=== PATIENT | male | born 1945 | race Two or more races ===

== ENCOUNTER 2016-09-03 09:06 | Inpatient (IN) | payer MEDICAID ==
[~2016-09-03] VITALS: Ht 170.2 cm; Wt 92.3 kg
[2016-09-03] VITALS (8 sets, daily range): BP systolic 131–150; BP diastolic 61–70; PULSE 64–75; RESP 18–22
[~2016-09-03 09:06] MED LIST: ATOR80TA75 PO; CALC0.255 PO; CARV25TA97 PO; CLOP75TA27 PO; GABA300C PO; INSU100C SC; ISOS30TA5 PO; LANT3I SC; LOSA50TA6 PO; NIT4 SL; TAMS-14 PO
[2016-09-03] MEDS ORDERED: ALBUTEROL 0.5% (NEB) 2.5 MG/0.5 ML AMP ONE (09:12)
[2016-09-03] MEDS ORDERED: IPRATROPIUM (NEB) 0.5 MG/2.5 ML AMP ONE (09:12)
[2016-09-03] MEDS ORDERED: METHYLPREDNISOLONE 125 MG INJ IV STA (09:17)
[2016-09-03] MEDS ORDERED: IPRATROPIUM (NEB) 0.5 MG/2.5 ML AMP INH STA (09:17)
[2016-09-03] MEDS ORDERED: ALBUTEROL 0.5% (NEB) 2.5 MG/0.5 ML AMP INH STA (09:17)
--- NOTE | 2016-09-03 09:39 | RADRPT ---
PROCEDURE: XR Chest. CLINICAL INDICATION: Shortness of breath with possible sepsis. TECHNIQUE: Single frontal view of the chest was obtained COMPARISON: No. FINDINGS: The soft tissues are normal. The film is under penetrated and limits bone detail. There is narrowi ng of the right subacromial joint space. Monitoring electrodes are draped across chest. The heart is enlarged. The cardiomediastinal silhouette and hilar structures are normal. The pulmonary vascul ature is increased. There are vascular calcifications in the aortic arch. Bilateral interstitial and alveolar pulmonary edema is identified. There are bilateral pleural effusions. IMPRESSION: 1. Cardiomegaly with congestive heart failure, interstitial pulmonary edema and bilateral pleural ef fusions. 2. Chronic right rotator cuff tear. RPTAT:AAJJ Physician Rose Date Time Electronically viewed and signed by Bossman Pineda Physician on 09/03/2016 09:38 VALORIE/
[2016-09-03] MEDS ORDERED: FER325 PO (09:49)
[2016-09-03] MEDS ORDERED: FINA5TAB4 PO (09:49)
[2016-09-03] MEDS ORDERED: DOCU-159 PO (09:49)
[2016-09-03] MEDS ORDERED: FURO-109 PO (09:50)
[2016-09-03] MEDS ORDERED: GABA300C16 PO (09:50)
[2016-09-03] MEDS ORDERED: INSU100C SQ (09:52)
[2016-09-03] MEDS ORDERED: ISOS30TA5 PO (09:52)
[2016-09-03] MEDS ORDERED: TICA90TA PO (09:53)
[2016-09-03] MEDS ORDERED: PANT40TA3 PO (09:53)
[2016-09-03 10:05] LABS: ADD SCAN DIFF NO
[2016-09-03 10:18] LABS: ALBUMIN 4.2 g/dl (3.3-4.9); POTASSIUM 3.7 mmol/L (3.5-5.1)
[2016-09-03 10:21] LABS: ALBUMIN/GLOBULIN RATIO 1.07; BILIRUBIN,INDIRECT 0.4 mg/dl (0-1.1); BILIRUBIN,TOTAL 0.4 mg/dl (0.2-1.3); CALCIUM 9.5 mg/dl (8.4-10.2); CREATININE 2.31 mg/dl (0.61-1.24); TOTAL PROTEIN 8.1 g/dl (6.1-8.1)
[2016-09-03 10:23] LABS: BASOPHILS % 0.4 % (0.0-2.0); EOSINOPHILS # 0.3 10^3/ul (0.0-0.5); HEMATOCRIT 40.4 % (42.0-52.0); HEMOGLOBIN 12.5 g/dl (14.0-18.0); LYMPHOCYTES # 1.8 10^3/ul (0.8-2.9); LYMPHOCYTES % 19.1 % (15.0-51.0); MEAN CORPUSCULAR HEMOGLOBIN 27.4 pg (29.0-33.0); MEAN CORPUSCULAR HGB CONC 30.9 g/dl (32.0-37.0); MEAN CORPUSCULAR VOLUME 88.4 fl (82.0-101.0); MEAN PLATELET VOLUME 11.6 fl (7.4-10.4); MONOCYTE # 0.4 10^3/ul (0.3-0.9); MONOCYTES % 4.2 % (0.0-11.0); NEUTROPHIL # 6.9 10^3/ul (1.6-7.5); PLATELET COUNT 240 10^3/UL (140-415); RED BLOOD COUNT 4.57 10^6/ul (4.70-6.10); WHITE BLOOD COUNT 9.5 10^3/ul (4.8-10.8)
[2016-09-03 10:27] LABS: INR 1.03; PROTIME 13.5 Sec (12.2-14.2); PT RATIO 1.1
[2016-09-03 10:28] LABS: PARTIAL THROMBOPLASTIN TIME 30.4 Sec (25.0-35.0)
[2016-09-03] MEDS ORDERED: FUROSEMIDE 40 MG INJ IV ONE (10:30)
[2016-09-03 10:32] LABS: TROPONIN-I 0.043 ng/ml (0.00-0.12)
[2016-09-03 10:37] LABS: ADD UMIC YES; URINE BILIRUBIN (Dip) NEGATIVE (NEGATIVE); URINE BLOOD (Dip) 1+ (NEGATIVE); URINE COLOR LT. YELLOW (YELLOW); URINE GLUCOSE (Dip) NEGATIVE (NEGATIVE); URINE KETONES (Dip) NEGATIVE (NEGATIVE); URINE LEUKOCYTE ESTERASE (Dip) NEGATIVE (NEGATIVE); URINE NITRITE (Dip) NEGATIVE (NEGATIVE); URINE TOTAL PROTEIN (Dip) 1+ (NEGATIVE); URINE UROBILINOGEN (Dip) 0.2 E.U./dL (0.1-1.0)
[2016-09-03 10:47] LABS: BACTERIA,URINE RARE; URINE RBCS 0-2 /HPF (0)
[2016-09-03] MEDS ORDERED: ONDANSETRON 4 MG INJ IV PRN (11:30)
[2016-09-03] MEDS ORDERED: ACETAMINOPHEN 325 MG TAB PO PRN ×2 (11:30→13:30)
--- NOTE | 2016-09-03 11:50 | ERA ---
ER Documentation Chief Complaint Date/Time DATE: 09/03/16 TIME: 11:36 Chief Complaint SOB SINCE THIS AM HPI This is a 71-year-old male with a known history of COPD, coronary artery disease with previous coronary artery bypass graft, cardiac stent placed at [facility] in Feb 2016 and congestive heart failure. Patient quit tobacco 20 years prior to arrival. The patient is on CPAP at night. About an hour prior to arrival the patient awoke and had severe difficulty breathing. His daughter indicated that he became diaphoretic. His dyspnea worsened and therefore she immediately brought the patient to the emergency department to be further evaluated. The patient has not had a productive or nonproductive cough. He has had no fevers or shaking or chills. He has not recently been placed on antibiotics. He has a severe allergy to aspirin which results in anaphylactic angioedema reaction. The patient denies any chest pain or pressure that radiates to the neck arm back or jaw ROS All systems reviewed and are negative except as per history of present illness. Medications Home Meds Reported Medications Ticagrelor* (Brilinta*) 90 Mg Tablet, 90 MG PO Q12, TAB 09/03/16 Pantoprazole* (Protonix*) 40 Mg Tablet.dr, 40 MG PO DAILY, TAB 09/03/16 Isosorbide Mononitrate* (Isosorbide Mononitrate*) 30 Mg Tab.er.24h, 30 MG PO DAILY, TAB 09/03/16 Insulin Lispro (Humalog) 100 Unit/1 Ml Cartridge, 5 UNIT SQ AC MEALS 09/03/16 Gabapentin* (Gabapentin*) 300 Mg Capsule, 300 MG PO QHS, #60 CAP 09/03/16 Furosemide* (Lasix*) 40 Mg Tablet, 40 MG PO DAILY, TAB 09/03/16 Finasteride* (Finasteride*) 5 Mg Tablet, 5 MG PO DAILY, TAB 09/03/16 Ferrous Sulfate* (Ferrous Sulfate*) 325 Mg Tabec, 325 MG PO BID, TAB 09/03/16 Docusate Sodium* (Docusate Sodium*) 100 Mg Capsule, 100 MG PO BID, #60 CAP 09/03/16 Insulin Glargine* (Lantus*) 100 Unit/Ml Soln, 40 UNIT SC HS, EA 01/24/15 Atorvastatin* (Atorvastatin*) 80 Mg Tablet, 80 MG PO HS, TAB 01/24/15 Carvedilol* (Coreg*) 25 Mg Tablet, 25 MG PO BID, TAB 01/24/15 Calcitriol* (Rocaltrol*) 0.25 Mcg Capsule, 0.25 MCG PO DAILY, CAP 01/24/15 Tamsulosin Hcl* (Flomax*) 0.4 Mg Cap.er.24h, 0.4 MG PO DAILY, CAP 01/24/15 Nitroglycerin* (Nitrostat*) 0.4 Mg Tab.subl, 0.4 MG SL Q5MIN Y for CHEST PAIN, BOTTLE 01/24/15 Discontinued Reported Medications Losartan Potassium* (Losartan Potassium*) 50 Mg Tablet, 50 MG PO DAILY, TAB 01/24/15 Insulin Lispro (Humalog) 100 U/Ml Cartridge, 20-25 UNITS SC AC MEALS, EA 01/24/15 Gabapentin* (Neurontin*) 300 Mg Capsule, 600 MG PO TID, CAP 01/24/15 Discontinued Scripts Isosorbide Mononitrate* (Isosorbide Mononitrate*) 30 Mg Tabsr, 60 MG PO DAILY, # 30 Prov:GREGORIOJERRY Fernandez 01/28/15 Clopidogrel Bisulfate (Clopidogrel) 75 Mg Tab, 75 MG PO DAILY for 30 Days, 2 Refills Prov:JERRY PERKINS 01/28/15 Allergies Allergies: Coded Allergies: amoxicillin (Verified Allergy, Intermediate, RASH, 09/03/16) aspirin (Verified Allergy, Intermediate, RASH, 09/03/16) ciprofloxacin (Verified Allergy, Intermediate, RASH, 09/03/16) niacin (Verified Allergy, Intermediate, RASH, 09/03/16) simvastatin (Verified Allergy, Intermediate, RASH, 09/03/16) tetracycline (Verified Allergy, Mild, RASH, 09/03/16) pentoxifylline (Verified Allergy, Unknown, VOMIT, 09/03/16) PMhx/Soc History of Surgery: Yes (bypasss, R great toe amputation, coronary stent, appendectomy) Anesthesia Reaction: No Hx Neurological Disorder: Yes (STROKE) Hx Respiratory Disorders: Yes (SLEEP APNEA USES CPAP AT NIGHT) Hx Cardiac Disorders: Yes (HTN, CAD, VASCULITIS, SC) Hx Psychiatric Problems: No Hx Miscellaneous Medical Probl: Yes (heart attack x8,htn, high cholesterol. PVD , renal insuff) Hx Alcohol Use: Yes (1/4 BOTTLE OF WHISKEY, STOPPED 3 YRS AGO) Hx Substance Use: Yes (ETOH) Hx Tobacco Use: Yes (PACK PER DAY, STOPPED 15 YRS AGO) Smoking Status: Former smoker Physical Exam Vitals Vital Signs Date Time Temp Pulse Resp B/P Pulse Ox O2 Delivery O2 Flow Rate FiO2 09/03/16 11:22 64 18 133/72 100 BIPAP 10.0 09/03/16 10:21 68 18 110/68 100 BIPAP 8.0 09/03/16 09:30 75 100 35 09/03/16 09:30 75 31 09/03/16 09:20 75 28 155/67 100 Non Rebreather 15.0 09/03/16 09:15 98.9 74 22 155/87 88 Physical Exam Constitutional:Well-developed. Well-nourished. Patient in severe respiratory distress HEENT:Normocephalic. Atraumatic.Pupils were equal round reactive to light. Moist mucous membranes.No tonsillar exudates. Neck: No nuchal rigidity. No lymphadenopathy. No posterior cervical spine tenderness or step-offs. Respiratory: Patient unable to speak without becoming short of breath. No breath sounds were heard on auscultation bilaterally. Tachypneic. Using accessory muscles of respirations. Cardiovascular: Tachycardic with regular rhythm.No murmurs. No rubs were appreciated.S1, S2 normal. Distal pulses are palpable 2+ bilaterally. GI: Abdomen was soft. Nontender. Non Distended. No pulsatile abdominal masses or bruits. No rebound. No guarding. Bowel sounds were present and normal. Muscle skeletal: Full range of motion of both the upper and lower extremities bilaterally.Normal muscle tone.No assymetrical calf tenderness or swelling. Skin: Diaphoretic with no petechia, no purpura. No lesions on the palms or the soles of the feet. No maculopapular rash. NEURO: Patient was alert, awake, orientated x3.No facial droop. Gait not observed as patient was in severe respiratory distress. No focal neurological deficits. Result Diagram: 09/03/1694709/03/1648 Results 24 hrs Laboratory Tests Test 09/03/16 09:45 09/03/16 09:48 Lactic Acid Level 1.1mmol/L White Blood Count 9.510^3/ul Red Blood Count 4.5710^6/ul Hemoglobin 12.5g/dl Hematocrit 40.4% Mean Corpuscular Volume 88.4fl Mean Corpuscular Hemoglobin 27.4pg Mean Corpuscular Hemoglobin Concent 30.9g/dl Red Cell Distribution Width 15.0% Platelet Count 55882^3/UL Mean Platelet Volume 11.6fl Neutrophils % 73.0% Lymphocytes % 19.1% Monocytes % 4.2% Eosinophils % 3.0% Basophils % 0.4% Nucleated Red Blood Cells % 0.0/100WBC Neutrophils # 6.910^3/ul Lymphocytes # 1.810^3/ul Monocytes # 0.410^3/ul Eosinophils # 0.310^3/ul Basophils # 0.010^3/ul Nucleated Red Blood Cells # 0.010^3/ul Prothrombin Time 13.5Sec Prothrombin Time Ratio 1.1 INR International Normalized Ratio 1.03 Activated Partial Thromboplast Time 30.4Sec Urine Color LT. YELLOW Urine Clarity CLEAR Urine pH 5.5 Urine Specific [place] 1.015 Urine Ketones NEGATIVE Urine Nitrite NEGATIVE Urine Bilirubin NEGATIVE Urine Urobilinogen 0.2 E.U./dL Urine Leukocyte Esterase NEGATIVE Urine Microscopic RBC 0-2/HPF Urine Microscopic WBC 0-2/HPF Urine Bacteria RARE Urine Hemoglobin 1+ Urine Glucose NEGATIVE% Urine Total Protein 1+ Sodium Level 142mmol/L Potassium Level 3.7mmol/L Chloride Level 103mmol/L Carbon Dioxide Level 26mmol/L Anion Gap 17 Blood Urea Nitrogen 39mg/dl Creatinine 2.31mg/dl Glucose Level 208mg/dl Calcium Level 9.5mg/dl Total Bilirubin 0.4mg/dl Direct Bilirubin 0.00mg/dl Indirect Bilirubin 0.4mg/dl Aspartate Amino Transf (AST/SGOT) 15IU/L Alanine Aminotransferase (ALT/SGPT) 19IU/L Alkaline Phosphatase 77IU/L Troponin I 0.043ng/ml B-Type Natriuretic Peptide 6460PG/ML Total Protein 8.1g/dl Albumin 4.2g/dl Globulin 3.90g/dl Albumin/Globulin Ratio 1.07 Amylase Level 103U/L Lipase 85U/L Current Medications Medications (Trade) Dose Ordered Sig/Caty Route PRN Reason Start Time Stop Time Status Last Admin Dose Admin Albuterol (Proventil 0.5% (Neb)) 10 mg ONCE STAT INH 09/03/16 09:17 4 09:24 DC 09/03/16 09:30 Ipratropium [place] (Atrovent 0.02% (Neb)) 1 mg ONCE STAT INH 09/03/16 09:17 09/03/16 09:24 DC 09/03/16 09:30 Methylprednisolone Sodium Succinate (Solu-Medrol) 125 mg ONCE STAT IV 09/03/16 09:17 09/03/16 09:24 DC 09/03/16 09:38 Furosemide (Lasix) 80 mg ONCE ONCE IV 09/03/16 10:30 09/03/16 10:31 DC 09/03/16 10:20 Ondansetron HCl (Zofran Inj) 4 mg ER BRIDGE PRN IV NAUSEA AND/OR VOMITING 09/03/16 11:30 4 11:29 Acetaminophen (Tylenol Tab) 650 mg ER BRIDGE PRN PO MILD PAIN/FEVER 09/03/16 11:30 09/04/16 11:29 Procedures/MDM The patient presented to the emergency department with dyspnea. My differential diagnosis included but was not limited to upper airway obstruction, CHF, pulmonary embolism, cardiac ischemia, pneumonia, pneumothorax, anemia, drug overdose, pulmonary edema, COPD or asthma. The patient was immediately placed in a all around patternmaker continuous pulse oximetry and IV access was established. The patient was in severe respiratory distress and was immediately placed on noninvasive mechanical ventilation. The chest radiograph showed pulmonary vascular congestion, the patients BNP was elevated at 6460 and his physical exam findings I did feel were result of a combination of CHF as well as COPD. The patient was placed on continuous nebulizer treatments of albuterol Atrovent given 125 mg of Solu-Medrol. He was also given intravenous Lasix. The patient did not appear to have an infectious etiology at this time as there is no leukocytosis he was afebrile and no evidence of pneumonia. The patient had an elevated BUN and creatinine and has no history of end-stage renal disease, therefore emergent dialysis was not required at this time as his presentation did not appear to be fluid overload but rather pulmonary vascular congestion from CHF 12 Lead EKG tracing ordered and reviewed by myself showed: Normal sinus rhythm of 75 bpm and no arrhythmia. MN interval normal. QRS duration normal. No ST segment elevation No ST segment depression. No changes consistent with acute ischemia. The patient's respiratory distress significantly improved. However he remained on the BiPAP. He will be admitted in serious condition to the hospitalist Dr. Hu with an anticipated stay of greater than 2 midnights Critical Care: Time: 50 minutes Treatments/Evaluations: Close monitoring and treatment of unstable vital signs, cardiorespiratory, and neurologic status, while maintaining tight balance of fluid, respiratory, and cardiac interventions. Time does not include performing any of the above billable procedures. Departure Diagnosis: Primary Impression: CHF exacerbation Qualified Code: I50.9 - Acute on chronic congestive heart failure, unspecified congestive heart failure type Additional Impressions: COPD exacerbation Renal failure Condition: Serious JOSE ADHIKARI Sep 03, 2016 11:48
[2016-09-03] MEDS ORDERED: MAGNESIUM HYDROXIDE 30ML CUP PO PRN (13:30)
[2016-09-03] MEDS ORDERED: DOCUSATE SODIUM 100 MG CAP PO PRN (13:30)
[2016-09-03] MEDS ORDERED: BISACODYL 10 MG SUPP PR PRN (13:30)
[2016-09-03] MEDS ORDERED: HYDROCODONE/APAP (5/325) TAB PO PRN ×2 (13:30)
[2016-09-03] MEDS ORDERED: NACL 0.9% 3 ML SYG IV SCH (13:30)
[2016-09-03] MEDS ORDERED: ACETAMINOPHEN 650 MG SUPP PR PRN (13:30)
[2016-09-03] MEDS ORDERED: NITROGLYCERIN (SL) 0.4 MG TAB SL PRN (13:30)
[2016-09-03] MEDS ORDERED: morphine 2 MG INJ IV PRN (13:30)
[2016-09-03 14:43] LABS: TROPONIN-I 0.023 ng/ml (0.00-0.12)
[2016-09-03 14:48] LABS: CK-MB 0.86 ng/ml (0.0-2.4)
[2016-09-03] MEDS ORDERED: FUROSEMIDE 40 MG INJ IV SCH (16:30)
[2016-09-03] MEDS: INSULIN ASPART [NOVOLOG] 3 ML PEN SC SCH ×3 (17:20→20:45)
[2016-09-03] MEDS: FUROSEMIDE 40 MG INJ IV SCH (17:22)
[2016-09-03 20:07] LABS: CK-MB 1.07 ng/ml (0.0-2.4)
[2016-09-03 20:10] LABS: TROPONIN-I 0.03 ng/ml (0.00-0.12)
[2016-09-03] MEDS: DOCUSATE SODIUM 100 MG CAP PO SCH (20:42)
[2016-09-03] MEDS: FERROUS SULFATE (EC) 325 MG TAB PO SCH (20:42)
[2016-09-03] MEDS: TAMSULOSIN (SR) 0.4 MG CAP PO SCH (20:43)
[2016-09-03] MEDS: GABAPENTIN 300 MG CAP PO SCH (20:43)
[2016-09-03] MEDS: TICAGRELOR 90 MG TABLET PO SCH (20:44)
[2016-09-03] MEDS: INSULIN GLARGINE [LANtus] 3 ML PEN SC SCH (20:45)
[2016-09-04] VITALS (11 sets, daily range): BP systolic 112–141; BP diastolic 56–71; PULSE 65–70; RESP 18–19
[2016-09-04 01:30] LABS: ADD UMIC YES; URINE BILIRUBIN (Dip) NEGATIVE (NEGATIVE); URINE BLOOD (Dip) TRACE (NEGATIVE); URINE COLOR LT. YELLOW (YELLOW); URINE KETONES (Dip) NEGATIVE (NEGATIVE); URINE LEUKOCYTE ESTERASE (Dip) NEGATIVE (NEGATIVE); URINE NITRITE (Dip) NEGATIVE (NEGATIVE); URINE TOTAL PROTEIN (Dip) TRACE (NEGATIVE); URINE UROBILINOGEN (Dip) 0.2 E.U./dL (0.1-1.0)
[2016-09-04 01:42] LABS: SQUAMOUS EPITHELIAL CELL,UR FEW
[2016-09-04] MEDS: ACCU-CHEK XX SCH (02:00)
--- NOTE | 2016-09-04 03:43 | CONS ---
DATE OF ADMISSION: 09/03/2016 DATE OF CONSULTATION: 09/03/2016 PULMONARY CONSULTATION REASON FOR CONSULTATION: Respiratory insufficiency. HISTORY OF PRESENT ILLNESS: Briefly, this is a 71-year-old gentleman with numerous medical problems including a history of hypertension, diabetes, CVA, peripheral vascular disease, coronary artery di sease status post recent stent placement at [facility] back in 2016 on dual anti platelet therapy as well as history of chronic renal insufficiency who presents with history of wors ening shortness of breath over a course of a few days, found on initial evaluation to be in mild pul monary edema with associated elevation in BNP, treated in the emergency room for suspected chronic o bstructive pulmonary disease exacerbation plus/minus CHF. At this point, he is off noninvasive posi tive pressure ventilation on nasal cannula. PAST MEDICAL HISTORY: As noted above. MEDICATIONS: Please see MAR. ALLERGIES: 1. AMOXICILLIN. 2. ASPIRIN. 3. CIPRO 4. NIACIN. 5. SIMVASTATIN. 6. TETRACYCLINE. 7. PENTOXIFYLLINE. MEDICATIONS: Please see MAR. SURGICAL HISTORY: Right toe amputation, stent placement, appendectomy. Additionally, he has a history of sleep apnea on CPAP. SOCIAL HISTORY: Prior tobacco. No current tobacco, alcohol, or illicit drug use. FAMILY HISTORY: Noncontributory. REVIEW OF SYSTEMS: As noted in the HPI. PHYSICAL EXAMINATION: GENERAL: A well-nourished, pleasant gentleman in no acute distress. VITAL SIGNS: Blood pressure is 150/70, heart rate is 74, saturation is 96% on 3 liters nasal cannul a. HEENT: Normocephalic, atraumatic. NECK: Supple, no thyromegaly. Jugular venous pressure is mildly elevated at about 15 cm of water. CARDIOVASCULAR: Regular rate and rhythm, S1, S2. Distant heart sounds in general. No obvious murm urs, rubs, or gallops. CHEST: Bibasilar crackles heard. ABDOMEN: Soft, nontender. EXTREMITIES: There is trace lower extremity edema bilaterally. LABORATORY DATA: Hemoglobin is 12.5, WBC is 9.5, BUN is 39, creatinine is 2.3. BNP is 6460. IMPRESSION: 1. Congestive heart failure exacerbation in a patient with known history of CHF as well as history of coronary artery disease. At this point, does not appear to be having an ACS; however, we will co ntinue to follow troponins and EKG. 2. History of chronic obstructive pulmonary disease. 3. History of coronary artery disease status post PCI. 4. Chronic kidney disease, stage III. 5. History of peripheral vascular disease. 6. History of cerebrovascular accident. RECOMMENDATIONS: 1. Gentle diuresis with Lasix IV. 2. Follow strict I's and O's and daily weights. 3. Resume current cardiac regimen as well as dual antiplatelet therapy. 4. Taper off corticosteroids as I do not believe this is a COPD exacerbation. 5. Obtain 2-D echo to evaluate LV function. 6. DVT prophylactic measures to be implemented. Dictated By: CLIFFORD KIRBY MD NK/NTS Conf#: [id number] DID#: [id number] CC: LUISITO SMITH MD;*End*
[2016-09-04 04:33] LABS: AADO2 Arterial 79.9 mmHg (7.0-24.0); Allen Test ACCEPTAB; Arterial Base Excess -0.8 mmol/L (-3.0-3); Arterial COHb 0.3 % (0.0-3.0); Arterial Fraction of Oxyhgb 96.3 % (93.0-99.0); Arterial HCO3 22.7 mmol/L (22.0-26.0); Arterial MetHb 0.4 % (0.0-1.5); Arterial Total Hemglobin 11.8 g/dl (12.0-18.0); MODE NASAL CANNULA
[2016-09-04] MEDS: FUROSEMIDE 40 MG INJ IV SCH ×2 (05:26→17:25)
[2016-09-04] MEDS: PANTOPRAZOLE 40 MG INJ IV SCH (05:26)
--- NOTE | 2016-09-04 05:54 | CONS ---
DATE OF ADMISSION: 09/03/2016 DATE OF CONSULTATION: 09/03/2016 REQUESTING PHYSICIAN: Dr. Gonzales NEPHROLOGY CONSULTATION REASON FOR CONSULTATION: Acute kidney injury. HISTORY OF PRESENT ILLNESS: This is a 71-year-old male with a past medical history of CKD, stage IV , with an estimated EGFR around 20 to 25 mL per minute, history of COPD, coronary artery disease, hi story of coronary artery bypass graft, history of hypertension, neuropathy, and BPH who presents to [facility] with shortness of breath. The patient stated about 1 hour prior to arr ival he woke up with severe shortness of breath, difficulty breathing, and diaphoretic with dyspnea on exertion. As a result, the patient was brought over to the emergency room. Upon arrival to the emergency room, the patient had a chest x-ray which showed findings of cardiomegaly, CHF, interstiti al edema. The patient's laboratory data drawn showed a white count of 9.5, BUN of 39, creatinine 2. 31. In the emergency room, the patient was given IV diuretic therapy and admitted to telemetry for evaluation of congestive heart failure exacerbation. In terms of the patient's renal history, the patient has underlying CKD, stage IV. He is being foll owed by a languages and literature instructor at [facility]. The patient states that his renal function has been stable. He denies any recent episodes of hemoptysis, hematemesis, or hematochezia or any frothy urine. PAST MEDICAL HISTORY: As stated above, history of CKD, stage IV, history of hypertension, history o f coronary artery disease, history of COPD, history of CVA, history of sleep apnea. PAST SURGICAL HISTORY: Status post bypass, status post right toe amputation, status post appendecto my. FAMILY HISTORY: Noncontributory. ALLERGIES: MULTIPLE. PLEASE SEE LIST. MEDICATIONS: The patient's medications have been reviewed. SOCIAL HISTORY: Does not drink or smoke at this time, was a previous smoker. REVIEW OF SYSTEMS: A 14-point review of systems was conducted. Pertinent positives as stated in HP I, otherwise negative. PHYSICAL EXAMINATION: VITAL SIGNS: Blood pressure is 150/70, respirations 20, pulse 74, temperature 98.0. HEENT: Head is normocephalic. NECK: Supple. HEART: Regular rate. LUNGS: Show diminished breath sounds at base. ABDOMEN: Soft, nontender to palpation. No rebound or guarding. EXTREMITIES: Negative for clubbing, cyanosis, no edema. DERMATOLOGIC: No rashes. MUSCULOSKELETAL: No joint effusions. NEUROLOGIC: No change in exam. MEDICATIONS: The patient's medications have been reviewed. LABORATORY DATA: Showed sodium 142, potassium 3.7, chloride 103, BUN 39, creatinine 2.31. White co unt 9.5, hemoglobin 10.5, hematocrit 40.4, platelet count 240. IMAGING STUDIES: As stated in HPI. ASSESSMENT AND PLAN: This is a 71-year-old male who presents with 1. Chronic kidney disease, stage IV, with questionable acute kidney injury. The patient has a base line EGFR around 20 to 25 mL per minute. The patient's current creatinine at 2.31 gives an estimate d GFR around 27 mL per minute. This may be at the patient's baseline. The patient's urinalysis kobe ws no active sediment. Plan at this point would be to continue current treatment plan. Continue di uretic therapy. Treat underlying congestive heart failure. Continue IV diuretics to treat underlyi ng congestive heart failure. We will monitor renal function closely. Would otherwise continue supp ortive care, renally dose all meds, and avoid nephrotoxins. 2. Acute congestive heart failure exacerbation, possible systolic, diastolic. The patient's chest x-ray shows evidence of pulmonary congestion. Continue current medical management with diuretic the rapy. Consider 2D echo. Consider checking serial troponins to rule out acute coronary syndrome. C onsider cardiology evaluation. 3. Anemia of chronic disease. We will continue to monitor H and H levels. No need for Epogen. 4. Mineral bone disorder. Continue to monitor calcium and phosphorus levels. No need for phosphat e binders. Continue vitamin D analog. 5. History of coronary artery disease status post coronary artery bypass graft. Continue medical m anagement. 6. Hypertension. Continue current blood pressure regimen. 7. Diabetes. Continue Accu-Cheks and insulin sliding scale. 8. Benign prostatic hypertrophy. Continue Proscar and Flomax. 9. History of chronic obstructive pulmonary disease. Continue current medical management. Continu e nebulizers. 10. History is sleep apnea. Continue nightly CPAP. 11. History of cerebrovascular accident. Continue medical management. Thank you for this interesting consultation. It will be a pleasure to follow the patient with you t hroughout the hospital course. Dictated By: MARTIN GAO/BEVERLY Conf#: [id number] DID#: [id number]
[2016-09-04] MEDS ORDERED: VANCOMYCIN IV PER PHARMACY XX SCH (06:30)
[2016-09-04 07:44] LABS: ADD SCAN DIFF NO
[2016-09-04 08:08] LABS: BASOPHILS % 0.1 % (0.0-2.0); EOSINOPHILS % 0.1 % (0.0-7.0); HEMOGLOBIN 10.9 g/dl (14.0-18.0); LYMPHOCYTES # 1.4 10^3/ul (0.8-2.9); LYMPHOCYTES % 9.6 % (15.0-51.0); MEAN CORPUSCULAR HEMOGLOBIN 27.7 pg (29.0-33.0); MEAN CORPUSCULAR HGB CONC 32.1 g/dl (32.0-37.0); MEAN CORPUSCULAR VOLUME 86.3 fl (82.0-101.0); MEAN PLATELET VOLUME 11.7 fl (7.4-10.4); MONOCYTE # 0.9 10^3/ul (0.3-0.9); MONOCYTES % 5.9 % (0.0-11.0); NEUTROPHIL # 12.2 10^3/ul (1.6-7.5); NEUTROPHILS % 83.8 % (39.0-77.0); PLATELET COUNT 220 10^3/UL (140-415); RED BLOOD COUNT 3.94 10^6/ul (4.70-6.10); RED CELL DISTRIBUTION WIDTH 14.8 % (11.5-14.5); WHITE BLOOD COUNT 14.5 10^3/ul (4.8-10.8)
[2016-09-04 08:14] LABS: ALBUMIN 3.6 g/dl (3.3-4.9)
[2016-09-04 08:15] LABS: POTASSIUM 3.6 mmol/L (3.5-5.1)
[2016-09-04 08:16] LABS: CREATININE 2.33 mg/dl (0.61-1.24)
[2016-09-04 08:17] LABS: ALBUMIN/GLOBULIN RATIO 1.05; BILIRUBIN,INDIRECT 0.4 mg/dl (0-1.1); BILIRUBIN,TOTAL 0.4 mg/dl (0.2-1.3); CALCIUM 8.7 mg/dl (8.4-10.2); PHOSPHORUS 4.4 mg/dl (2.5-4.9)
[2016-09-04 08:18] LABS: CHOL/HDL RATIO 5.1 RATIO; MAGNESIUM 2.1 mg/dl (1.7-2.5)
[2016-09-04 08:34] LABS: T3 UPTAKE 43.5 % (23.5-40.5)
[2016-09-04] MEDS: INSULIN ASPART [NOVOLOG] 3 ML PEN SC SCH ×7 (08:45→20:38)
[2016-09-04] MEDS: DOCUSATE SODIUM 100 MG CAP PO SCH ×2 (08:46→20:35)
[2016-09-04] MEDS: FINASTERIDE 5 MG TAB PO SCH (08:46)
[2016-09-04] MEDS: VANCOMYCIN 1.75 GM in NS 500 ML IVPB SCH (08:46)
[2016-09-04] MEDS: CALCITRIOL 0.25 MCG CAP PO SCH (08:46)
[2016-09-04] MEDS: ISOSORBIDE MONONITRATE(SR)30 MG TAB PO SCH (08:47)
[2016-09-04 08:48] LABS: THYROID STIMULATING HORMONE 1.15 MIU/L (0.465-4.680)
[2016-09-04] MEDS: TICAGRELOR 90 MG TABLET PO SCH ×2 (08:49→20:37)
[2016-09-04] MEDS ORDERED: PANTOPRAZOLE (EC) 40 MG TAB PO SCH (09:00)
[2016-09-04] MEDS: FERROUS SULFATE (EC) 325 MG TAB PO SCH ×2 (09:01→20:35)
--- NOTE | 2016-09-04 09:05 | HP ---
DATE OF ADMISSION: 09/03/2016 CHIEF COMPLAINT: Shortness of breath. HISTORY OF PRESENT ILLNESS: This is a 71-year-old male with reported past medical history of etienne ry artery disease with myocardial infarction in the past, status post PCI, as well as hypertensive u rgency, 3-vessel coronary artery disease status post multiple PCI, dyslipidemia, insulin-dependent d iabetes, peripheral vascular disease, acute on chronic kidney disease, carotid stenosis, hypertensio n, BPH, who did come to [facility] due to reports of shortness of breath. Accordi ng to the patient, he was in his normal state of health until last night. He started to experience shortness of breath, progressively worse. No associated chest pain, nausea, vomiting or abdominal p ain. He did report compliance with his home medications. He does have inhalers at home, but only p .r.n. Progressively, he became orthopneic and as such came to [facility] for furt her evaluation. Upon examination, he did have further chest radiograph done on 09/03/2014 that did show cardiomegaly with CHF and interstitial pulmonary edema and bilateral pleural effusions. He did also have initial troponin drawn which was negative x2. BNP was noted at 6460 with clinical pictur e of CHF exacerbation. He also was seen with some renal insufficiency with BUN of 39 and creatinine of 2.31 respectively. He remained afebrile. He was placed on BiPAP with good response. He did al so receive Lasix in the ER and did also have good response of his respiratory status, status post ad ministration. No leukocytosis noted. He does report feeling better at this time. No other specifi c complaints. We will evaluate him for the aforementioned issues. MEDICAL AND SURGICAL HISTORY 1. Congestive heart failure. 2. Non-ST elevated myocardial infarction. 3. Coronary artery disease status post multiple PCI. 4. Three-vessel coronary artery disease with patent ostial left anterior descending artery stent. 5. Hypertensive urgency. 6. Dyslipidemia. 7. Insulin-dependent diabetes. 8. PVD. 9. Renal insufficiency. 10. Carotid stenosis. 11. History of cerebrovascular accident. SOCIAL HISTORY: The patient does admit to smoking heavily 20 years ago, roughly 1 pack a day for ov er 20 years. He denies any illicit drug use or alcohol consumption. FAMILY HISTORY: Noncontributory. ALLERGIES: 1. AMOXICILLIN. 2. ASPIRIN. 3. CIPROFLOXACIN. 4. NIACIN. 5. PENTOXIFYLLINE. 6. SIMVASTATIN. 7. TETRACYCLINE. HOME MEDICATIONS: 1. Flomax 0.4 mg p.o. daily. 2. Ferrous sulfate 325 mg p.o. b.i.d. 3. Brilinta 90 mg p.o. b.i.d. 4. Atorvastatin 80 mg p.o. at bedtime. 5. Coreg 25 mg p.o. b.i.d. 6. Isosorbide mononitrate 30 mg p.o. daily. 7. Nitrostat 0.4 mg sublingual every 5 minutes as needed for chest pain. 8. Neurontin 300 mg p.o. at bedtime. 9. Lasix 40 mg p.o. daily. 10. Colace 100 mg p.o. b.i.d. 11. Protonix 40 mg p.o. daily. 12. Lantus 40 units subcutaneous at bedtime. 13. Humalog 5 units subcutaneous with meals. 14. Calcitriol 0.25 mcg p.o. daily. 15. Finasteride 5 mg p.o. daily. REVIEW OF SYSTEMS: A 12-point review of systems obtained and is entirely negative except that menti oned in the history of present illness. PHYSICAL EXAMINATION: VITAL SIGNS: Temperature is 97.4, pulse 63, respiratory rate 22, blood pressure is 131/61 and pulse oximetry is 96% on 35% FIO2 with BiPAP in place. GENERAL: This is a 71-year-old male, appears stated age with less respiratory distress noted at thi s time. EYES: Pupils equal, round and reactive to light. Anicteric sclerae. NECK: Supple, nontender, no JVD. CARDIOVASCULAR: S1, S2 auscultated, regular rate. PULMONARY: Diminished at lung bases. No obvious wheezing or rhonchi. ABDOMEN: Protuberant, soft, nontender. EXTREMITIES: There is noted edema of bilateral lower extremities, +1 to +2. SKIN: Warm, dry, and intact. NEUROLOGIC: Alert, oriented x3. LABORATORY DATA: WBC 9.5, hemoglobin 12.5, hematocrit 40.4, platelets are 240. Sodium 142, potassi um 3.7, BUN is 39, creatinine 2.31. BNP of 6460. Initial troponin I of 0.043. IMAGING: Chest x-ray done on 09/03/2016 did show cardiomegaly with congestive heart failure, inters titial pulmonary edema, and bilateral pleural effusions. IMPRESSION AND PLAN: 1. Dyspnea secondary to congestive heart failure with exacerbation. We will provide with spot diur esis with careful monitoring of renal function. We will get followup echocardiogram. We will trend serial troponins. We will get [employer] technical lead senior developer to follow. 2. Dyspnea secondary to suspect chronic obstructive pulmonary disease. The patient with extensive history of cigarette smoking. We will provide him with bronchodilators as needed. No active bronch ospasm noted at this time. 3. History of coronary artery disease with multivessel coronary artery disease. We will continue t he patient on antiplatelet therapy. Continue optimization of his cardiovascular medications. 4. History of congestive heart failure. We will follow up echocardiogram. Continue diuresis. 5. Essential hypertension. We will resume patient's antihypertensives and adjust as needed. 6. History of diabetes. Follow up on A1c. We will resume patient's basal insulin and sliding scal e. We will adjust as needed. 7. History of dyslipidemia. Follow up on fasting lipid panel. We will continue the patient on his statin medication. 8. Benign prostatic hypertrophy. Continue on Flomax and finasteride. 9. Renal insufficiency. Avoid nephrotoxic medications. In School Suspension Aide to follow. 10. History of PVD/PAD. Continue on antiplatelet therapy. 11. History of cerebrovascular accident. No active issue at this time. We will monitor. ADMISSION PROCESS TIME: 40 minutes. Discussed plan of care with Dr. Hu. Dictated By: VALERIE REYES [employer] for KATLYN ALEX/BEVERLY Conf#: [id number] DID#: [id number]
--- NOTE | 2016-09-04 09:50 | PN ---
DATE: 09/04/2016 SUBJECTIVE: The patient is stable. No acute events overnight. No fevers, chills, nausea, vomiting . No shortness of breath. OBJECTIVE: VITAL SIGNS: Blood pressure is 112/60, respiration 18, pulse 73, temperature 98.2. HEENT: Head is normocephalic. NECK: Supple. HEART: Regular rate. LUNGS: Show diminished breath sounds at base. ABDOMEN: Soft, nontender to palpation without rebound or guarding. EXTREMITIES: Negative for clubbing, cyanosis. Trace edema. DERMATOLOGIC: No rashes. MUSCULOSKELETAL: No joint effusions. NEUROLOGIC: No change in exam. MEDICATIONS: The patient's medications have been reviewed. LABORATORY DATA: Shows sodium 141, potassium 3.6, chloride 107, BUN 49, creatinine 2.33. White cou nt 14.5, hemoglobin 10.9, hematocrit 34.0, platelet count is 220. Urinalysis was reviewed, nonactiv e. The patient's protein creatinine ratio approximately 500 mg per gram of creatinine. ASSESSMENT AND PLAN: 1. Chronic kidney disease, stage IV, with a baseline EGFR of around 20 to 25 mL per minute. The pa bev is currently at baseline. The patient's renal function has been stable on diuretic therapy. At this point, continue current treatment plan, supportive care, renally dose all meds. Please note that the patient's urinalysis was reviewed. There is no evidence of active sediment. 2. Acute congestive heart failure exacerbation, systolic, diastolic. The patient is clinically imp roving. Continue current diuretic regimen and monitor renal function closely. 3. Anemia of chronic disease. Continue to monitor hemoglobin and hematocrit levels. 4. Mineral bone disorder. Continue to monitor calcium and phosphorus levels. No need for phosphat e binders. Continue vitamin D analogs. 5. History of coronary artery disease status post CABG. Continue medical management. 6. Acute respiratory failure. Etiology us secondary to congestive heart failure exacerbation. The patient is clinically improving. Continue current medical management. 7. Diabetes. Continue Accu-Cheks and sliding scale. 8. Benign prostatic hypertrophy. Continue Proscar and Flomax. 9. History of chronic obstructive pulmonary disease. Continue current treatment plan. Follow up w ith Pulmonary. 10. History of sleep apnea. Continue CPAP. 11. History of chronic obstructive pulmonary disease. Continue current treatment plan. Dictated By: MARTIN GAO/NTS Conf#: [id number] DID#: [id number]
--- NOTE | 2016-09-04 15:18 | RADRPT ---
Echocardiogram Report Patient Name: JANIE WEBER Gender: Male Date: 1945 Study Date: 04-Sep-2016 [place]: ZIGGY Location: I Ref. Physician: VALERIE REYES Quality: Technically Difficult Study Procedures: Transthoracic echocardiogram with 2D, M-Mode, and Doppler examination. Indications: Congestive Heart Failure. 2D/M Mode Doppler Measurement Value Normal Ranges Measurement Value Normal Ranges AoR Diam MM 3.2 cm WILLIS Vmax 0.7 cm2 LVIDd 2D 4.2 3.5 - 5.6 cm WILLIS VTI 0.7 cm2 LVIDs 2D 3.6 2.1 - 4.1 cm AV Mean Ketan 1.8 m/sec LVPWd 2D 1.4 0.6 - 1.1 cm AV Mean PG 13.7 mmHg IVSd 2D 1.6 0.6 - 1.1 cm AV Peak Ketan 2.3 m/sec EDV 2D 77.8 cm3 AV Peak PG 21.7 mmHg ESV 2D 46.1 cm3 AV VTI 50.6 cm LA Dimen 2D 4.4 2.3 - 4.0 cm LVOT Mean Ketan 0.4 m/sec LVOT Diam 2.0 cm LVOT Mean PG 0.6 mmHg LVOT Peak Ketan 0.5 m/sec LVOT Peak PG 1.2 mmHg LVOT VTI 12.5 cm MV E Peak Ketan 1.3 m/sec MV A Peak Ketan 0.2 m/sec MV E/A 6.5 MV Decel Time 121 msec MV Decel [place] 11 MV E/A 6.5 Findings Left Ventricle: Normal left ventricular cavity size. Mild concentric left ventricular hypertrophy. Severe left ventricular systolic dysfunction. Ejection fraction is visually estimated at 2025 %. Tissue Doppler/Mitral Doppler indices are consistent with restrictive physiology with markedly elevated left atrial pressure (Stage IIIIV diastolic dysfunction). E/E`=21. Right Ventricle: Normal right ventricular size. Left Atrium: There is mild enlargement of left atrium. Right Atrium: The right atrium is normal in size. Atrial Septum: Normal atrial septum. Mitral Valve: Mild mitral annular calcification. Mild to moderate mitral valve regurgitation. Aortic Valve: Severe aortic stenosis. Aortic valve Max velocity 2.30 m/sec. Max PG 22.00 mmHg. Mean PG 14.00 mmHg. Aortic valve area 0.70 cm2. Aortic cusps appear moderate to severely calcified. Tricuspid Valve: Normal appearance of the tricuspid valve. There is trace tricuspid regurgitation. Pulmonic Valve: Pulmonic valve not well visualized. Pericardium: Normal pericardium with no significant pericardial effusion. Bilateral pleural effusion seen. Aorta: Normal aortic root size with decreased excursion. IVC: Normal size and normal respiratory collapse consistent with normal right atrial pressure. Pulmonary Artery: Not well visualized. Conclusions 1.The left ventricle is normal in size with severely reduced systolic function. 2.Estimated left ventricular ejection fraction of 20-25%. 3.Mild concentric left ventricular hypertrophy. 4.Severe aortic stenosis (transvalvular gradient is likely low due to low ejection fraction and low flow). Electronically Signed By: Brennen Sellers 04-Sep-2016 15:18:02 -0700 Patient Name: JANIE WEBER Study Date: 04-Sep-2016 [id number]
--- NOTE | 2016-09-04 15:22 | PN ---
Date/Time of Note Date/Time of Note DATE: 09/04/16 TIME: 15:16 Assessment/Plan Lines/Catheters IV Catheter Type (from [facility]): Peripheral IV Urinary Cath still in place: No Assessment/Plan Chief Complaint/Hosp Course 1. Dyspnea secondary to congestive heart failure with exacerbation. cont diuresis as needed. f/u echo. troponins negative. 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 2. Dyspnea secondary to suspect chronic obstructive pulmonary disease. The patient with extensive history of cigarette smoking. We will provide him with bronchodilators as needed. improving at present 3. History of coronary artery disease with multivessel coronary artery disease. cont antiplatelet therapy. Continue optimization of his cardiovascular medications. 4. History of congestive heart failure. We will follow up echocardiogram. Continue diuresis. 5. Essential hypertension. cont on antihypertensives 6. History of diabetes. cont insulin regimen and adjust as needed 7. History of dyslipidemia. cont statin medication 8. Benign prostatic hypertrophy. Continue on Flomax and finasteride. 9. Renal insufficiency. cont with nephrology recs 10. History of PVD/PAD. Continue on antiplatelet therapy. 11. History of cerebrovascular accident. No active issue at this time. We will monitor. DISPO/PLAN: appears to be improving with resp status. titrate down o2 as tolerated. cont inpatient monitoring Discussed plan of care with Dr. Hu Problems: Subjective 24 Hr Interval Summary Free Text/Dictation resting at this time. does report better breathing Exam/Review of Systems Vital Signs Vitals Vital Signs Date Time Temp Pulse Resp B/P Pulse Ox O2 Delivery O2 Flow Rate FiO2 09/04/16 12:03 69 09/04/16 11:41 97.9 19 124/60 96 09/04/16 08:23 3.0 09/04/16 08:00 Nasal Cannula 09/03/16 12:48 35 Intake and Output 09/03/16 09/03/16 09/04/16 15:00 23:00 07:00 Intake Total 240 ml Output Total 850 ml Balance -610 ml Exam Constitutional: alert, oriented Psych: nl mood/affect Head: normocephalic Eyes: nl conjunctiva Neck: supple, non-tender, No jvd Respiratory: diminished at lung bases. less congested Cardiovascular: regular rate and rhythm Gastrointestinal: soft, non-tender Musculoskeletal: nl extremities to inspection, nl gait and stance Extremities: normal pulses Neurological: nl mental status, nl speech, nl strength Skin: minimal edema ble Results Result Diagram: 09/04/16 0650 09/04/16 0650 Results 24 hrs Laboratory Tests Test 09/03/16 17:18 09/03/16 19:20 09/03/16 20:12 09/04/16 01:10 Bedside Glucose 255 H 252 H Creatine Kinase 32 Creatine Kinase Index 3.3 Creatinine Kinase MB (Mass) 1.07 Troponin I 0.030 Urine Color LT. YELLOW Urine Clarity CLEAR Urine pH 5.0 Urine Specific Benson 1.015 Urine Ketones NEGATIVE Urine Nitrite NEGATIVE Urine Bilirubin NEGATIVE Urine Urobilinogen 0.2 E.U./dL Urine Leukocyte Esterase NEGATIVE Urine Microscopic RBC 5-10 Urine Microscopic WBC 0-2 Urine Squamous Epithelial Cells FEW Urine Hemoglobin TRACE Urine Random Creatinine 58.26 Urine Random Sodium 40 Urine Glucose 0.1% H Urine Total Protein 22.0 H Test 09/04/16 02:01 09/04/16 05:00 09/04/16 06:50 09/04/16 07:39 Bedside Glucose 217 158 Blood Gas Specimen Source Blood arterial Arterial Blood Date Drawn 09/04/2016 4:23:08 AM Arterial Blood pH (Temp corrected) 7.445 Arterial Blood pCO2 (Temp correct) 33.8 L Arterial Blood pO2 (Temp corrected) 94.3 H Arterial Blood HCO3 22.7 Arterial Blood Base Excess -0.8 Arterial Blood Oxygen Saturation 97.0 Jack Test ACCEPTAB Arterial Blood Gas Puncture Site Right Radial Arterial Blood Carboxyhemoglobin 0.3 Arterial Blood Methemoglobin 0.4 Blood Gas A-a O2 Differential 79.9 H Oxyhemoglobin Percent 96.3 Total Hemoglobin 11.8 L Blood Gas Temperature 37.0 Blood Gas Modality NASAL CANNULA FiO2 30.0 Blood Gas Notified Whom LW Blood Gas Notified Time 09/04/2016 4:33:37 AM White Blood Count 14.5 #H Red Blood Count 3.94 L Hemoglobin 10.9 L Hematocrit 34.0 L Mean Corpuscular Volume 86.3 Mean Corpuscular Hemoglobin 27.7 L Mean Corpuscular Hemoglobin Concent 32.1 Red Cell Distribution Width 14.8 H Platelet Count 220 Mean Platelet Volume 11.7 H Neutrophils % 83.8 H Lymphocytes % 9.6 L Monocytes % 5.9 Eosinophils % 0.1 Basophils % 0.1 Nucleated Red Blood Cells % 0.0 Neutrophils # 12.2 H Lymphocytes # 1.4 Monocytes # 0.9 Eosinophils # 0.0 Basophils # 0.0 Nucleated Red Blood Cells # 0.0 Sodium Level 141 Potassium Level 3.6 Chloride Level 107 Carbon Dioxide Level 26 Anion Gap 12 Blood Urea Nitrogen 49 H Creatinine 2.33 H Glucose Level 166 Hemoglobin A1c 9.4 H Calcium Level 8.7 Phosphorus Level 4.4 Magnesium Level 2.1 Total Bilirubin 0.4 Direct Bilirubin 0.00 Indirect Bilirubin 0.4 Aspartate Amino Transf (AST/SGOT) 15 Alanine Aminotransferase (ALT/SGPT) 19 Alkaline Phosphatase 70 Total Protein 7.0 # Albumin 3.6 Globulin 3.40 H Albumin/Globulin Ratio 1.05 Triglycerides Level 101 Cholesterol Level 175 LDL Cholesterol, Calculated 121 HDL Cholesterol 34 Cholesterol/HDL Ratio 5.1 Thyroid Stimulating Hormone (TSH) 1.150 Free Thyroxine Index 3.26 Thyroxine (T4) 7.5 Triiodothyronine (T3) Uptake 43.5 H Test 09/04/16 11:10 Bedside Glucose 148 Medications Medications Current Medications Calcitriol (Rocaltrol) 0.25 mcg DAILY PO Last administered on 09/04/16 08:46; Admin Dose 0.25 MCG; Start 09/04/16 at 09:00 Carvedilol (Coreg) 25 mg BID PO Last administered on 09/04/16 08:50; Admin Dose 25 MG; Start 09/03/16 at 21:00 Docusate Sodium (Colace) 100 mg BID PO Last administered on 09/04/16 08:46; Admin Dose 100 MG; Start 09/03/16 at 21:00 Ferrous Sulfate (Ferrous Sulfate (Ec)) 325 mg BID PO Last administered on 09:01; Admin Dose 325 MG; Start 09/03/16 at 21:00 Finasteride (Proscar) 5 mg DAILY PO Last administered on 09/04/16 08:46; Admin Dose 5 MG; Start 09/04/16 at 09:00 Gabapentin (Neurontin) 300 mg QHS PO Last administered on 09/03/16 20:43; Admin Dose 300 MG; Start 09/03/16 at 21:00 Insulin Glargine (Lantus) 40 unit HS SC Last administered on 09/03/16 20:45; Admin Dose 40 UNIT; Start 09/03/16 at 21:00 Isosorbide Mononitrate (Imdur) 30 mg DAILY PO Last administered on 09/04/16 08: 47; Admin Dose 30 MG; Start 09/04/16 at 09:00 Nitroglycerin (Nitroglycerin (Sl Tab) 0.4 Mg) 1 tab [id number] PRN SL CHEST PAIN ; Start 09/03/16 at 13:30 Tamsulosin HCl (Flomax) 0.4 mg HS PO Last administered on 09/03/16 20:43; Admin Dose 0.4 MG; Start 09/03/16 at 21:00 Ticagrelor (Brilinta) 90 mg Q12 PO Last administered on 09/04/16 08:49; Admin Dose 90 MG; Start 09/03/16 at 21:00 Ondansetron HCl (Zofran Inj) 4 mg Q6H PRN IV NAUSEA AND/OR VOMITING; Start 09/03 at 13:30 Acetaminophen (Tylenol Tab) 650 mg Q6H PRN PO PAIN LEVEL 1-3 OR FEVER; Start at 13:30 Acetaminophen (Tylenol Supp) 650 mg Q6H PRN IN PAIN LEVEL 1-3 OR FEVER; Start 09/03/16 at 13:30 Acetaminophen/ Hydrocodone Bitart (Byron (5/325)) 1 tab Q6H PRN PO MODERATE PAIN LEVEL 4-6; Start 09/03/16 at 13:30 Acetaminophen/ Hydrocodone Bitart (Byron (5/325)) 2 tab Q6H PRN PO SEVERE PAIN LEVEL 7-10; Start 09/03/16 at 13:30 Morphine Sulfate (morphine) 2 mg Q4H PRN IV SEVERE PAIN LEVEL 7-10; Start at 13:30 Docusate Sodium (Colace) 100 mg Q12H PRN PO CONSTIPATION; Start 09/03/16 at 13: 30 Magnesium Hydroxide (Milk Of Mag) 30 ml DAILY PRN PO CONSTIPATION; Start at 13:30 Bisacodyl (Dulcolax Supp) 10 mg DAILY PRN IN CONSTIPATION; Start 09/03/16 at 13: 30 Pantoprazole (Protonix Iv) 40 mg DAILY@06 IV Last administered on 09/04/16 05: 26; Admin Dose 40 MG; Start 4/2/17 at 06:00 Diagnostic Test (Pha) 1 ea 1 ea 02 XX ; Start 09/04/16 at 02:00 Vancomycin HCl/ Sodium Chloride (Vancocin/NS) 500 ml @ 125 mls/hr Q48H IVPB Last administered on 09/04/16t 08:46; Admin Dose 125 MLS/HR; Start 09/04/16 at 08: 00 VALERIE REYES Sep 04, 2016 15:22
--- NOTE | 2016-09-04 16:22 | CONS ---
Date/Time of Note Date/Time of Note DATE: 09/04/16 TIME: 16:02 Assessment/Plan Assessment/Plan Chief Complaint/Hosp Course Assessment: Acute decompensated systolic heart failure Cardiomyopathy, LVEF 20-25% - likely combination of ischemic and valvular etiologies Severe aortic stenosis Coronary artery disease - history of multiple myocardial infarctions and coronary stents, most recently to the left anterior descending artery ( February 2016, [facility]) Hypertension Dyslipidemia Diabetes mellitus, insulin-dependent Chronic kidney disease Benign prostate hyperplasia Peripheral vascular disease - status post bilateral lower extremity bypass surgery Carotid stenosis - bilateral 50-69% on carotid Doppler January 2015 History of stroke Aspirin allergy - patient reports severe reaction with airway compromise Recommendations: -complex and difficult situation -patient reports being previously determined not to be a candidate for coronary artery bypass graft surgery due to lack of venous grafts -patient not a candidate for percutaneous coronary intervention due to severe aspirin allergy -without option for coronary revascularization, patient is not a candidate for aortic valve replacement -only option is for medical management, consider hospice evaluation -continue diuresis with Lasix 40mg IV daily - cautious in setting of severe aortic stenosis -continue carvedilol 25mg BID an Imdur 30mg daily -continue ticagrelor 90mg BID -continue atorvastatin 80mg daily Problems: Consultation Date/Type/Reason Admit Date/Time Sep 03, 2016 at 11:10 Type of Consultation: Cardiology Reason for Consultation congestive heart failure Hx of Present Illness The patient is a 71 year-old male who presents with a two-day history of worsening shortness of breath. Chest x-ray shows pulmonary edema and BNP is elevated at 6460, consistent with decompensated heart failure. He denies chest pain. His troponins have been negative. He has a history of coronary artery disease and multiple myocardial infarctions. He was previously recommended to have coronary artery bypass graft surgery, but the patient reports having been evaluated at [facility] and determined not to be a candidate for surgical revascularization due to lack of suitable venous grafts. He has had multiple coronary stent implantations, most recently to the left anterior descending artery in February 2016 at [facility]. However, the patient does report having a severe aspirin allergy with airway compromise, so he is only on ticagrelor. 14 point review of systems negative other than per HPI. Past Medical History Coronary artery disease - history of multiple myocardial infarctions and coronary stents, most recently to the left anterior descending artery ( February 2016, [facility]) Hypertension Dyslipidemia Diabetes mellitus, insulin-dependent Chronic kidney disease Benign prostate hyperplasia Peripheral vascular disease - status post bilateral lower extremity bypass surgery Carotid stenosis - bilateral 50-69% on carotid Doppler January 2015 History of stroke Past Surgical History Past Surgical Hx: appendectomy, other (bilateral lower extremity bypass surgery , right great toe amputation) Social History Alcohol Use: none Smoking Status: Former smoker (quit over 20 years ago) Drug Use: none Exam/Review of Systems Vital Signs Vitals Vital Signs Date Time Temp Pulse Resp B/P Pulse Ox O2 Delivery O2 Flow Rate FiO2 09/04/16 16:01 65 09/04/16 11:41 97.9 19 124/60 96 09/04/16 08:23 3.0 09/04/16 08:00 Nasal Cannula 09/03/16 12:48 35 Intake and Output 09/03/16 09/03/16 09/04/16 15:00 23:00 07:00 Intake Total 240 ml Output Total 850 ml Balance -610 ml Exam Constitutional: alert, well developed Psych: nl mood/affect, no complaints Head: atraumatic, normocephalic Eyes: nl conjunctiva, nl lids ENMT: nl external ears & nose, nl nasal mucosa & septum Neck: non-tender, supple Respiratory: diminished breath sounds, No wheezing Cardiovascular: regular rate and rhythm, systolic murmur Gastrointestinal: non-tender, soft Musculoskeletal: nl extremities to inspection Extremities: No clubbing, No cyanosis, No edema Neurological: nl mental status, nl speech Results Result Diagram: 09/04/16 0650 09/04/16 0650 Results 24 hrs Laboratory Tests Test 09/03/16 17:18 09/03/16 19:20 09/03/16 20:12 09/04/16 01:10 Bedside Glucose 255 H 252 H Creatine Kinase 32 Creatine Kinase Index 3.3 Creatinine Kinase MB (Mass) 1.07 Troponin I 0.030 Urine Color LT. YELLOW Urine Clarity CLEAR Urine pH 5.0 Urine Specific [place] 1.015 Urine Ketones NEGATIVE Urine Nitrite NEGATIVE Urine Bilirubin NEGATIVE Urine Urobilinogen 0.2 E.U./dL Urine Leukocyte Esterase NEGATIVE Urine Microscopic RBC 5-10 Urine Microscopic WBC 0-2 Urine Squamous Epithelial Cells FEW Urine Hemoglobin TRACE Urine Random Creatinine 58.26 Urine Random Sodium 40 Urine Glucose 0.1% H Urine Total Protein 22.0 H Test 09/04/16 02:01 09/04/16 05:00 09/04/16 06:50 09/04/16 07:39 Bedside Glucose 217 158 Blood Gas Specimen Source Blood arterial Arterial Blood Date Drawn 09/04/2016 4:23:08 AM Arterial Blood pH (Temp corrected) 7.445 Arterial Blood pCO2 (Temp correct) 33.8 L Arterial Blood pO2 (Temp corrected) 94.3 H Arterial Blood HCO3 22.7 Arterial Blood Base Excess -0.8 Arterial Blood Oxygen Saturation 97.0 Jack Test ACCEPTAB Arterial Blood Gas Puncture Site Right Radial Arterial Blood Carboxyhemoglobin 0.3 Arterial Blood Methemoglobin 0.4 Blood Gas A-a O2 Differential 79.9 H Oxyhemoglobin Percent 96.3 Total Hemoglobin 11.8 L Blood Gas Temperature 37.0 Blood Gas Modality NASAL CANNULA FiO2 30.0 Blood Gas Notified Whom LW Blood Gas Notified Time 09/04/2016 4:33:37 AM White Blood Count 14.5 #H Red Blood Count 3.94 L Hemoglobin 10.9 L Hematocrit 34.0 L Mean Corpuscular Volume 86.3 Mean Corpuscular Hemoglobin 27.7 L Mean Corpuscular Hemoglobin Concent 32.1 Red Cell Distribution Width 14.8 H Platelet Count 220 Mean Platelet Volume 11.7 H Neutrophils % 83.8 H Lymphocytes % 9.6 L Monocytes % 5.9 Eosinophils % 0.1 Basophils % 0.1 Nucleated Red Blood Cells % 0.0 Neutrophils # 12.2 H Lymphocytes # 1.4 Monocytes # 0.9 Eosinophils # 0.0 Basophils # 0.0 Nucleated Red Blood Cells # 0.0 Sodium Level 141 Potassium Level 3.6 Chloride Level 107 Carbon Dioxide Level 26 Anion Gap 12 Blood Urea Nitrogen 49 H Creatinine 2.33 H Glucose Level 166 Hemoglobin A1c 9.4 H Calcium Level 8.7 Phosphorus Level 4.4 Magnesium Level 2.1 Total Bilirubin 0.4 Direct Bilirubin 0.00 Indirect Bilirubin 0.4 Aspartate Amino Transf (AST/SGOT) 15 Alanine Aminotransferase (ALT/SGPT) 19 Alkaline Phosphatase 70 Total Protein 7.0 # Albumin 3.6 Globulin 3.40 H Albumin/Globulin Ratio 1.05 Triglycerides Level 101 Cholesterol Level 175 LDL Cholesterol, Calculated 121 HDL Cholesterol 34 Cholesterol/HDL Ratio 5.1 Thyroid Stimulating Hormone (TSH) 1.150 Free Thyroxine Index 3.26 Thyroxine (T4) 7.5 Triiodothyronine (T3) Uptake 43.5 H Test 09/04/16 11:10 Bedside Glucose 148 Medications Medications Current Medications Calcitriol (Rocaltrol) 0.25 mcg DAILY PO Last administered on 09/04/16 08:46; Admin Dose 0.25 MCG; Start 09/04/16 at 09:00 Carvedilol (Coreg) 25 mg BID PO Last administered on 09/04/16 08:50; Admin Dose 25 MG; Start 09/03/16 at 21:00 Docusate Sodium (Colace) 100 mg BID PO Last administered on 09/04/16 08:46; Admin Dose 100 MG; Start 09/03/16 at 21:00 Ferrous Sulfate (Ferrous Sulfate (Ec)) 325 mg BID PO Last administered on 09:01; Admin Dose 325 MG; Start 09/03/16 at 21:00 Finasteride (Proscar) 5 mg DAILY PO Last administered on 09/04/16 08:46; Admin Dose 5 MG; Start 09/04/16 at 09:00 Gabapentin (Neurontin) 300 mg QHS PO Last administered on 09/03/16 20:43; Admin Dose 300 MG; Start 09/03/16 at 21:00 Insulin Glargine (Lantus) 40 unit HS SC Last administered on 09/03/16 20:45; Admin Dose 40 UNIT; Start 09/03/16 at 21:00 Isosorbide Mononitrate (Imdur) 30 mg DAILY PO Last administered on 09/04/16 08: 47; Admin Dose 30 MG; Start 09/04/16 at 09:00 Nitroglycerin (Nitroglycerin (Sl Tab) 0.4 Mg) 1 tab [id number] PRN SL CHEST PAIN ; Start 09/03/16 at 13:30 Tamsulosin HCl (Flomax) 0.4 mg HS PO Last administered on 09/03/16 20:43; Admin Dose 0.4 MG; Start 09/03/16 at 21:00 Ticagrelor (Brilinta) 90 mg Q12 PO Last administered on 09/04/16 08:49; Admin Dose 90 MG; Start 09/03/16 at 21:00 Ondansetron HCl (Zofran Inj) 4 mg Q6H PRN IV NAUSEA AND/OR VOMITING; Start 09/03 at 13:30 Acetaminophen (Tylenol Tab) 650 mg Q6H PRN PO PAIN LEVEL 1-3 OR FEVER; Start at 13:30 Acetaminophen (Tylenol Supp) 650 mg Q6H PRN [place] PAIN LEVEL 1-3 OR FEVER; Start 09/03/16 at 13:30 Acetaminophen/ Hydrocodone Bitart ([place] (5/325)) 1 tab Q6H PRN PO MODERATE PAIN LEVEL 4-6; Start 09/03/16 at 13:30 Acetaminophen/ Hydrocodone Bitart ([place] (5/325)) 2 tab Q6H PRN PO SEVERE PAIN LEVEL 7-10; Start 09/03/16 at 13:30 Morphine Sulfate (morphine) 2 mg Q4H PRN IV SEVERE PAIN LEVEL 7-10; Start at 13:30 Docusate Sodium (Colace) 100 mg Q12H PRN PO CONSTIPATION; Start 09/03/16 at 13: 30 Magnesium Hydroxide (Milk Of Mag) 30 ml DAILY PRN PO CONSTIPATION; Start at 13:30 Bisacodyl (Dulcolax Supp) 10 mg DAILY PRN [place] CONSTIPATION; Start 09/03/16 at 13: 30 Pantoprazole (Protonix Iv) 40 mg DAILY@06 IV Last administered on 09/04/16 05: 26; Admin Dose 40 MG; Start 09/04/16 at 06:00 Diagnostic Test (Pha) 1 ea 1 ea 02 XX ; Start 09/04/16 at 02:00 Vancomycin HCl/ Sodium Chloride (Vancocin/NS) 500 ml @ 125 mls/hr Q48H IVPB Last administered on 09/04/16 08:46; Admin Dose 125 MLS/HR; Start 09/04/16 at 08: 00 Heparin Sodium (Porcine) (Heparin (5000 Units/0.5 ml)) 5,000 unit BID SC ; Start 09/04/16 at 21:00 MELONY BRITO MD Sep 04, 2016 16:13
[2016-09-04] MEDS: GABAPENTIN 300 MG CAP PO SCH (20:34)
[2016-09-04] MEDS: TAMSULOSIN (SR) 0.4 MG CAP PO SCH (20:36)
[2016-09-04] MEDS: ATORVASTATIN 80 MG TAB PO SCH (20:36)
[2016-09-04] MEDS: INSULIN GLARGINE [LANtus] 3 ML PEN SC SCH (20:38)
[2016-09-04] MEDS: HEPARIN 5,000 UNIT/0.5 ML SYG SC SCH (20:38)
[2016-09-05] VITALS (12 sets, daily range): BP systolic 120–137; BP diastolic 60–65; PULSE 63–69; RESP 16–20
[2016-09-05] MEDS ORDERED: IMIPENEM-CILAST 500MG IV (PMX) 100 ML IVPB SCH
[2016-09-05] MEDS: ACCU-CHEK XX SCH (02:00)
[2016-09-05] MEDS: IMIPENEM-CILAST 250MG IV (PMX) 100 ML IVPB SCH ×2 (02:03→05:41)
[2016-09-05] MEDS: PANTOPRAZOLE 40 MG INJ IV SCH (05:42)
[2016-09-05] MEDS: FUROSEMIDE 40 MG INJ IV SCH (05:42)
[2016-09-05 06:33] LABS: ADD SCAN DIFF NO
[2016-09-05 06:39] LABS: BASOPHILS % 0.3 % (0.0-2.0); EOSINOPHILS # 0.2 10^3/ul (0.0-0.5); EOSINOPHILS % 1.9 % (0.0-7.0); HEMATOCRIT 35.3 % (42.0-52.0); HEMOGLOBIN 11.1 g/dl (14.0-18.0); LYMPHOCYTES # 2.1 10^3/ul (0.8-2.9); MEAN CORPUSCULAR HEMOGLOBIN 27.7 pg (29.0-33.0); MEAN CORPUSCULAR HGB CONC 31.4 g/dl (32.0-37.0); MEAN PLATELET VOLUME 11.3 fl (7.4-10.4); MONOCYTE # 0.7 10^3/ul (0.3-0.9); MONOCYTES % 5.9 % (0.0-11.0); NEUTROPHIL # 9.2 10^3/ul (1.6-7.5); NEUTROPHILS % 74.6 % (39.0-77.0); PLATELET COUNT 224 10^3/UL (140-415); RED BLOOD COUNT 4.01 10^6/ul (4.70-6.10); RED CELL DISTRIBUTION WIDTH 14.8 % (11.5-14.5); WHITE BLOOD COUNT 12.4 10^3/ul (4.8-10.8)
[2016-09-05 06:53] LABS: POTASSIUM 3.5 mmol/L (3.5-5.1)
[2016-09-05 06:55] LABS: CREATININE 2.35 mg/dl (0.61-1.24)
[2016-09-05 06:56] LABS: CALCIUM 8.6 mg/dl (8.4-10.2); MAGNESIUM 2.2 mg/dl (1.7-2.5); PHOSPHORUS 4.1 mg/dl (2.5-4.9)
[2016-09-05] MEDS ORDERED: GLUCOSE GEL 15 GRAM TUBE PO PRN ×2 (07:00)
[2016-09-05] MEDS ORDERED: GLUCAGON 1 MG INJ IM PRN (07:00)
[2016-09-05] MEDS ORDERED: DEXTROSE 50% 50 ML SYRINGE IV PRN ×2 (07:00)
[2016-09-05] MEDS ORDERED: GLUCOSE GEL 15 GRAM TUBE BUCCAL PRN (07:00)
[2016-09-05] MEDS: INSULIN ASPART [NOVOLOG] 3 ML PEN SC SCH ×7 (08:00→22:47)
[2016-09-05] MEDS: HEPARIN 5,000 UNIT/0.5 ML SYG SC SCH ×2 (09:32→22:45)
[2016-09-05] MEDS: FINASTERIDE 5 MG TAB PO SCH (09:32)
[2016-09-05] MEDS: TICAGRELOR 90 MG TABLET PO SCH ×2 (09:33→22:44)
[2016-09-05] MEDS: DOCUSATE SODIUM 100 MG CAP PO SCH ×2 (09:33→22:25)
[2016-09-05] MEDS: ISOSORBIDE MONONITRATE(SR)30 MG TAB PO SCH (09:33)
[2016-09-05] MEDS: FERROUS SULFATE (EC) 325 MG TAB PO SCH ×2 (09:33→21:00)
[2016-09-05] MEDS: CALCITRIOL 0.25 MCG CAP PO SCH (09:33)
--- NOTE | 2016-09-05 12:01 | PN ---
DATE: SUBJECTIVE: The patient is stable, no acute events overnight. No fevers, chills, nausea, vomiting. OBJECTIVE: VITAL SIGNS: Blood pressure 137/65, respiration is 17, pulse 66, temperature 99.0. HEENT: Head is normocephalic. NECK: Supple. HEART: Regular rate. LUNGS: Show diminished breath sounds at the base. ABDOMEN: Soft, nontender to palpation. No rebound or guarding. EXTREMITIES: Negative for clubbing, cyanosis, no edema. DERMATOLOGIC: No rashes. MUSCULOSKELETAL: No joint effusions. NEUROLOGIC: No change in exam. MEDICATIONS: The patient's medications have been reviewed. LABORATORY DATA: Shows sodium 142, potassium 3.5, BUN 50, creatinine 2.35. White count 10.4, hemog lobin 11.1, hematocrit 35.2, platelet count 224. ASSESSMENT AND PLAN: 1. Chronic kidney disease stage IV with a baseline EGFR around 20 to 25 mL per minute. The patient 's renal function is currently at baseline. At this point, continue current treatment plan. Contin ue diuretic therapy. Continue supportive care, renally dose all meds, monitor renal function closel y. 2. Acute congestive heart failure exacerbation, systolic and diastolic. The patient is clinically improving. Continue current diuretic regimen. 3. Anemia of chronic disease. Continue to monitor H and H levels. 4. Mineral bone disorder. Continue to monitor calcium and phosphorus levels. No need for phosphate binders. Continue vitamin D analogs. 5. History of coronary artery disease, status post coronary artery bypass graft. Continue medical management. 6. Acute respiratory failure. Etiology is secondary to congestive heart failure exacerbation, clin ically improving. Continue medical management. 7. Diabetes. Continue Accu-Cheks and sliding scale. 8. Benign prostatic hypertrophy. Continue Proscar and Flomax. 9. History of chronic obstructive pulmonary disease. Continue current medical management. 10. History of sleep apnea. Continue CPAP. Dictated By: MARTIN GAO/BEVERLY Conf#: [id number] DID#: [id number]
--- NOTE | 2016-09-05 12:38 | PN ---
Date/Time of Note Date/Time of Note DATE: 09/05/16 TIME: 12:26 Assessment/Plan VTE Prophylaxis VTE Prophylaxis Intervention: heparin Lines/Catheters IV Catheter Type (from Nrsg): Peripheral IV Urinary Cath still in place: No Assessment/Plan Assessment/Plan 1. Congestive heart failure, systolic, acute on chronic, LVEF 20-25%, on iv lasix 2. Ischemic cardiomyopathy, follow up with cardiology 3. Coronary artery disease, s/p PCI/stents, reported not a candidate for CABG, medical management 4. Severe aortic stenosis 5. Hypertension, controlled 6. Dyslipidemia, on lipitor 7. Diabetes mellitus, with vascular and renal manifestation, on insulin 8. Chronic kidney disease, stage 4, follow up with nephrology 9. Benign prostate hyperplasia, on flomax and proscar 10. Peripheral vascular disease - status post bilateral lower extremity bypass surgery 11. Carotid stenosis - bilateral 50-69% on carotid Doppler January 2015 12. History of stroke 13. Aspirin allergy - patient reports severe reaction with airway compromise 14. Sleep apnea 15. DVT prophylaxis: heparin Subjective 24 Hr Interval Summary Free Text/Dictation better on shortness of breath afebrile Exam/Review of Systems Vital Signs Vitals Vital Signs Date Time Temp Pulse Resp B/P Pulse Ox O2 Delivery O2 Flow Rate FiO2 09/05/16 12:02 64 09/05/16 11:54 98.1 18 130/61 99 09/05/16 08:15 Nasal Cannula 2.0 09/03/16 12:48 35 Intake and Output 09/04/16 09/04/16 09/05/16 15:00 23:00 07:00 Intake Total 500 ml 600 ml 600 ml Output Total 600 ml 1200 ml Balance 500 ml 0 ml -600 ml Exam Constitutional: alert, oriented, well developed Psych: nl mood/affect, no complaints Head: atraumatic, normocephalic Eyes: EOMI, PERRL, nl conjunctiva, nl lids ENMT: nl external ears & nose, nl lips & teeth, nl nasal mucosa & septum Neck: non-tender, supple Respiratory: clear to auscultation, normal air movement, No congested cough, No crackles/rales, No diminished breath sounds, No intercostal retraction, No labored breathing, No other, No respirations, No tactile fremitus, No wheezing Cardiovascular: nl pulses, regular rate and rhythm, systolic murmur, No S3, No S4, No bruits, No diastolic murmur, No edema, No gallop, No irregular rhythm, No jugular venous distention (JVD), No murmurs/extra sounds, No other, No rub Gastrointestinal: nl liver, spleen, non-tender, soft, No ascites, No bowel sounds, No distended, No firm, No hepatomegaly, No mass , No other, No rebound or guarding, No splenomegaly, No surgical scars, No tender Musculoskeletal: nl extremities to inspection Extremities: normal pulses, No calf tenderness, No clubbing, No cyanosis, No edema, No other, No palpable cord, No pitting pedal edema, No tenderness Neurological: COMPARATOR OPERATOR II-XII intact, nl mental status, nl speech, nl strength Skin: nl turgor Lymph: nl lymph nodes Results Result Diagram: 09/05/1660409/05/16604 Results 24 hrs Laboratory Tests Test 09/04/16 17:18 09/04/16 20:33 09/05/16 02:08 09/05/16 06:05 Bedside Glucose 148 150 155 White Blood Count 12.4 H Red Blood Count 4.01 L Hemoglobin 11.1 L Hematocrit 35.3 L Mean Corpuscular Volume 88.0 Mean Corpuscular Hemoglobin 27.7 L Mean Corpuscular Hemoglobin Concent 31.4 L Red Cell Distribution Width 14.8 H Platelet Count 224 Mean Platelet Volume 11.3 H Neutrophils % 74.6 Lymphocytes % 17.0 Monocytes % 5.9 Eosinophils % 1.9 Basophils % 0.3 Nucleated Red Blood Cells % 0.0 Neutrophils # 9.2 H Lymphocytes # 2.1 Monocytes # 0.7 Eosinophils # 0.2 Basophils # 0.0 Nucleated Red Blood Cells # 0.0 Sodium Level 142 Potassium Level 3.5 Chloride Level 105 Carbon Dioxide Level 28 Anion Gap 13 Blood Urea Nitrogen 50 H Creatinine 2.35 H Glucose Level 133 Calcium Level 8.6 Phosphorus Level 4.1 Magnesium Level 2.2 Test 09/05/16 07:53 09/05/16 11:19 Bedside Glucose 135 168 Medications Medications Current Medications Calcitriol (Rocaltrol) 0.25 mcg DAILY PO Last administered on 09/05/16t 09:33; Admin Dose 0.25 MCG; Start 09/04/16 at 09:00 Carvedilol (Coreg) 25 mg BID PO Last administered on 09/05/16 09:33; Admin Dose 25 MG; Start 09/03/16 at 21:00 Docusate Sodium (Colace) 100 mg BID PO Last administered on 09/05/16 09:33; Admin Dose 100 MG; Start 09/03/16 at 21:00 Ferrous Sulfate (Ferrous Sulfate (Ec)) 325 mg BID PO Last administered on 09:33; Admin Dose 325 MG; Start 09/03/16 at 21:00 Finasteride (Proscar) 5 mg DAILY PO Last administered on 09/05/16 09:32; Admin Dose 5 MG; Start 09/04/16 at 09:00 Gabapentin (Neurontin) 300 mg QHS PO Last administered on 09/04/16 20:34; Admin Dose 300 MG; Start 09/03/16 at 21:00 Insulin Glargine (Lantus) 40 unit HS SC Last administered on 09/04/16 20:38; Admin Dose 40 UNIT; Start 09/03/16 at 21:00 Isosorbide Mononitrate (Imdur) 30 mg DAILY PO Last administered on 09/05/16 09: 33; Admin Dose 30 MG; Start 09/04/16 at 09:00 Nitroglycerin (Nitroglycerin (Sl Tab) 0.4 Mg) 1 tab [id number] PRN SL CHEST PAIN ; Start 09/03/16 at 13:30 Tamsulosin HCl (Flomax) 0.4 mg HS PO Last administered on 09/04/16 20:36; Admin Dose 0.4 MG; Start 09/03/16 at 21:00 Ticagrelor (Brilinta) 90 mg Q12 PO Last administered on 09/05/16 09:33; Admin Dose 90 MG; Start 09/03/16 at 21:00 Ondansetron HCl (Zofran Inj) 4 mg Q6H PRN IV NAUSEA AND/OR VOMITING; Start 09/03 at 13:30 Acetaminophen (Tylenol Tab) 650 mg Q6H PRN PO PAIN LEVEL 1-3 OR FEVER; Start at 13:30 Acetaminophen (Tylenol Supp) 650 mg Q6H PRN [place] PAIN LEVEL 1-3 OR FEVER; Start 09/03/16 at 13:30 Acetaminophen/ Hydrocodone Bitart ([place] (5/325)) 1 tab Q6H PRN PO MODERATE PAIN LEVEL 4-6; Start 09/03/16 at 13:30 Acetaminophen/ Hydrocodone Bitart ([place] (5/325)) 2 tab Q6H PRN PO SEVERE PAIN LEVEL 7-10; Start 09/03/16 at 13:30 Morphine Sulfate (morphine) 2 mg Q4H PRN IV SEVERE PAIN LEVEL 7-10; Start at 13:30 Docusate Sodium (Colace) 100 mg Q12H PRN PO CONSTIPATION; Start 09/03/16 at 13: 30 Magnesium Hydroxide (Milk Of Mag) 30 ml DAILY PRN PO CONSTIPATION; Start at 13:30 Bisacodyl (Dulcolax Supp) 10 mg DAILY PRN [place] CONSTIPATION; Start 09/03/16 at 13: 30 Pantoprazole (Protonix Iv) 40 mg DAILY@06 IV Last administered on 09/05/16 05: 42; Admin Dose 40 MG; Start 09/04/16 at 06:00 Diagnostic Test (Pha) 1 ea 1 ea 02 XX ; Start 09/04/16 at 02:00 Vancomycin HCl/ Sodium Chloride (Vancocin/NS) 500 ml @ 125 mls/hr Q48H IVPB Last administered on 09/04/16 08:46; Admin Dose 125 MLS/HR; Start 09/04/16 at 08: 00 Heparin Sodium (Porcine) (Heparin (5000 Units/0.5 ml)) 5,000 unit BID SC Last administered on 09/05/16 09:32; Admin Dose 5,000 UNIT; Start 09/04/16 at 21:00 Furosemide (Lasix) 40 mg DAILY@06 IV Last administered on 09/05/16 05:42; Admin Dose 40 MG; Start 09/05/16 at 06:00 Atorvastatin Calcium (Lipitor) 80 mg HS PO Last administered on 09/04/16 20:36 ; Admin Dose 80 MG; Start 09/04/16 at 21:00 Miscellaneous Information 1 ea NOTE XX ; Start 09/05/16 at 07:00 Glucose (Glutose) 15 gm Q15M PRN PO DECREASED GLUCOSE; Start 09/05/16 at 07:00 Glucose (Glutose) 22.5 gm Q15M PRN PO DECREASED GLUCOSE; Start 09/05/16 at 07:00 Dextrose (D50w Syringe) 25 ml Q15M PRN IV DECREASED GLUCOSE; Start 09/05/16 at 07:00 Dextrose (D50w Syringe) 50 ml Q15M PRN IV DECREASED GLUCOSE; Start 09/05/16 at 07:00 Glucagon (Glucagen) 1 mg Q15M PRN IM DECREASED GLUCOSE; Start 09/05/16 at 07:00 Glucose 15 gm 15 gm Q15M PRN [place]CCAL DECREASED GLUCOSE; Start 09/05/16 at 07:00 Imipenem/ Cilastatin Sodium (Primaxin 250 Mg/ 100 ml (Pmx)) 100 ml @ 100 mls/ hr Q8 IVPB ; Start 09/05/16 at 14:00 TACOS ELAINE MD Sep 05, 2016 12:37
[2016-09-05] MEDS ORDERED: IMIPENEM-CILAST 250MG IV (PMX) 100 ML IVPB SCH (14:00)
--- NOTE | 2016-09-05 14:04 | CONS ---
Date/Time of Note Date/Time of Note DATE: 09/05/16 TIME: 14:02 Assessment/Plan Assessment/Plan Additional Assessment/Plan Assessment recommendations; next 1. Patient admitted for CHF with decompensation clinically improved. 2. Diabetes. 3. Chronic renal insufficiency. 4. BPH. 5. Hyperlipidemia. 6. Diabetes. 7. Gram-positive bacteremia. Continue current treatment. Patient responding well to current treatment regimen. Consultation Date/Type/Reason Admit Date/Time Sep 03, 2016 at 11:10 Initial Consult Date Type of Consultation: Pulmonary 24 HR Interval Summary Free Text/Dictation Patient condition is stable. Denies any shortness of breath, chest pain, wheezing, sputum production. Any fever chills. General exam; elderly male, currently in no distress, awake and alert. Exam/Review of Systems Vital Signs Vitals Vital Signs Date Time Temp Pulse Resp B/P Pulse Ox O2 Delivery O2 Flow Rate FiO2 09/05/16 12:02 64 09/05/16 11:54 98.1 18 130/61 99 09/05/16 08:15 Nasal Cannula 2.0 09/03/16 12:48 35 Intake and Output 09/04/16 09/04/16 09/05/16 15:00 23:00 07:00 Intake Total 500 ml 600 ml 600 ml Output Total 600 ml 1200 ml Balance 500 ml 0 ml -600 ml Exam HEENT exam is; supple neck, no JVD. No lymphadenopathy. Midline trachea. No thyromegaly. Pharynx is clear. Patient has dentures. Pupils are small bilaterally. Chest examination; diminished but clear breath sounds bilaterally. S1-S2 audible, no murmurs. Regular rhythm. Abdomen examination; soft, no organomegaly. Bowel sounds audible. Extremity exam is; no peripheral edema. Pulses 1+ bilaterally. There is no clubbing. VIDEO TAPE DUPLICATOR examination; no focal deficit. Results Result Diagram: 09/05/16 0605 09/05/16 0605 Results 24 hrs Laboratory Tests Test 09/04/16 17:18 09/04/16 20:33 09/05/16 02:08 09/05/16 06:05 Bedside Glucose 148 150 155 White Blood Count 12.4 H Red Blood Count 4.01 L Hemoglobin 11.1 L Hematocrit 35.3 L Mean Corpuscular Volume 88.0 Mean Corpuscular Hemoglobin 27.7 L Mean Corpuscular Hemoglobin Concent 31.4 L Red Cell Distribution Width 14.8 H Platelet Count 224 Mean Platelet Volume 11.3 H Neutrophils % 74.6 Lymphocytes % 17.0 Monocytes % 5.9 Eosinophils % 1.9 Basophils % 0.3 Nucleated Red Blood Cells % 0.0 Neutrophils # 9.2 H Lymphocytes # 2.1 Monocytes # 0.7 Eosinophils # 0.2 Basophils # 0.0 Nucleated Red Blood Cells # 0.0 Sodium Level 142 Potassium Level 3.5 Chloride Level 105 Carbon Dioxide Level 28 Anion Gap 13 Blood Urea Nitrogen 50 H Creatinine 2.35 H Glucose Level 133 Calcium Level 8.6 Phosphorus Level 4.1 Magnesium Level 2.2 Test 09/05/16 07:53 09/05/16 11:19 Bedside Glucose 135 168 Medications Medications Current Medications Calcitriol (Rocaltrol) 0.25 mcg DAILY PO Last administered on 09/05/16 09:33; Admin Dose 0.25 MCG; Start 09/04/16 at 09:00 Carvedilol (Coreg) 25 mg BID PO Last administered on 09/05/16 09:33; Admin Dose 25 MG; Start 09/03/16 at 21:00 Docusate Sodium (Colace) 100 mg BID PO Last administered on 09/05/16 09:33; Admin Dose 100 MG; Start 09/03/16 at 21:00 Ferrous Sulfate (Ferrous Sulfate (Ec)) 325 mg BID PO Last administered on 09:33; Admin Dose 325 MG; Start 09/03/16 at 21:00 Finasteride (Proscar) 5 mg DAILY PO Last administered on 09/05/16 09:32; Admin Dose 5 MG; Start 09/04/16 at 09:00 Gabapentin (Neurontin) 300 mg QHS PO Last administered on 09/04/16 20:34; Admin Dose 300 MG; Start 09/03/16 at 21:00 Insulin Glargine (Lantus) 40 unit HS SC Last administered on 09/04/16 20:38; Admin Dose 40 UNIT; Start 09/03/16 at 21:00 Isosorbide Mononitrate (Imdur) 30 mg DAILY PO Last administered on 09/05/16 09: 33; Admin Dose 30 MG; Start 09/04/16 at 09:00 Nitroglycerin (Nitroglycerin (Sl Tab) 0.4 Mg) 1 tab [id number] PRN SL CHEST PAIN ; Start 09/03/16 at 13:30 Tamsulosin HCl (Flomax) 0.4 mg HS PO Last administered on 09/04/16 20:36; Admin Dose 0.4 MG; Start 09/03/16 at 21:00 Ticagrelor (Brilinta) 90 mg Q12 PO Last administered on 09/05/16 09:33; Admin Dose 90 MG; Start 09/03/16 at 21:00 Ondansetron HCl (Zofran Inj) 4 mg Q6H PRN IV NAUSEA AND/OR VOMITING; Start 09/03 at 13:30 Acetaminophen (Tylenol Tab) 650 mg Q6H PRN PO PAIN LEVEL 1-3 OR FEVER; Start at 13:30 Acetaminophen (Tylenol Supp) 650 mg Q6H PRN [place] PAIN LEVEL 1-3 OR FEVER; Start 09/03/16 at 13:30 Acetaminophen/ Hydrocodone Bitart ([place] (5/325)) 1 tab Q6H PRN PO MODERATE PAIN LEVEL 4-6; Start 09/03/16 at 13:30 Acetaminophen/ Hydrocodone Bitart ([place] (5/325)) 2 tab Q6H PRN PO SEVERE PAIN LEVEL 7-10; Start 09/03/16 at 13:30 Morphine Sulfate (morphine) 2 mg Q4H PRN IV SEVERE PAIN LEVEL 7-10; Start at 13:30 Docusate Sodium (Colace) 100 mg Q12H PRN PO CONSTIPATION; Start 09/03/16 at 13: 30 Magnesium Hydroxide (Milk Of Mag) 30 ml DAILY PRN PO CONSTIPATION; Start at 13:30 Bisacodyl (Dulcolax Supp) 10 mg DAILY PRN [place] CONSTIPATION; Start 09/03/16 at 13: 30 Diagnostic Test (Pha) 1 ea ea 02 XX ; Start 09/04/16 at 02:00 Vancomycin HCl/ Sodium Chloride (Vancocin/NS) 500 ml @ 125 mls/hr Q48H IVPB Last administered on 09/04/16 08:46; Admin Dose 125 MLS/HR; Start 09/04/16 at 08: 00 Heparin Sodium (Porcine) (Heparin (5000 Units/0.5 ml)) 5,000 unit BID SC Last administered on 09/05/16 09:32; Admin Dose 5,000 UNIT; Start 09/04/16 at 21:00 Furosemide (Lasix) 40 mg DAILY@06 IV Last administered on 09/05/16 05:42; Admin Dose 40 MG; Start 09/05/16 at 06:00 Atorvastatin Calcium (Lipitor) 80 mg HS PO Last administered on 09/04/16 20:36 ; Admin Dose 80 MG; Start 09/04/16 at 21:00 Miscellaneous Information 1 ea NOTE XX ; Start 09/05/16 at 07:00 Glucose (Glutose) 15 gm Q15M PRN PO DECREASED GLUCOSE; Start 09/05/16 at 07:00 Glucose (Glutose) 22.5 gm Q15M PRN PO DECREASED GLUCOSE; Start 09/05/16 at 07:00 Dextrose (D50w Syringe) 25 ml Q15M PRN IV DECREASED GLUCOSE; Start 09/05/16 at 07:00 Dextrose (D50w Syringe) 50 ml Q15M PRN IV DECREASED GLUCOSE; Start 09/05/16 at 07:00 Glucagon (Glucagen) 1 mg Q15M PRN IM DECREASED GLUCOSE; Start 09/05/16 at 07:00 Glucose (Glutose) 15 gm Q15M PRN BUCCAL DECREASED GLUCOSE; Start 09/05/16 at 07: 00 Pantoprazole (Protonix Tab) 40 mg DAILY@06 PO ; Start 09/06/16 at 06:00 VAMSI POLANCO Sep 05, 2016 14:04
--- NOTE | 2016-09-05 16:39 | CONS ---
Date/Time of Note Date/Time of Note DATE: 09/05/16 TIME: 16:37 Assessment/Plan Assessment/Plan Chief Complaint/Hosp Course Assessment: Acute decompensated systolic heart failure - improving with diuresis Cardiomyopathy, LVEF 20-25% - likely combination of ischemic and valvular etiologies Severe aortic stenosis Coronary artery disease - history of multiple myocardial infarctions and coronary stents, most recently to the left anterior descending artery ( February 2016, [facility]) Hypertension Dyslipidemia Diabetes mellitus, insulin-dependent Chronic kidney disease Benign prostate hyperplasia Peripheral vascular disease - status post bilateral lower extremity bypass surgery Carotid stenosis - bilateral 50-69% on carotid Doppler January 2015 History of stroke Aspirin allergy - patient reports severe reaction with airway compromise Gram positive bacteremia - on antibiotics Recommendations: -complex and difficult cardiac situation -patient reports being previously determined not to be a candidate for coronary artery bypass graft surgery due to lack of venous grafts -patient not a candidate for percutaneous coronary intervention due to severe aspirin allergy -without option for coronary revascularization, patient is not a candidate for aortic valve replacement -only option is for medical management, consider hospice evaluation -continue diuresis with Lasix 40mg IV daily - cautious in setting of severe aortic stenosis -continue carvedilol 25mg BID an Imdur 30mg daily -continue ticagrelor 90mg BID -continue atorvastatin 80mg daily Problems: Consultation Date/Type/Reason Admit Date/Time Sep 03, 2016 at 11:10 Initial Consult Date Type of Consultation: Cardiology 24 HR Interval Summary Free Text/Dictation Shortness of breath improving. Blood cultures positive for Staphylococcus species. Detailed Summary Additional Comments 14 point review of systems without changes. Exam/Review of Systems Vital Signs Vitals Vital Signs Date Time Temp Pulse Resp B/P Pulse Ox O2 Delivery O2 Flow Rate FiO2 09/05/16 16:13 63 09/05/16 16:01 98.4 16 120/62 96 09/05/16 08:15 Nasal Cannula 2.0 09/03/16 12:48 35 Intake and Output 09/04/16 09/04/16 09/05/16 15:00 23:00 07:00 Intake Total 500 ml 600 ml 600 ml Output Total 600 ml 1200 ml Balance 500 ml 0 ml -600 ml Exam Constitutional: alert, well developed Psych: nl mood/affect, no complaints Head: atraumatic, normocephalic Eyes: nl conjunctiva, nl lids ENMT: nl external ears & nose, nl nasal mucosa & septum Neck: non-tender, supple Respiratory: diminished breath sounds, No wheezing Cardiovascular: regular rate and rhythm, systolic murmur Gastrointestinal: non-tender, soft Musculoskeletal: nl extremities to inspection Extremities: No clubbing, No cyanosis, No edema Neurological: nl mental status, nl speech Results Result Diagram: 09/05/16 0605 09/05/16 0605 Results 24 hrs Laboratory Tests Test 09/04/16 17:18 09/04/16 20:33 09/05/16 02:08 09/05/16 06:05 Bedside Glucose 148 150 155 White Blood Count 12.4 H Red Blood Count 4.01 L Hemoglobin 11.1 L Hematocrit 35.3 L Mean Corpuscular Volume 88.0 Mean Corpuscular Hemoglobin 27.7 L Mean Corpuscular Hemoglobin Concent 31.4 L Red Cell Distribution Width 14.8 H Platelet Count 224 Mean Platelet Volume 11.3 H Neutrophils % 74.6 Lymphocytes % 17.0 Monocytes % 5.9 Eosinophils % 1.9 Basophils % 0.3 Nucleated Red Blood Cells % 0.0 Neutrophils # 9.2 H Lymphocytes # 2.1 Monocytes # 0.7 Eosinophils # 0.2 Basophils # 0.0 Nucleated Red Blood Cells # 0.0 Sodium Level 142 Potassium Level 3.5 Chloride Level 105 Carbon Dioxide Level 28 Anion Gap 13 Blood Urea Nitrogen 50 H Creatinine 2.35 H Glucose Level 133 Calcium Level 8.6 Phosphorus Level 4.1 Magnesium Level 2.2 Test 09/05/16 07:53 09/05/16 11:19 Bedside Glucose 135 168 Medications Medications Current Medications Calcitriol (Rocaltrol) 0.25 mcg DAILY PO Last administered on 09/05/16 09:33; Admin Dose 0.25 MCG; Start 09/04/16 at 09:00 Carvedilol (Coreg) 25 mg BID PO Last administered on 09/05/16 09:33; Admin Dose 25 MG; Start 09/03/16 at 21:00 Docusate Sodium (Colace) 100 mg BID PO Last administered on 09/05/16 09:33; Admin Dose 100 MG; Start 09/03/16 at 21:00 Ferrous Sulfate (Ferrous Sulfate (Ec)) 325 mg BID PO Last administered on 09:33; Admin Dose 325 MG; Start 09/03/16 at 21:00 Finasteride (Proscar) 5 mg DAILY PO Last administered on 09/05/16 09:32; Admin Dose 5 MG; Start 09/04/16 at 09:00 Gabapentin (Neurontin) 300 mg QHS PO Last administered on 09/04/16 20:34; Admin Dose 300 MG; Start 09/03/16 at 21:00 Insulin Glargine (Lantus) 40 unit HS SC Last administered on 09/04/16 20:38; Admin Dose 40 UNIT; Start 09/03/16 at 21:00 Isosorbide Mononitrate (Imdur) 30 mg DAILY PO Last administered on 09/05/16 09: 33; Admin Dose 30 MG; Start 09/04/16 at 09:00 Nitroglycerin (Nitroglycerin (Sl Tab) 0.4 Mg) 1 tab [id number] PRN SL CHEST PAIN ; Start 09/03/16 at 13:30 Tamsulosin HCl (Flomax) 0.4 mg HS PO Last administered on 09/04/16 20:36; Admin Dose 0.4 MG; Start 09/03/16 at 21:00 Ticagrelor (Brilinta) 90 mg Q12 PO Last administered on 09/05/16 09:33; Admin Dose 90 MG; Start 09/03/16 at 21:00 Ondansetron HCl (Zofran Inj) 4 mg Q6H PRN IV NAUSEA AND/OR VOMITING; Start 09/03 at 13:30 Acetaminophen (Tylenol Tab) 650 mg Q6H PRN PO PAIN LEVEL 1-3 OR FEVER; Start at 13:30 Acetaminophen (Tylenol Supp) 650 mg Q6H PRN [place] PAIN LEVEL 1-3 OR FEVER; Start 09/03/16 at 13:30 Acetaminophen/ Hydrocodone Bitart ([place] (5/325)) 1 tab Q6H PRN PO MODERATE PAIN LEVEL 4-6; Start 09/03/16 at 13:30 Acetaminophen/ Hydrocodone Bitart ([place] (5/325)) 2 tab Q6H PRN PO SEVERE PAIN LEVEL 7-10; Start 09/03/16 at 13:30 Morphine Sulfate (morphine) 2 mg Q4H PRN IV SEVERE PAIN LEVEL 7-10; Start at 13:30 Docusate Sodium (Colace) 100 mg Q12H PRN PO CONSTIPATION; Start 09/03/16 at 13: 30 Magnesium Hydroxide (Milk Of Mag) 30 ml DAILY PRN PO CONSTIPATION; Start at 13:30 Bisacodyl (Dulcolax Supp) 10 mg DAILY PRN [place] CONSTIPATION; Start 09/03/16 at 13: 30 Diagnostic Test (Pha) 1 ea 1 ea 02 XX ; Start 09/04/16 at 02:00 Vancomycin HCl/ Sodium Chloride (Vancocin/NS) 500 ml @ 125 mls/hr Q48H IVPB Last administered on 09/04/16 08:46; Admin Dose 125 MLS/HR; Start 09/04/16 at 08: 00 Heparin Sodium (Porcine) (Heparin (5000 Units/0.5 ml)) 5,000 unit BID SC Last administered on 09/05/16 09:32; Admin Dose 5,000 UNIT; Start 09/04/16 at 21:00 Furosemide (Lasix) 40 mg DAILY@06 IV Last administered on 09/05/16 05:42; Admin Dose 40 MG; Start 09/05/16 at 06:00 Atorvastatin Calcium (Lipitor) 80 mg HS PO Last administered on 09/04/16 20:36 ; Admin Dose 80 MG; Start 09/04/16 at 21:00 Miscellaneous Information 1 ea NOTE XX ; Start 09/05/16 at 07:00 Glucose (Glutose) 15 gm Q15M PRN PO DECREASED GLUCOSE; Start 09/05/16 at 07:00 Glucose (Glutose) 22.5 gm Q15M PRN PO DECREASED GLUCOSE; Start 09/05/16 at 07:00 Dextrose (D50w Syringe) 25 ml Q15M PRN IV DECREASED GLUCOSE; Start 09/05/16 at 07:00 Dextrose (D50w Syringe) 50 ml Q15M PRN IV DECREASED GLUCOSE; Start 09/05/16 at 07:00 Glucagon (Glucagen) 1 mg Q15M PRN IM DECREASED GLUCOSE; Start 09/05/16 at 07:00 Glucose (Glutose) 15 gm Q15M PRN BUCCAL DECREASED GLUCOSE; Start 09/05/16 at 07: 00 Pantoprazole (Protonix Tab) 40 mg DAILY@06 PO ; Start 09/06/16 at 06:00 MELONY BRITO MD Sep 05, 2016 16:39
[2016-09-05 17:11] LABS: MICROALBUMIN 12.7 mg/dL
[2016-09-05] MEDS: ATORVASTATIN 80 MG TAB PO SCH (22:24)
[2016-09-05] MEDS: TAMSULOSIN (SR) 0.4 MG CAP PO SCH (22:25)
[2016-09-05] MEDS: GABAPENTIN 300 MG CAP PO SCH (22:25)
[2016-09-05] MEDS: INSULIN GLARGINE [LANtus] 3 ML PEN SC SCH (22:48)
[2016-09-05] MEDS: ONDANSETRON 4 MG INJ IV PRN (23:34)
[2016-09-06] VITALS (12 sets, daily range): BP systolic 129–188; BP diastolic 60–100; PULSE 62–78; RESP 15–20
[2016-09-06] MEDS: ACCU-CHEK XX SCH (02:00)
[2016-09-06] MEDS: FUROSEMIDE 40 MG INJ IV SCH (05:53)
[2016-09-06] MEDS ORDERED: PANTOPRAZOLE (EC) 40 MG TAB PO SCH (06:00)
[2016-09-06 07:16] LABS: ADD SCAN DIFF NO
[2016-09-06 07:18] LABS: BASOPHILS % 0.4 % (0.0-2.0); EOSINOPHILS # 0.3 10^3/ul (0.0-0.5); EOSINOPHILS % 3.2 % (0.0-7.0); HEMATOCRIT 37.3 % (42.0-52.0); HEMOGLOBIN 11.8 g/dl (14.0-18.0); LYMPHOCYTES # 1.4 10^3/ul (0.8-2.9); LYMPHOCYTES % 16.8 % (15.0-51.0); MEAN CORPUSCULAR HEMOGLOBIN 27.5 pg (29.0-33.0); MEAN CORPUSCULAR HGB CONC 31.6 g/dl (32.0-37.0); MEAN CORPUSCULAR VOLUME 86.9 fl (82.0-101.0); MEAN PLATELET VOLUME 11.1 fl (7.4-10.4); MONOCYTE # 0.7 10^3/ul (0.3-0.9); MONOCYTES % 7.6 % (0.0-11.0); NEUTROPHIL # 6.1 10^3/ul (1.6-7.5); NEUTROPHILS % 71.6 % (39.0-77.0); PLATELET COUNT 219 10^3/UL (140-415); RED BLOOD COUNT 4.29 10^6/ul (4.70-6.10); RED CELL DISTRIBUTION WIDTH 14.7 % (11.5-14.5); WHITE BLOOD COUNT 8.6 10^3/ul (4.8-10.8)
[2016-09-06 07:53] LABS: POTASSIUM 3.1 mmol/L (3.5-5.1)
[2016-09-06 07:55] LABS: CREATININE 2.16 mg/dl (0.61-1.24)
[2016-09-06 07:56] LABS: PHOSPHORUS 3.8 mg/dl (2.5-4.9)
[2016-09-06 07:57] LABS: MAGNESIUM 2.3 mg/dl (1.7-2.5)
[2016-09-06] MEDS: INSULIN ASPART [NOVOLOG] 3 ML PEN SC SCH ×6 (08:00→17:16)
[2016-09-06] MEDS: ONDANSETRON 4 MG INJ IV PRN (08:59)
[2016-09-06] MEDS: HEPARIN 5,000 UNIT/0.5 ML SYG SC SCH (09:04)
[2016-09-06] MEDS: FERROUS SULFATE (EC) 325 MG TAB PO SCH (09:08)
[2016-09-06] MEDS: TICAGRELOR 90 MG TABLET PO SCH (09:09)
[2016-09-06] MEDS: DOCUSATE SODIUM 100 MG CAP PO SCH (09:09)
[2016-09-06] MEDS: CALCITRIOL 0.25 MCG CAP PO SCH (09:10)
[2016-09-06] MEDS: FINASTERIDE 5 MG TAB PO SCH (09:11)
[2016-09-06] MEDS: ISOSORBIDE MONONITRATE(SR)30 MG TAB PO SCH (09:12)
[2016-09-06] MEDS: VANCOMYCIN 1.75 GM in NS 500 ML IVPB SCH (09:12)
[2016-09-06] MEDS ORDERED: POTASSIUM CHLORIDE (SR) 20 MEQ TAB PO STA (09:26)
--- NOTE | 2016-09-06 09:55 | PN ---
DATE: 09/06/2016 SUBJECTIVE: The patient is stable, no acute events overnight. No fevers, chills, nausea, vomiting, no shortness of breath. OBJECTIVE: VITAL SIGNS: Blood pressure 146/68, respiration is 17, pulse 66, temperature 98.4. HEENT: Head is normocephalic. NECK: Supple. HEART: Regular rate. LUNGS: Show diminished breath sounds at the base. ABDOMEN: Soft, nontender to palpation, no rebound or guarding. EXTREMITIES: Negative for clubbing, cyanosis, no edema. DERMATOLOGIC: No rashes. MUSCULOSKELETAL: No joint effusions. NEUROLOGIC: No change in exam. MEDICATIONS: The patient's medications have been reviewed. LABORATORY DATA: Shows sodium 146, potassium 3.4, chloride 105, BUN 44, creatinine 2.16. White cou nt 8.6, hemoglobin 11.8, hematocrit 37.3, platelet count 219. ASSESSMENT AND PLAN: 1. Chronic kidney disease stage IV with a baseline creatinine around 2 ____ per minute. The patien t's renal function is currently stable, improved this morning. Continue current medical management. Continue to monitor renal function closely on diuretic therapy. 2. Acute congestive heart failure exacerbation, systolic, diastolic. The patient clinically improv ing. The patient is being managed by cardiology, defer diuretic management. 3. Anemia of chronic disease. Monitor hemoglobin and hematocrit levels. 4. Mineral bone disorder. Continue to monitor calcium and phosphorus levels. No need for phosphat e binders. Continue vitamin D analogs. 5. Coronary artery disease status post coronary artery bypass graft. Continue medical management. 6. Acute respiratory failure, clinically improving. Continue current treatment plan. 7. Diabetes. Continue Accu-Cheks, insulin sliding scale. 8. Benign prostatic hypertrophy. Continue Proscar and Flomax. 9. Chronic obstructive pulmonary disease. Continue current treatment plan. 10. History of sleep apnea. Continue CPAP at night. Dictated By: MARTIN GAO/BEVERLY Conf#: [id number] DID#: [id number]
--- NOTE | 2016-09-06 11:00 | CONS ---
Date/Time of Note Date/Time of Note DATE: 09/06/16 TIME: 10:59 Assessment/Plan Assessment/Plan Additional Assessment/Plan Assessment recommendations; 1. Patient admitted for CHF exacerbation with marked clinical improvement. 2. BPH. 3. Diabetes. 4. Chronic renal insufficiency. Continue current treatment. Obtain ambulatory pulse oximetry on room air assess for home O2 needs. Consultation Date/Type/Reason Admit Date/Time Sep 03, 2016 at 11:10 Type of Consultation: Pulmonary 24 HR Interval Summary Free Text/Dictation Patient condition stable. Denies any shortness of breath, chest pain, fever chills. Comfortably sitting in a chair by bedside. General exam; elderly male, awake alert currently in no distress. Exam/Review of Systems Vital Signs Vitals Vital Signs Date Time Temp Pulse Resp B/P Pulse Ox O2 Delivery O2 Flow Rate FiO2 09/06/16 08:10 Nasal Cannula 2.0 09/06/16 08:00 62 09/06/16 07:47 98.4 17 146/68 98 09/03/16 12:48 35 Intake and Output 09/05/16 09/05/16 09/06/16 15:00 23:00 07:00 Intake Total 500 ml Output Total 1500 ml Balance -1000 ml Exam HEENT exam is; supple neck, positive JVD. Pharynx is clear. Patient has few remaining teeth. Pupils are midsize reactive to light. No neck masses. No lymphadenopathy. No thyromegaly. Chest exam; clear to auscultation. S1-S2 audible, no murmurs. Regular rhythm. Abdomen examination; soft, protuberant. Bowel sounds audible. Nontender. Extremity exam; no peripheral edema. Pulses 1+ bilaterally. MANAGER CANCER examination; no focal deficit. Results Result Diagram: 09/06/16 0652 09/06/16 0652 Results 24 hrs Laboratory Tests Test 09/05/16 11:19 09/05/16 17:17 09/05/16 22:21 09/06/16 06:52 Bedside Glucose 168 139 198 White Blood Count 8.6 # Red Blood Count 4.29 L Hemoglobin 11.8 L Hematocrit 37.3 L Mean Corpuscular Volume 86.9 Mean Corpuscular Hemoglobin 27.5 L Mean Corpuscular Hemoglobin Concent 31.6 L Red Cell Distribution Width 14.7 H Platelet Count 219 Mean Platelet Volume 11.1 H Neutrophils % 71.6 Lymphocytes % 16.8 Monocytes % 7.6 Eosinophils % 3.2 Basophils % 0.4 Nucleated Red Blood Cells % 0.0 Neutrophils # 6.1 Lymphocytes # 1.4 Monocytes # 0.7 Eosinophils # 0.3 Basophils # 0.0 Nucleated Red Blood Cells # 0.0 Sodium Level 146 H Potassium Level 3.1 L Chloride Level 105 Carbon Dioxide Level 26 Anion Gap 18 H Blood Urea Nitrogen 44 H Creatinine 2.16 H Glucose Level 146 Calcium Level 9.0 Phosphorus Level 3.8 Magnesium Level 2.3 Test 09/06/16 07:55 Bedside Glucose 134 Medications Medications Current Medications Calcitriol (Rocaltrol) 0.25 mcg DAILY PO Last administered on 09/06/16 09:10; Admin Dose 0.25 MCG; Start 09/04/16 at 09:00 Carvedilol (Coreg) 25 mg BID PO Last administered on 09/06/16 09:11; Admin Dose 25 MG; Start 09/03/16 at 21:00 Docusate Sodium (Colace) 100 mg BID PO Last administered on 09/06/16 09:09; Admin Dose 100 MG; Start 09/03/16 at 21:00 Ferrous Sulfate (Ferrous Sulfate (Ec)) 325 mg BID PO Last administered on 09:08; Admin Dose 325 MG; Start 09/03/16 at 21:00 Finasteride (Proscar) 5 mg DAILY PO Last administered on 09/06/16 09:11; Admin Dose 5 MG; Start 09/04/16 at 09:00 Gabapentin (Neurontin) 300 mg QHS PO Last administered on 09/05/16 22:25; Admin Dose 300 MG; Start 09/03/16 at 21:00 Insulin Glargine (Lantus) 40 unit HS SC Last administered on 09/05/16 22:48; Admin Dose 40 UNIT; Start 09/03/16 at 21:00 Isosorbide Mononitrate (Imdur) 30 mg DAILY PO Last administered on 09/06/16 09: 12; Admin Dose 30 MG; Start 09/04/16 at 09:00 Nitroglycerin (Nitroglycerin (Sl Tab) 0.4 Mg) 1 tab [id number] PRN SL CHEST PAIN ; Start 09/03/16 at 13:30 Tamsulosin HCl (Flomax) 0.4 mg HS PO Last administered on 09/05/16 22:25; Admin Dose 0.4 MG; Start 09/03/16 at 21:00 Ticagrelor (Brilinta) 90 mg Q12 PO Last administered on 09/06/16 09:09; Admin Dose 90 MG; Start 09/03/16 at 21:00 Ondansetron HCl (Zofran Inj) 4 mg Q6H PRN IV NAUSEA AND/OR VOMITING Last administered on 09/06/16 08:59; Admin Dose 4 MG; Start 09/03/16 at 13:30 Acetaminophen (Tylenol Tab) 650 mg Q6H PRN PO PAIN LEVEL 1-3 OR FEVER; Start at 13:30 Acetaminophen (Tylenol Supp) 650 mg Q6H PRN [place] PAIN LEVEL 1-3 OR FEVER; Start 09/03/16 at 13:30 Acetaminophen/ Hydrocodone Bitart ([place] (5/325)) 1 tab Q6H PRN PO MODERATE PAIN LEVEL 4-6; Start 09/03/16 at 13:30 Acetaminophen/ Hydrocodone Bitart ([place] (5/325)) 2 tab Q6H PRN PO SEVERE PAIN LEVEL 7-10; Start 09/03/16 at 13:30 Morphine Sulfate (morphine) 2 mg Q4H PRN IV SEVERE PAIN LEVEL 7-10; Start at 13:30 Docusate Sodium (Colace) 100 mg Q12H PRN PO CONSTIPATION; Start 09/03/16 at 13: 30 Magnesium Hydroxide (Milk Of Mag) 30 ml DAILY PRN PO CONSTIPATION; Start at 13:30 Bisacodyl (Dulcolax Supp) 10 mg DAILY PRN [place] CONSTIPATION; Start 09/03/16 at 13: 30 Diagnostic Test (Pha) 1 ea 1 ea 02 XX ; Start 09/04/16 at 02:00 Vancomycin HCl/ Sodium Chloride (Vancocin/NS) 500 ml @ 125 mls/hr Q48H IVPB Last administered on 09/06/16 09:12; Admin Dose 125 MLS/HR; Start 09/04/16 at 08: 00 Heparin Sodium (Porcine) (Heparin (5000 Units/0.5 ml)) 5,000 unit BID SC Last administered on 09/06/16 09:04; Admin Dose 5,000 UNIT; Start 09/04/16 at 21:00 Furosemide (Lasix) 40 mg DAILY@06 IV Last administered on 09/06/16 05:53; Admin Dose 40 MG; Start 09/05/16 at 06:00 Atorvastatin Calcium (Lipitor) 80 mg HS PO Last administered on 09/05/16 22:24 ; Admin Dose 80 MG; Start 09/04/16 at 21:00 Miscellaneous Information 1 ea NOTE XX ; Start 09/05/16 at 07:00 Glucose (Glutose) 15 gm Q15M PRN PO DECREASED GLUCOSE; Start 09/05/16 at 07:00 Glucose (Glutose) 22.5 gm Q15M PRN PO DECREASED GLUCOSE; Start 09/05/16 at 07:00 Dextrose (D50w Syringe) 25 ml Q15M PRN IV DECREASED GLUCOSE; Start 09/05/16 at 07:00 Dextrose (D50w Syringe) 50 ml Q15M PRN IV DECREASED GLUCOSE; Start 09/05/16 at 07:00 Glucagon (Glucagen) 1 mg Q15M PRN IM DECREASED GLUCOSE; Start 09/05/16 at 07:00 Glucose (Glutose) 15 gm Q15M PRN BUCCAL DECREASED GLUCOSE; Start 09/05/16 at 07: 00 Pantoprazole (Protonix Tab) 40 mg DAILY@06 PO Last administered on 09/06/16 05: 53; Admin Dose 40 MG; Start 09/06/16 at 06:00 VAMSI POLANCO Sep 06, 2016 11:00
--- NOTE | 2016-09-06 13:51 | DS ---
Date/Time of Note Date/Time of Note DATE: 09/06/16 TIME: 13:42 Discharge Summary Admission/Discharge Info Admit Date/Time Sep 03, 2016 at 11:10 Discharge Date/Time Final Diagnosis 1. Congestive heart failure, systolic, acute on chronic, LVEF 20-25%, improvd, follow up with cardiology 2. Ischemic cardiomyopathy, follow up with cardiology 3. Coronary artery disease, s/p PCI/stents, reported not a candidate for CABG, medical management 4. Severe aortic stenosis 5. Hypertension, controlled 6. Dyslipidemia, on lipitor 7. Diabetes mellitus, with vascular and renal manifestation, on insulin 8. Chronic kidney disease, stage 4, follow up with nephrology 9. Benign prostate hyperplasia, on flomax and proscar 10. Peripheral vascular disease - status post bilateral lower extremity bypass surgery 11. Carotid stenosis - bilateral 50-69% on carotid Doppler January 2015 12. History of stroke 13. Aspirin allergy - patient reports severe reaction with airway compromise 14. Sleep apnea Patient Condition: Stable Hospital Course This is a 71-year-old male with reported past medical history of coronary artery disease with myocardial infarction in the past, status post PCI, as well as hypertensive urgency, 3-vessel coronary artery disease status post multiple PCI, dyslipidemia, insulin-dependent diabetes, peripheral vascular disease, acute on chronic kidney disease, carotid stenosis, hypertension, BPH, who did come to [facility] due to reports of shortness of breath. According to the patient, he was in his normal state of health until last night. He started to experience shortness of breath, progressively worse. No associated chest pain, nausea, vomiting or abdominal pain. He did report compliance with his home medications. He does have inhalers at home, but only p.r.n. Progressively, he became orthopneic and as such came to [facility] for further evaluation. Upon examination, he did have further chest radiograph done on 09/03/2014 that did show cardiomegaly with CHF and interstitial pulmonary edema and bilateral pleural effusions. He did also have initial troponin drawn which was negative x2. BNP was noted at 6460 with clinical picture of CHF exacerbation. He also was seen with some renal insufficiency with BUN of 39 and creatinine of 2.31 respectively. He remained afebrile. He was placed on BiPAP with good response. He did also receive Lasix in the ER and did also have good response of his respiratory status, status post administration. No leukocytosis noted. He does report feeling better at this time. No other specific complaints. We will evaluate him for the aforementioned issues. Echocardiography with LVEF 20-25%, severe aortis stenosis with WILLIS 0.7 cm2. It is reported that he is not a candidate for CABG, and so for aortic valve replacement. Patient is treated with iv lasix for CHF, that significantly improved his shortness of breath. I will have him follow up with cardiology outpatient for further treatment. Patient has chronic renal failure, with Cr 2 or so. Cr was 2.33 on admission, that is 2.16 today. Home Meds Reported Medications Ticagrelor* (Brilinta*) 90 Mg Tablet, 90 MG PO Q12, TAB 09/03/16 Pantoprazole* (Protonix*) 40 Mg Tablet.dr, 40 MG PO DAILY, TAB 09/03/16 Isosorbide Mononitrate* (Isosorbide Mononitrate*) 30 Mg Tab.er.24h, 30 MG PO DAILY, TAB 09/03/16 Insulin Lispro (Humalog) 100 Unit/1 Ml Cartridge, 5 UNIT SQ AC MEALS 09/03/16 Gabapentin* (Gabapentin*) 300 Mg Capsule, 300 MG PO QHS, #60 CAP 09/03/16 Furosemide* (Lasix*) 40 Mg Tablet, 40 MG PO DAILY, TAB 09/03/16 Finasteride* (Finasteride*) 5 Mg Tablet, 5 MG PO DAILY, TAB 09/03/16 Ferrous Sulfate* (Ferrous Sulfate*) 325 Mg Tabec, 325 MG PO BID, TAB 09/03/16 Docusate Sodium* (Docusate Sodium*) 100 Mg Capsule, 100 MG PO BID, #60 CAP 09/03/16 Insulin Glargine* (Lantus*) 100 Unit/Ml Soln, 40 UNIT SC HS, EA 01/24/15 Atorvastatin* (Atorvastatin*) 80 Mg Tablet, 80 MG PO HS, TAB 01/24/15 Carvedilol* (Coreg*) 25 Mg Tablet, 25 MG PO BID, TAB 01/24/15 Calcitriol* (Rocaltrol*) 0.25 Mcg Capsule, 0.25 MCG PO DAILY, CAP 01/24/15 Tamsulosin Hcl* (Flomax*) 0.4 Mg Cap.er.24h, 0.4 MG PO DAILY, CAP 01/24/15 Nitroglycerin* (Nitrostat*) 0.4 Mg Tab.subl, 0.4 MG SL Q5MIN Y for CHEST PAIN, BOTTLE 01/24/15 Discontinued Reported Medications Losartan Potassium* (Losartan Potassium*) 50 Mg Tablet, 50 MG PO DAILY, TAB 01/24/15 Insulin Lispro (Humalog) 100 U/Ml Cartridge, 20-25 UNITS SC AC MEALS, EA 01/24/15 Gabapentin* (Neurontin*) 300 Mg Capsule, 600 MG PO TID, CAP 01/24/15 Discontinued Scripts Isosorbide Mononitrate* (Isosorbide Mononitrate*) 30 Mg Tabsr, 60 MG PO DAILY, # 30 Prov:JERRY PERKINSBianca 01/28/15 Clopidogrel Bisulfate (Clopidogrel) 75 Mg Tab, 75 MG PO DAILY for 30 Days, 2 Refills Prov:JERRY PERKINSBianca 01/28/15 Follow-up Plan follow up with PCP, nephrology, and cardiology in one week Pending Labs Laboratory Tests Test 09/05/16 17:17 09/05/16 22:21 09/06/16 06:52 09/06/16 07:55 Bedside Glucose 139mg/dL (70-220) 198mg/dL (70-220) 134mg/dL (70-220) White Blood Count 8.610^3/ul (4.8-10.8) Red Blood Count 4.2910^6/ul (4.70-6.10) Hemoglobin 11.8g/dl (14.0-18.0) Hematocrit 37.3% (42.0-52.0) Mean Corpuscular Volume 86.9fl (82.0-101.0) Mean Corpuscular Hemoglobin 27.5pg (29.0-33.0) Mean Corpuscular Hemoglobin Concent 31.6g/dl (32.0-37.0) Red Cell Distribution Width 14.7% (11.5-14.5) Platelet Count 96302^3/UL (140-415) Mean Platelet Volume 11.1fl (7.4-10.4) Neutrophils % 71.6% (39.0-77.0) Lymphocytes % 16.8% (15.0-51.0) Monocytes % 7.6% (0.0-11.0) Eosinophils % 3.2% (0.0-7.0) Basophils % 0.4% (0.0-2.0) Nucleated Red Blood Cells % 0.0/100WBC (0.0-0.0) Neutrophils # 6.110^3/ul (1.6-7.5) Lymphocytes # 1.410^3/ul (0.8-2.9) Monocytes # 0.710^3/ul (0.3-0.9) Eosinophils # 0.310^3/ul (0.0-0.5) Basophils # 0.010^3/ul (0.0-0.1) Nucleated Red Blood Cells # 0.010^3/ul (0.0-0.0) Sodium Level 146mmol/L (135-144) Potassium Level 3.1mmol/L (3.5-5.1) Chloride Level 105mmol/L (97-110) Carbon Dioxide Level 26mmol/L (21-31) Anion Gap 18 (8-16) Blood Urea Nitrogen 44mg/dl (7-20) Creatinine 2.16mg/dl (0.61-1.24) Glucose Level 146mg/dl (70-220) Calcium Level 9.0mg/dl (8.4-10.2) Phosphorus Level 3.8mg/dl (2.5-4.9) Magnesium Level 2.3mg/dl (1.7-2.5) Test 09/06/16 11:59 Bedside Glucose 174mg/dL (70-220) TACOS ELAINE MD Sep 06, 2016 13:51
--- NOTE | 2016-09-06 14:56 | CONS ---
Date/Time of Note Date/Time of Note DATE: 09/06/16 TIME: 14:53 Assessment/Plan Assessment/Plan Chief Complaint/Hosp Course Assessment: Acute decompensated systolic heart failure - improved with diuresis Cardiomyopathy, LVEF 20-25% - likely combination of ischemic and valvular etiologies Severe aortic stenosis Coronary artery disease - history of multiple myocardial infarctions and coronary stents, most recently to the left anterior descending artery ( February 2016, [facility]) Hypertension Dyslipidemia Diabetes mellitus, insulin-dependent Chronic kidney disease Benign prostate hyperplasia Peripheral vascular disease - status post bilateral lower extremity bypass surgery Carotid stenosis - bilateral 50-69% on carotid Doppler January 2015 History of stroke Aspirin allergy - patient reports severe reaction with airway compromise Blood culture with coagulase negative staph - ? contaminant, per primary team Recommendations: -complex and difficult cardiac situation -patient reports being previously determined not to be a candidate for coronary artery bypass graft surgery due to lack of venous grafts -patient not a candidate for percutaneous coronary intervention due to severe aspirin allergy -without option for coronary revascularization, patient is not a candidate for aortic valve replacement -only option is for medical management, consider hospice evaluation -continue diuresis with Lasix 40mg IV daily - cautious in setting of severe aortic stenosis -continue carvedilol 25mg BID an Imdur 30mg daily -continue ticagrelor 90mg BID -continue atorvastatin 80mg daily Problems: Consultation Date/Type/Reason Admit Date/Time Sep 03, 2016 at 11:10 Type of Consultation: Cardiology 24 HR Interval Summary Free Text/Dictation Breathing improved and back to baseline. Detailed Summary Additional Comments 14 point review of systems without changes. Exam/Review of Systems Vital Signs Vitals Vital Signs Date Time Temp Pulse Resp B/P Pulse Ox O2 Delivery O2 Flow Rate FiO2 09/06/16 12:10 98.5 64 18 153/67 97 09/06/16 08:10 Nasal Cannula 2.0 09/03/16 12:48 35 Intake and Output 09/05/16 09/05/16 09/06/16 15:00 23:00 07:00 Intake Total 500 ml Output Total 1500 ml Balance -1000 ml Exam Constitutional: alert, well developed Psych: nl mood/affect, no complaints Head: atraumatic, normocephalic Eyes: nl conjunctiva, nl lids ENMT: nl external ears & nose, nl nasal mucosa & septum Neck: non-tender, supple Respiratory: diminished breath sounds, No wheezing Cardiovascular: regular rate and rhythm, systolic murmur Gastrointestinal: non-tender, soft Musculoskeletal: nl extremities to inspection Extremities: No clubbing, No cyanosis, No edema Neurological: nl mental status, nl speech Results Result Diagram: 09/06/16 0652 09/06/16 0652 Results 24 hrs Laboratory Tests Test 09/05/16 17:17 09/05/16 22:21 09/06/16 06:52 09/06/16 07:55 Bedside Glucose 139 198 134 White Blood Count 8.6 # Red Blood Count 4.29 L Hemoglobin 11.8 L Hematocrit 37.3 L Mean Corpuscular Volume 86.9 Mean Corpuscular Hemoglobin 27.5 L Mean Corpuscular Hemoglobin Concent 31.6 L Red Cell Distribution Width 14.7 H Platelet Count 219 Mean Platelet Volume 11.1 H Neutrophils % 71.6 Lymphocytes % 16.8 Monocytes % 7.6 Eosinophils % 3.2 Basophils % 0.4 Nucleated Red Blood Cells % 0.0 Neutrophils # 6.1 Lymphocytes # 1.4 Monocytes # 0.7 Eosinophils # 0.3 Basophils # 0.0 Nucleated Red Blood Cells # 0.0 Sodium Level 146 H Potassium Level 3.1 L Chloride Level 105 Carbon Dioxide Level 26 Anion Gap 18 H Blood Urea Nitrogen 44 H Creatinine 2.16 H Glucose Level 146 Calcium Level 9.0 Phosphorus Level 3.8 Magnesium Level 2.3 Test 09/06/16 11:59 Bedside Glucose 174 Medications Medications Current Medications Calcitriol (Rocaltrol) 0.25 mcg DAILY PO Last administered on 09/06/16 09:10; Admin Dose 0.25 MCG; Start 09/04/16 at 09:00 Carvedilol (Coreg) 25 mg BID PO Last administered on 09/06/16 09:11; Admin Dose 25 MG; Start 09/03/16 at 21:00 Docusate Sodium (Colace) 100 mg BID PO Last administered on 09/06/16 09:09; Admin Dose 100 MG; Start 09/03/16 at 21:00 Ferrous Sulfate (Ferrous Sulfate (Ec)) 325 mg BID PO Last administered on 09:08; Admin Dose 325 MG; Start 09/03/16 at 21:00 Finasteride (Proscar) 5 mg DAILY PO Last administered on 09/06/16 09:11; Admin Dose 5 MG; Start 09/04/16 at 09:00 Gabapentin (Neurontin) 300 mg QHS PO Last administered on 09/05/16 22:25; Admin Dose 300 MG; Start 09/03/16 at 21:00 Insulin Glargine (Lantus) 40 unit HS SC Last administered on 09/05/16 22:48; Admin Dose 40 UNIT; Start 09/03/16 at 21:00 Isosorbide Mononitrate (Imdur) 30 mg DAILY PO Last administered on 09/06/16 09: 12; Admin Dose 30 MG; Start 09/04/16 at 09:00 Nitroglycerin (Nitroglycerin (Sl Tab) 0.4 Mg) 1 tab [id number] PRN SL CHEST PAIN ; Start 09/03/16 at 13:30 Tamsulosin HCl (Flomax) 0.4 mg HS PO Last administered on 09/05/16 22:25; Admin Dose 0.4 MG; Start 09/03/16 at 21:00 Ticagrelor (Brilinta) 90 mg Q12 PO Last administered on 09/06/16 09:09; Admin Dose 90 MG; Start 09/03/16 at 21:00 Ondansetron HCl (Zofran Inj) 4 mg Q6H PRN IV NAUSEA AND/OR VOMITING Last administered on 09/06/16 08:59; Admin Dose 4 MG; Start 09/03/16 at 13:30 Acetaminophen (Tylenol Tab) 650 mg Q6H PRN PO PAIN LEVEL 1-3 OR FEVER; Start at 13:30 Acetaminophen (Tylenol Supp) 650 mg Q6H PRN AL PAIN LEVEL 1-3 OR FEVER; Start 09/03/16 at 13:30 Acetaminophen/ Hydrocodone Bitart ([place] (5/325)) 1 tab Q6H PRN PO MODERATE PAIN LEVEL 4-6; Start 09/03/16 at 13:30 Acetaminophen/ Hydrocodone Bitart ([place] (5/325)) 2 tab Q6H PRN PO SEVERE PAIN LEVEL 7-10; Start 09/03/16 at 13:30 Morphine Sulfate (morphine) 2 mg Q4H PRN IV SEVERE PAIN LEVEL 7-10; Start at 13:30 Docusate Sodium (Colace) 100 mg Q12H PRN PO CONSTIPATION; Start 09/03/16 at 13: 30 Magnesium Hydroxide (Milk Of Mag) 30 ml DAILY PRN PO CONSTIPATION; Start at 13:30 Bisacodyl (Dulcolax Supp) 10 mg DAILY PRN AL CONSTIPATION; Start 09/03/16 at 13: 30 Diagnostic Test (Pha) 1 ea 1 ea 02 XX ; Start 09/04/16 at 02:00 Vancomycin HCl/ Sodium Chloride (Vancocin/NS) 500 ml @ 125 mls/hr Q48H IVPB Last administered on 09/06/16 09:12; Admin Dose 125 MLS/HR; Start 09/04/16 at 08: 00 Heparin Sodium (Porcine) (Heparin (5000 Units/0.5 ml)) 5,000 unit BID SC Last administered on 09/06/16 09:04; Admin Dose 5,000 UNIT; Start 09/04/16 at 21:00 Furosemide (Lasix) 40 mg DAILY@06 IV Last administered on 09/06/16 05:53; Admin Dose 40 MG; Start 09/05/16 at 06:00 Atorvastatin Calcium (Lipitor) 80 mg HS PO Last administered on 09/05/16 22:24 ; Admin Dose 80 MG; Start 09/04/16 at 21:00 Miscellaneous Information 1 ea NOTE XX ; Start 09/05/16 at 07:00 Glucose (Glutose) 15 gm Q15M PRN PO DECREASED GLUCOSE; Start 09/05/16 at 07:00 Glucose (Glutose) 22.5 gm Q15M PRN PO DECREASED GLUCOSE; Start 09/05/16 at 07:00 Dextrose (D50w Syringe) 25 ml Q15M PRN IV DECREASED GLUCOSE; Start 09/05/16 at 07:00 Dextrose (D50w Syringe) 50 ml Q15M PRN IV DECREASED GLUCOSE; Start 09/05/16 at 07:00 Glucagon (Glucagen) 1 mg Q15M PRN IM DECREASED GLUCOSE; Start 09/05/16 at 07:00 Glucose (Glutose) 15 gm Q15M PRN BUCCAL DECREASED GLUCOSE; Start 09/05/16 at 07: 00 Pantoprazole 40 mg 40 mg DAILY@06 PO Last administered on 09/06/16 05:53; Admin Dose 40 MG; Start 4/4/17 at 06:00 Potassium Chloride/Sodium Chloride (KCl/NS) 110 ml @ 55 mls/hr ONCE ONCE IVPB ; Start 09/06/16 at 15:00; Stop 09/06/16 at 16:59 MELONY BRITO MD Sep 06, 2016 14:56
[2016-09-06] MEDS ORDERED: POTASSIUM CHLORIDE 20 MEQ in SOD CHLORIDE 0.9% 100 ML IVPB ONE (15:00)
== END 2016-09-06 18:27 | disposition home or self-care (01) | DRG 292 ==
LOC: E/R 09:06 → MS4 11:10
PROVIDERS: ADMIT Internal Medicine; ATTEND Internal Medicine
DX: I50.43 Acute on chronic combined systolic (congestive) and diastolic (congestive) heart failure (principal); I13.0 Hypertensive heart and chronic kidney disease with heart failure and stage 1 through stage 4 chronic kidney disease, or unspecified chronic kidney disease; E11.51 Type 2 diabetes mellitus with diabetic peripheral angiopathy without gangrene; E11.22 Type 2 diabetes mellitus with diabetic chronic kidney disease; N18.4 Chronic kidney disease, stage 4 (severe); N17.9 Acute kidney failure, unspecified; J44.1 Chronic obstructive pulmonary disease with (acute) exacerbation; E88.9 Metabolic disorder, unspecified; E78.5 Hyperlipidemia, unspecified; I65.23 Occlusion and stenosis of bilateral carotid arteries; I25.5 Ischemic cardiomyopathy; I25.10 Atherosclerotic heart disease of native coronary artery without angina pectoris; I35.0 Nonrheumatic aortic (valve) stenosis; N40.0 Benign prostatic hyperplasia without lower urinary tract symptoms; D63.8 Anemia in other chronic diseases classified elsewhere; G47.30 Sleep apnea, unspecified; Z79.02 Long term (current) use of antithrombotics/antiplatelets; Z86.73 Personal history of transient ischemic attack (TIA), and cerebral infarction without residual deficits; Z79.4 Long term (current) use of insulin; Z87.891 Personal history of nicotine dependence; Z88.6 Allergy status to analgesic agent; Z95.1 Presence of aortocoronary bypass graft
CPT/HCPCS: 36600; 71010; 80048; 80053; 80061; 81001; 81003; 82043; 82150; 82550; 82553; 82803; 82962; 83036; 83605; 83690; 83735; 83880; 84100; 84155; 84300; 84436; 84443; 84479; 84484; 85025; 85610; 85730; 87040; 87081; 87086; 87400; 93005; 93306; 94644; 94660; 96374; 96375; C9113; J0743; J1644; J1815; J1940; J2405; J2930; J3370; J3480; J7040

== ENCOUNTER 2017-02-13 12:35 | Inpatient (IN) | payer MEDICAID ==
[~2017-02-13] VITALS: Ht 170.2 cm; Wt 85.4 kg
[~2017-02-13 12:35] MED LIST changes: -CLOP75TA27 PO; +DOCU-159 PO; +FER325 PO; +FINA5TAB4 PO; +FURO-109 PO; -GABA300C PO; +GABA300C16 PO; -INSU100C SC; +INSU100C SQ; -LOSA50TA6 PO; +PANT40TA3 PO; +TICA90TA PO
--- NOTE | 2017-02-13 12:44 | ERA ---
ER Documentation Chief Complaint Date/Time DATE: 02/13/17 TIME: 12:44 Chief Complaint Shortness of breath HPI The patient is a 71-year-old male, presenting with acute shortness of breath today. He had similar symptoms previously. He denies fever, chills, cough, neck pain. He complains of left shoulder pain, denies chest, abdominal pain chest pain. He complains of vague and diffuse abdominal pain that began today, he has similar symptoms previously, denies diarrhea, constipation, dysuria. He does not smoke nor drink Past medical history: History of CHF with low EF of 20%, ischemic cardiomyopathy , CAD, aortic stenosis, hypertension, dyslipidemia, diabetes mellitus, chronic kidney disease, BPH, peripheral vascular disease, carotid stenosis, history of CVA, sleep apnea using CPAP in the evening. Past surgical history: Stent PCI, right great toe amputation, appendectomy ROS All systems reviewed and are negative except as per history of present illness. Medications Home Meds Reported Medications Ticagrelor* (Brilinta*) 90 Mg Tablet, 90 MG PO Q12, TAB 09/03/16 Pantoprazole* (Protonix*) 40 Mg Tablet.dr, 40 MG PO DAILY, TAB 09/03/16 Isosorbide Mononitrate* (Isosorbide Mononitrate*) 30 Mg Tab.er.24h, 30 MG PO DAILY, TAB 09/03/16 Insulin Lispro (Humalog) 100 Unit/1 Ml Cartridge, 5 UNIT SQ AC MEALS 09/03/16 Gabapentin* (Gabapentin*) 300 Mg Capsule, 300 MG PO QHS, #60 CAP 09/03/16 Furosemide* (Lasix*) 40 Mg Tablet, 40 MG PO DAILY, TAB 09/03/16 Finasteride* (Finasteride*) 5 Mg Tablet, 5 MG PO DAILY, TAB 09/03/16 Ferrous Sulfate* (Ferrous Sulfate*) 325 Mg Tabec, 325 MG PO BID, TAB 09/03/16 Docusate Sodium* (Docusate Sodium*) 100 Mg Capsule, 100 MG PO BID, #60 CAP 09/03/16 Insulin Glargine* (Lantus*) 100 Unit/Ml Soln, 40 UNIT SC HS, EA 01/24/15 Atorvastatin* (Atorvastatin*) 80 Mg Tablet, 80 MG PO HS, TAB 01/24/15 Carvedilol* (Coreg*) 25 Mg Tablet, 25 MG PO BID, TAB 01/24/15 Calcitriol* (Rocaltrol*) 0.25 Mcg Capsule, 0.25 MCG PO DAILY, CAP 01/24/15 Tamsulosin Hcl* (Flomax*) 0.4 Mg Cap.er.24h, 0.4 MG PO DAILY, CAP 01/24/15 Nitroglycerin* (Nitrostat*) 0.4 Mg Tab.subl, 0.4 MG SL Q5MIN Y for CHEST PAIN, BOTTLE 01/24/15 Allergies Allergies: Coded Allergies: amoxicillin (Verified Allergy, Intermediate, RASH, 09/03/16) aspirin (Verified Allergy, Intermediate, RASH, 09/03/16) ciprofloxacin (Verified Allergy, Intermediate, RASH, 09/03/16) niacin (Verified Allergy, Intermediate, RASH, 09/03/16) simvastatin (Verified Allergy, Intermediate, RASH, 09/03/16) tetracycline (Verified Allergy, Mild, RASH, 09/03/16) pentoxifylline (Verified Allergy, Unknown, VOMIT, 09/03/16) PMhx/Soc History of Surgery: Yes (CARDIAC STENT AND RT GREAT TOE AMPUTATION.) Anesthesia Reaction: No Hx Neurological Disorder: Yes (PVD.) Hx Respiratory Disorders: Yes (SLEEPING APNEA.) Hx Cardiac Disorders: Yes (IA X8,CORONARY ARTERY BYPASS.) Hx Psychiatric Problems: No Hx Miscellaneous Medical Probl: No (IA X8,HIGH CHOLSTEROL.) Hx Alcohol Use: Yes Hx Substance Use: No Hx Tobacco Use: Yes Physical Exam Vitals Vital Signs Date Time Temp Pulse Resp B/P Pulse Ox O2 Delivery O2 Flow Rate FiO2 02/13/17 13:32 Nasal Cannula 2 02/13/17 12:58 98.7 73 20 118/69 94 Physical Exam Const: No acute distress. Head: Atraumatic. Eyes: Normal Conjunctiva. ENT: Normal External Ears, Nose and Mouth. Neck: Full range of motion. No meningismus. Resp: Bibasilar crackle Cardio: Regular rate and rhythm. Abd: Soft, non distended, normal bowel sounds, non tender. Skin: No petechiae or rashes. Back: No midline or flank tenderness. Ext: Mild bilateral leg edema, no calf tenderness Neur: Awake and alert. No focal deficit Psych: Normal Mood and Affect. Result Diagram: 02/13/17 1313 02/13/17 1313 Results 24 hrs Laboratory Tests Test 02/13/17 13:13 02/13/17 13:14 White Blood Count 9.510^3/ul Red Blood Count 3.4510^6/ul Hemoglobin 9.6g/dl Hematocrit 30.1% Mean Corpuscular Volume 87.2fl Mean Corpuscular Hemoglobin 27.8pg Mean Corpuscular Hemoglobin Concent 31.9g/dl Red Cell Distribution Width 16.3% Platelet Count 93842^3/UL Mean Platelet Volume 11.0fl Neutrophils % 76.6% Lymphocytes % 12.8% Monocytes % 8.0% Eosinophils % 1.9% Basophils % 0.3% Nucleated Red Blood Cells % 0.0/100WBC Neutrophils # (Manual) 7.310^3/ul Lymphocytes # 1.210^3/ul Monocytes # 0.810^3/ul Eosinophils # 0.210^3/ul Basophils # 0.010^3/ul Nucleated Red Blood Cells # 0.010^3/ul Prothrombin Time 14.9Sec Prothrombin Time Ratio 1.2 INR International Normalized Ratio 1.16 Activated Partial Thromboplast Time 35.0Sec Urine Color YELLOW Urine Clarity CLEAR Urine pH 5.0 Urine Specific Wilbur 1.013 Urine Ketones NEGATIVEmg/dL Urine Nitrite NEGATIVEmg/dL Urine Bilirubin NEGATIVEmg/dL Urine Urobilinogen NEGATIVEmg/dL Urine Leukocyte Esterase NEGATIVELeu/ul Urine Microscopic RBC 4/HPF Urine Microscopic WBC 1/HPF Urine Hemoglobin 1+mg/dL Urine Glucose NEGATIVEmg/dL Urine Total Protein NEGATIVEmg/dl Sodium Level 140mmol/L Potassium Level 4.5mmol/L Chloride Level 103mmol/L Carbon Dioxide Level 27mmol/L Anion Gap 15 Blood Urea Nitrogen 64mg/dl Creatinine 3.00mg/dl Glucose Level 160mg/dl Calcium Level 9.1mg/dl Total Bilirubin 0.7mg/dl Direct Bilirubin 0.00mg/dl Indirect Bilirubin 0.7mg/dl Aspartate Amino Transf (AST/SGOT) 14IU/L Alanine Aminotransferase (ALT/SGPT) 20IU/L Alkaline Phosphatase 65IU/L Troponin I 0.032ng/ml B-Type Natriuretic Peptide 31630FX/ML Total Protein 7.1g/dl Albumin 3.6g/dl Globulin 3.50g/dl Albumin/Globulin Ratio 1.02 Lipase 43U/L Bedside Glucose 166mg/dL Current Medications Medications (Trade) Dose Ordered Sig/Caty Route PRN Reason Start Time Stop Time Status Last Admin Dose Admin Furosemide (Lasix) 80 mg ONCE ONCE IV 02/13/17 14:30 02/13/17 14:31 Procedures/MDM EKG: Read by emergency physician Rate/Rhythm: Normal Sinus Rhythm 75 beats/min QRS, ST, T-waves: No ST elevation, no T inversion, Nonspecific T abnormality Impression: Abnormal EKG [place] [id number] Radiology Main Line: [phone] DIAGNOSTIC IMAGING REPORT Patient: JANIE WEBER : 1945 Age: 71 Sex: M MR #: [id number] DOS: 02/13/17 1256 Ordering MD: OWEN AVILA MD Location: E/R Room/Bed: PROCEDURE: CT abdomen and pelvis without IV contrast. CLINICAL INDICATION: Abdomen pain. TECHNIQUE: CT scan of the abdomen and pelvis was performed on a [address] scanner. The patient is scanned without IV contrast. Coronal and sagittal reformatted images were obtained from the axial source images. Images were reviewed on a high-resolution PACS workstation. Total radiation dose: Total CTDIvol: 16.4 mGy. Total DLP: 1093 mGy-cm. One or more of the following dose reduction techniques were used: automated exposure control, adjustment of the mA and/or kV according to patient size, or use of iterative reconstruction technique. COMPARISON: None available. FINDINGS: CT abdomen: There is moderate bilateral pleural effusion.. The heart is somewhat enlarged with mild pericardial effusion. The liver is normal in size and density without focal hepatic mass or biliary dilatation. There is 5 cm x 3.1 cm low density lesion in the spleen The stomach is partially collapsed but is grossly unremarkable. The pancreas as visualized is normal. There are multiple stones in the gallbladder and there is no evidence of biliary dilatation. The adrenal glands are symmetrical and normal. The kidneys are symmetrically normal bilaterally. No renal obstructive uropathy or mass lesion is seen.. The aorta is normal in caliber with scattered calcified atherosclerosis. There is no retroperitoneal lymphadenopathy. The benny hepatis region is clear. The bowel and mesentery, as visualized, are equally unremarkable. CT pelvis: There is no indication of acute appendicitis in the right lower quadrant. The small bowel loops situated within the pelvis are unremarkable. The pelvic organs are normal. The pelvic sidewalls and inguinal regions are clear. No mass, lymphadenopathy is seen. No acute inflammation seen. The prostate is somewhat enlarged The urinary bladder is normal. There is old severe compression of L1 vertebral body without retropulsion.. No osteolytic or osteoblastic lesion is detected. IMPRESSION: 1. Multiple stones in the gallbladder. Normal gallbladder wall. 2. 5 cm x 3.1 cm low density lesion in the spleen recommend ultrasound for further evaluation. 3. Mild cardiomegaly. Mild pericardial effusion. 4. Somewhat enlarged prostate. 5. Moderate bilateral pleural effusion. 6. Old severe compression of L1 vertebral body without retropulsion. RPTAT: GG .Sherman Pulido MD, MD Date Time Electronically viewed and signed by .Sherman Pulido MD, on 02/13/2017 14:08 .Y/ CC: OWEN AVILA MD [place] [id number] Radiology Main Line: [phone] DIAGNOSTIC IMAGING REPORT Patient: JANIE WEBER : 1945 Age: 71 Sex: M MR #: [id number] DOS: 02/13/17 1256 Ordering MD: OWEN AVILA MD Location: E/R Room/Bed: PROCEDURE: XR Chest. CLINICAL INDICATION: Shortness of breath TECHNIQUE: Single AP view the chest were obtained. COMPARISON: 09/03/2016 FINDINGS: There is mild cardiomegaly. There is pulmonary vascular congestion. Small bilateral pleural effusions. The lungs are otherwise clear and there is no pneumothorax. The bones and soft tissues are unremarkable. IMPRESSION: Mild cardiomegaly with pulmonary vascular congestion. Small bilateral pleural effusions RPTAT: HSM .Pratima Lobo MD, MD Date Time Electronically viewed and signed by .Pratima Lobo MD, MD on 02/13/2017 13:28 .M/ CC: OWEN AVILA MD MEDICAL MAKING DECISION: The patient is a 71-year-old male, presenting with acute CHF exacerbation, acute biliary colic, suspected spleen lesion, acute on chronic kidney disease. He was treated with Lasix 80 mg IV for acute CHF with good response. The differential diagnoses considered include but are not limited to asthma, COPD, pneumonia, pulmonary embolus, pleural effusion, congestive heart failure. Critical Care: Time: 35 minutes excluding all billable procedures. Treatments/Evaluations: Close monitoring and treatment of unstable vital signs, cardiorespiratory, and neurologic status, while maintaining tight balance of fluid, respiratory, and cardiac interventions. Departure Diagnosis: Primary Impression: CHF (congestive heart failure) Additional Impressions: Biliary colic Acute kidney injury superimposed on chronic kidney disease Lesion of spleen Anemia Condition: Stable Comments I discussed the findings with the patient. I discussed the patient with the on- call hosptilalist Dr Hu at 2:15 pm. who was made aware of the lab, the treatment, the patient condition. The patient is admitted to [facility] MD Feb 13, 2017 12:44
[2017-02-13 13:28] LABS: BASOPHILS % 0.3 % (0.0-2.0); EOSINOPHILS # 0.2 10^3/ul (0.0-0.5); EOSINOPHILS % 1.9 % (0.0-7.0); HEMATOCRIT 30.1 % (42.0-52.0); HEMOGLOBIN 9.6 g/dl (14.0-18.0); LYMPHOCYTES # 1.2 10^3/ul (0.8-2.9); LYMPHOCYTES % 12.8 % (15.0-51.0); MEAN CORPUSCULAR HEMOGLOBIN 27.8 pg (29.0-33.0); MEAN CORPUSCULAR HGB CONC 31.9 g/dl (32.0-37.0); MEAN CORPUSCULAR VOLUME 87.2 fl (82.0-101.0); MONOCYTE # 0.8 10^3/ul (0.3-0.9); NEUTROPHILS % 76.6 % (39.0-77.0); PLATELET COUNT 175 10^3/UL (140-415); RED BLOOD COUNT 3.45 10^6/ul (4.70-6.10); RED CELL DISTRIBUTION WIDTH 16.3 % (11.5-14.5); WHITE BLOOD COUNT 9.5 10^3/ul (4.8-10.8)
--- NOTE | 2017-02-13 13:28 | RADRPT ---
PROCEDURE: XR Chest. CLINICAL INDICATION: Shortness of breath TECHNIQUE: Single AP view the chest were obtained. COMPARISON: 09/03/2016 FINDINGS: There is mild cardiomegaly. There is pulmonary vascular congestion. Small bilateral pleural effusio ns. The lungs are otherwise clear and there is no pneumothorax. The bones and soft tissues are unre markable. IMPRESSION: Mild cardiomegaly with pulmonary vascular congestion. Small bilateral pleural effusions RPTAT: HSM .Pratima Lobo MD, Date Time Electronically viewed and signed by .Pratima Lobo MD, on 02/13/2017 13:28 .M/
[2017-02-13 13:43] LABS: INR 1.16; PROTIME 14.9 Sec (12.2-14.2); PT RATIO 1.2
[2017-02-13 13:45] LABS: ALBUMIN 3.6 g/dl (3.3-4.9); ALBUMIN/GLOBULIN RATIO 1.02; BILIRUBIN,INDIRECT 0.7 mg/dl (0-1.1); BILIRUBIN,TOTAL 0.7 mg/dl (0.2-1.3); CALCIUM 9.1 mg/dl (8.4-10.2); POTASSIUM 4.5 mmol/L (3.5-5.1); TOTAL PROTEIN 7.1 g/dl (6.1-8.1)
[2017-02-13 13:56] LABS: TROPONIN-I 0.032 ng/ml (0.00-0.12)
[2017-02-13 14:03] LABS: ADD UMIC YES; UR ASCORBIC ACID NEGATIVE (NEGATIVE); UR BILIRUBIN (Dip) NEGATIVE (NEGATIVE); UR BLOOD (Dip) 1+ mg/dL (NEGATIVE); UR CLARITY CLEAR (CLEAR); UR COLOR YELLOW (YELLOW); UR GLUCOSE (Dip) NEGATIVE (NEGATIVE); UR KETONES (Dip) NEGATIVE (NEGATIVE); UR LEUKOCYTE ESTERASE (Dip) NEGATIVE Leu/ul (NEGATIVE); UR NITRITE (Dip) NEGATIVE (NEGATIVE); UR RBC 4 /HPF (0-5); UR SPECIFIC GRAVITY (Dip) 1.013 (1.003-1.030); UR TOTAL PROTEIN (Dip) NEGATIVE (NEGATIVE); UR UROBILINOGEN (Dip) NEGATIVE (NEGATIVE)
--- NOTE | 2017-02-13 14:08 | RADRPT ---
PROCEDURE: CT abdomen and pelvis without IV contrast. CLINICAL INDICATION: Abdomen pain. TECHNIQUE: CT scan of the abdomen and pelvis was performed on a [address] scanner. The patient is scanned without IV contrast. Coronal and sagittal reformatted images were obtained from the axia l source images. Images were reviewed on a high-resolution PACS workstation. Total radiation dose: Total CTDIvol: 16.4 mGy. Total DLP: 1093 mGy-cm. One or more of the following dose reduction techniques were used: automated exposure control, adjustment of the mA and/or kV acc ording to patient size, or use of iterative reconstruction technique. COMPARISON: None available. FINDINGS: CT abdomen: There is moderate bilateral pleural effusion.. The heart is somewhat enlarged with mild pericardial effusion. The liver is normal in size and density without focal hepatic mass or biliary dilatation. There is 5 cm x 3.1 cm low density lesion in the spleen The stomach is partially collapsed but is grossly un remarkable. The pancreas as visualized is normal. There are multiple stones in the gallbladder and there is no evidence of biliary dilatation. The adrenal glands are symmetrical and normal. The kidneys are symmetrically normal bilaterally. N o renal obstructive uropathy or mass lesion is seen.. The aorta is normal in caliber with scattered calcified atherosclerosis. There is no retroperitonea l lymphadenopathy. The benny hepatis region is clear. The bowel and mesentery, as visualized, are equally unremarkable. CT pelvis: There is no indication of acute appendicitis in the right lower quadrant. The small bowel loops sit uated within the pelvis are unremarkable. The pelvic organs are normal. The pelvic sidewalls and i nguinal regions are clear. No mass, lymphadenopathy is seen. No acute inflammation seen. The pros enriquez is somewhat enlarged The urinary bladder is normal. There is old severe compression of L1 vertebral body without retropulsion.. No osteolytic or osteob lastic lesion is detected. IMPRESSION: 1. Multiple stones in the gallbladder. Normal gallbladder wall. 2. 5 cm x 3.1 cm low density lesion in the spleen recommend ultrasound for further evaluation. 3. Mild cardiomegaly. Mild pericardial effusion. 4. Somewhat enlarged prostate. 5. Moderate bilateral pleural effusion. 6. Old severe compression of L1 vertebral body without retropulsion. RPTAT: GG .Sherman Pulido MD, MD Date Time Electronically viewed and signed by .Sherman Pulido MD, MD on 02/13/2017 14:08 .Y/
[2017-02-13] MEDS ORDERED: FUROSEMIDE 40 MG INJ IV ONE (14:30)
[2017-02-13] MEDS ORDERED: EZET10TA3 PO (14:46)
[2017-02-13] MEDS ORDERED: LISI2.5T59 PO (14:47)
[2017-02-13] MEDS ORDERED: ALBU8.5H3 INH (14:49)
[2017-02-13] MEDS ORDERED: INSU200I SQ (14:49)
[2017-02-13] MEDS ORDERED: MOME13HF2 INHALATION (14:49)
[2017-02-13 18:29] VITALS: Ht 170.2 cm; Wt 85.4 kg
[2017-02-13] MEDS ORDERED: FURO20TA3 PO (18:56)
[2017-02-13] MEDS ORDERED: HYDROCODONE/APAP (5/325) TAB PO PRN (19:00)
[2017-02-13] MEDS ORDERED: ONDANSETRON 4 MG INJ IV PRN (19:00)
[2017-02-13] MEDS ORDERED: NITROGLYCERIN (SL) 0.4 MG TAB SL PRN (19:00)
[2017-02-13] MEDS ORDERED: NACL 0.9% 3 ML SYG IV SCH (19:00)
[2017-02-13] MEDS ORDERED: morphine 2 MG INJ IV PRN (19:00)
[2017-02-13] MEDS ORDERED: ACETAMINOPHEN 325 MG TAB PO PRN (19:00)
[2017-02-13] MEDS ORDERED: ALBUTEROL HFA 8 GM INHALER INH PRN (19:00)
[2017-02-13] MEDS ORDERED: GLUCOSE GEL 15 GRAM TUBE BUCCAL PRN (19:30)
[2017-02-13] MEDS ORDERED: GLUCOSE GEL 15 GRAM TUBE PO PRN ×2 (19:30)
[2017-02-13] MEDS ORDERED: GLUCAGON 1 MG INJ IM PRN (19:30)
[2017-02-13] MEDS ORDERED: DEXTROSE 50% 50 ML SYRINGE IV PRN ×2 (19:30)
[2017-02-13 20:00] VITALS: BP 130/74; PULSE 75; RESP 18
[2017-02-13] MEDS: GABAPENTIN 300 MG CAP PO SCH (21:31)
[2017-02-13] MEDS: FERROUS SULFATE (EC) 325 MG TAB PO SCH (21:31)
[2017-02-13] MEDS: ATORVASTATIN 80 MG TAB PO SCH (21:31)
[2017-02-13] MEDS: TICAGRELOR 90 MG TABLET PO SCH (21:33)
[2017-02-13] MEDS: INSULIN GLARGINE [LANtus] 3 ML PEN SC SCH (21:40)
[2017-02-13 23:54] VITALS: BP 129/62; RESP 20
[2017-02-14] VITALS (12 sets, daily range): BP systolic 107–124; BP diastolic 58–62; PULSE 65–75; RESP 16–18
[2017-02-14] MEDS: FUROSEMIDE 40 MG INJ IV SCH ×2 (06:21→17:17)
[2017-02-14 07:44] LABS: BASOPHILS % 0.4 % (0.0-2.0); EOSINOPHILS # 0.3 10^3/ul (0.0-0.5); EOSINOPHILS % 3.3 % (0.0-7.0); HEMATOCRIT 29.5 % (42.0-52.0); HEMOGLOBIN 9.2 g/dl (14.0-18.0); LYMPHOCYTES # 1.5 10^3/ul (0.8-2.9); LYMPHOCYTES % 17.1 % (15.0-51.0); MEAN CORPUSCULAR HEMOGLOBIN 27.4 pg (29.0-33.0); MEAN CORPUSCULAR HGB CONC 31.2 g/dl (32.0-37.0); MEAN CORPUSCULAR VOLUME 87.8 fl (82.0-101.0); MEAN PLATELET VOLUME 11.3 fl (7.4-10.4); MONOCYTE # 0.7 10^3/ul (0.3-0.9); MONOCYTES % 8.2 % (0.0-11.0); NEUTROPHILS % 70.6 % (39.0-77.0); PLATELET COUNT 199 10^3/UL (140-415); RED BLOOD COUNT 3.36 10^6/ul (4.70-6.10); RED CELL DISTRIBUTION WIDTH 16.6 % (11.5-14.5); WHITE BLOOD COUNT 8.5 10^3/ul (4.8-10.8)
[2017-02-14] MEDS: INSULIN ASPART [NOVOLOG] 3 ML PEN SC SCH ×4 (07:55→21:00)
[2017-02-14] MEDS ORDERED: INSULIN GLARGINE [LANtus] 3 ML PEN SC SCH (08:00)
[2017-02-14 08:15] LABS: CREATININE 3.01 mg/dl (0.61-1.24); MAGNESIUM 2.5 mg/dl (1.7-2.5); PHOSPHORUS 4.9 mg/dl (2.5-4.9); POTASSIUM 3.8 mmol/L (3.5-5.1)
[2017-02-14] MEDS: FINASTERIDE 5 MG TAB PO SCH (08:37)
[2017-02-14] MEDS: TICAGRELOR 90 MG TABLET PO SCH ×2 (08:37→21:02)
[2017-02-14] MEDS: TAMSULOSIN (SR) 0.4 MG CAP PO SCH (08:38)
[2017-02-14] MEDS: LISINOPRIL 5 MG TAB PO SCH (08:38)
[2017-02-14] MEDS: PANTOPRAZOLE (EC) 40 MG TAB PO SCH (08:39)
[2017-02-14] MEDS: EZETIMIBE 10 MG TAB PO SCH (08:39)
[2017-02-14] MEDS: FERROUS SULFATE (EC) 325 MG TAB PO SCH ×2 (08:39→21:00)
[2017-02-14] MEDS: CALCITRIOL 0.25 MCG CAP PO SCH (08:40)
--- NOTE | 2017-02-14 15:06 | PN ---
Date/Time of Note Date/Time of Note DATE: 02/14/17 TIME: 15:06 Assessment/Plan VTE Prophylaxis VTE Prophylaxis Intervention: SCD's Lines/Catheters IV [facility]ter [facility]from [facility] Urinary Cath still in place: No Assessment/Plan Chief Complaint/Hosp Course 1. Congestive heart failure exacerbation, systolic, acute on chronic, known LVEF 20-25% -Continue diuresis/BB/ACEI/Statin 2. Ischemic cardiomyopathy -Continue medical management. 3.Pleural effusion, Moderate. -Attempt US guided thoracentesis if significant amount of fluids present 3. Coronary artery disease, s/p PCI/stents -Continue Brilinta, antihypertensives and statin. 4. Aortic stenosis -Monitor careful afterload reduction -Repeat echo and consider cards if indicated. 5. Hypertension, controlled -continue antihypertensives 6. Dyslipidemia -on Zetia 7. Type 2 Diabetes mellitus. A1C 7.9 -Accuchecks,ISS,Lantus 8. Chronic kidney disease, stage 4. -Nephrology consult Monitor renal fxn closely-Renally dose meds. 9. Benign prostate hyperplasia - on flomax and proscar 10. Peripheral vascular disease - status post bilateral lower extremity bypass surgery -Continue antiplatelets 11. Carotid stenosis - bilateral 50-69% on carotid Doppler January 2015 -Monitor 12. History of stroke. no present issues 13. Sleep apnea. -Recommend outpt sleep study -CPAP PRN PLAN:Continue current medical management. Patient was seen in collaboration with . Problems: Subjective 24 Hr Interval Summary Free Text/Dictation Overall feels improvement.On 2L Nasal cannula. Exam/Review of Systems Vital Signs Vitals Vital Signs Date Time Temp Pulse Resp B/P Pulse Ox O2 Delivery O2 Flow Rate FiO2 02/14/17 12:29 70 02/14/17 11:25 98.2 16 119/60 96 02/14/17 10:01 2.0 02/14/17 08:00 Nasal Cannula Intake and Output 02/13/17 02/13/17 02/14/17 15:00 23:00 07:00 Intake Total 500 ml Output Total 1200 ml Balance -700 ml Exam General: Well developed male, not in any acute distress . HEENT: Normocephalic, Atraumatic, No laceration or hematoma; Eyes: PEERL, Conjunctiva clear, Anicteric sclera Neck: Supple without any lymphadenopathy, nontender, no JVD, no carotid bruits, trachea midline, no thyromegaly Cardiac: S1, S2 auscultated, regular rhythm and rate, no mumurs or gallop Pulmonary: Diminished bibasilar. Mildly increased work of breathing. Crackles+ upper lobes GI: Abdomen normal to inspection. Soft, non- distended, no masses, no rebound tenderness or guarding. Bowel sounds active on all four quadrants Genitourinary: Deferred Extremities: No cyanosis, clubbing, or edema. Pulses [2+] bilaterally. Full ROM on all four extremities. No focal weakness appreciated. Neurologic: Alert to person, place, time, and situation. Affect appropriate, intact sensation. Skin: Clean,dry, and intact. No ecchymosis, no rashes, or lesions Results Result Diagram: 02/14/1744 02/14/1744 Results 24 hrs Laboratory Tests Test 02/13/17 21:29 02/14/17 06:44 02/14/17 08:03 02/14/17 11:57 Bedside Glucose 174 96 131 White Blood Count 8.5 Red Blood Count 3.36 L Hemoglobin 9.2 L Hematocrit 29.5 L Mean Corpuscular Volume 87.8 Mean Corpuscular Hemoglobin 27.4 L Mean Corpuscular Hemoglobin Concent 31.2 L Red Cell Distribution Width 16.6 H Platelet Count 199 Mean Platelet Volume 11.3 H Neutrophils % 70.6 Lymphocytes % 17.1 Monocytes % 8.2 Eosinophils % 3.3 Basophils % 0.4 Nucleated Red Blood Cells % 0.0 Neutrophils # (Manual) 6.0 Lymphocytes # 1.5 Monocytes # 0.7 Eosinophils # 0.3 Basophils # 0.0 Nucleated Red Blood Cells # 0.0 Sodium Level 145 H Potassium Level 3.8 Chloride Level 105 Carbon Dioxide Level 29 Anion Gap 15 Blood Urea Nitrogen 62 H Creatinine 3.01 H Glucose Level 96 # Hemoglobin A1c 7.9 H Calcium Level 9.0 Phosphorus Level 4.9 Magnesium Level 2.5 Medications Medications Current Medications Ondansetron HCl (Zofran Inj) 4 mg Q6H PRN IV NAUSEA AND/OR VOMITING Last administered on 02/13/17t 22:27; Admin Dose 4 MG; Start 02/13/17 at 19:00 Acetaminophen (Tylenol Tab) 650 mg Q6H PRN PO PAIN LEVEL 1-3 OR FEVER; Start at 19:00 Acetaminophen/ Hydrocodone Bitart ([place] (5/325)) 1 tab Q6H PRN PO MODERATE PAIN LEVEL 4-6; Start 02/13/17 at 19:00 Morphine Sulfate (morphine) 2 mg Q4H PRN IV SEVERE PAIN LEVEL 7-10; Start 02/13 at 19:00 Albuterol (Ventolin Hfa) 2 puff Q6H PRN INH WHEEZING AND SOB; Start 02/13/17 at 19:00 Atorvastatin Calcium (Lipitor) 80 mg HS PO Last administered on 02/13/17 21:31 ; Admin Dose 80 MG; Start 02/13/17 at 21:00 Calcitriol (Rocaltrol) 0.25 mcg DAILY PO Last administered on 02/14/17 08:40; Admin Dose 0.25 MCG; Start 02/14/17 at 09:00 Carvedilol (Coreg) 25 mg BID PO Last administered on 02/14/17 08:40; Admin Dose 25 MG; Start 02/13/17 at 21:00 EZETIMIBE (Zetia) 10 mg DAILY PO Last administered on 02/14/17 08:39; Admin Dose 10 MG; Start 02/14/17 at 09:00 Ferrous Sulfate (Ferrous Sulfate (Ec)) 325 mg BID PO Last administered on 08:39; Admin Dose 325 MG; Start 02/13/17 at 21:00 Finasteride (Proscar) 5 mg DAILY PO Last administered on 02/14/17 08:37; Admin Dose 5 MG; Start 02/14/17 at 09:00 Gabapentin (Neurontin) 300 mg QHS PO Last administered on 02/13/17 21:31; Admin Dose 300 MG; Start 02/13/17 at 21:00 Insulin Glargine (Lantus) 40 unit HS SC Last administered on 02/13/17 21:40; Admin Dose 40 UNIT; Start 02/13/17 at 21:00 Lisinopril (Zestril) 2.5 mg DAILY PO Last administered on 02/14/17 08:38; Admin Dose 2.5 MG; Start 02/14/17 at 09:00 Nitroglycerin (Nitroglycerin (Sl Tab) 0.4 Mg) 1 tab [id number] PRN SL CHEST PAIN ; Start 02/13/17 at 19:00 Pantoprazole (Protonix Tab) 40 mg DAILY PO Last administered on 02/14/17 08:39 ; Admin Dose 40 MG; Start 02/14/17 at 09:00 Tamsulosin HCl (Flomax) 0.4 mg DAILY PO Last administered on 02/14/17 08:38; Admin Dose 0.4 MG; Start 02/14/17 at 09:00 Ticagrelor (Brilinta) 90 mg Q12 PO Last administered on 02/14/17 08:37; Admin Dose 90 MG; Start 02/13/17 at 21:00 Miscellaneous Information 1 ea NOTE XX ; Start 02/13/17 at 19:30 Glucose (Glutose) 15 gm Q15M PRN PO DECREASED GLUCOSE; Start 02/13/17 at 19:30 Glucose (Glutose) 22.5 gm Q15M PRN PO DECREASED GLUCOSE; Start 02/13/17 at 19: 30 Dextrose (D50w Syringe) 25 ml Q15M PRN IV DECREASED GLUCOSE; Start 02/13/17 at 19:30 Dextrose (D50w Syringe) 50 ml Q15M PRN IV DECREASED GLUCOSE; Start 02/13/17 at 19:30 Glucagon (Glucagen) 1 mg Q15M PRN IM DECREASED GLUCOSE; Start 02/13/17 at 19:30 Glucose (Glutose) 15 gm Q15M PRN BUCCAL DECREASED GLUCOSE; Start 02/13/17 at 19 :30 Diagnostic Test (Pha) (Accu-Chek) 1 ea 02 XX ; Start 02/15/17 at 02:00 Diagnostic Test (Pha) (Accu-Chek) 1 ea 02 XX ; Start 02/15/17 at 02:00 CONCEPCION CLINE NP Feb 14, 2017 15:06
[2017-02-14 19:33] LABS: ADD UMIC NO; UR ASCORBIC ACID NEGATIVE (NEGATIVE); UR BILIRUBIN (Dip) NEGATIVE (NEGATIVE); UR BLOOD (Dip) NEGATIVE (NEGATIVE); UR CLARITY CLEAR (CLEAR); UR COLOR STRAW (YELLOW); UR GLUCOSE (Dip) NEGATIVE (NEGATIVE); UR KETONES (Dip) NEGATIVE (NEGATIVE); UR LEUKOCYTE ESTERASE (Dip) NEGATIVE Leu/ul (NEGATIVE); UR NITRITE (Dip) NEGATIVE (NEGATIVE); UR SPECIFIC GRAVITY (Dip) 1.008 (1.003-1.030); UR TOTAL PROTEIN (Dip) NEGATIVE (NEGATIVE); UR UROBILINOGEN (Dip) 1+ mg/dL (NEGATIVE)
[2017-02-14] MEDS: GABAPENTIN 300 MG CAP PO SCH (21:00)
[2017-02-14] MEDS: ATORVASTATIN 80 MG TAB PO SCH (21:00)
[2017-02-14] MEDS: DOCUSATE SODIUM 100 MG CAP PO SCH (21:00)
[2017-02-14] MEDS: INSULIN GLARGINE [LANtus] 3 ML PEN SC SCH (21:03)
--- NOTE | 2017-02-14 22:28 | HP ---
Date/Time of Note Date/Time of Note DATE: 02/14/17 TIME: 22:28 Assessment/Plan VTE Prophylaxis VTE Prophylaxis Intervention: heparin Lines/Catheters IV [facility] Saline Lock Urinary Cath still in place: No Assessment/Plan Assessment/Plan ASSESSMENT This is a 71nyo male with history of CHF with low EF of 20%, ischemic cardiomyopathy, CAD, aortic stenosis, hypertension, dyslipidemia, diabetes mellitus, chronic kidney disease, BPH, peripheral vascular disease, carotid stenosis, history of CVA, sleep apnea using CPAP who presented to ER for probable hypoxia PLAN pt actually denied acute symptoms of SOB even though he reports chronic symptoms. CXR showed stable pleural effusion. Plan is to place him on IV lasix and continue his home medications with adjustment as needed. Note however that he does have acute on CKD. Will monitor cr closely. Consider Nephrology consult. HPI/ROS Admit Date/Time Admit Date/Time Feb 13, 2017 at 14:15 Hx of Present Illness This is a 71-year-old male with reported past medical history of coronary artery disease with myocardial infarction in the past, status post PCI, as well as hypertensive urgency, 3-vessel coronary artery disease status post multiple PCI, dyslipidemia, insulin-dependent diabetes, peripheral vascular disease, chronic kidney disease, carotid stenosis, hypertension, BPH, who presented to ER for hypoxia. He said his told him that his O2 Saturation was in the 80s. Er note reports that pt c/o SOB, but on my questioning he denied acute symptoms even though chronically he experiences SOB. He uses CPAP at night. He did however report mild bloating sensation in his belly. PMH/Family/Social Past Surgical History Past Surgical Hx: appendectomy, other Social History Smoking Status: Former smoker Exam/Review of Systems Vital Signs Vitals Vital Signs Date Time Temp Pulse Resp B/P Pulse Ox O2 Delivery O2 Flow Rate FiO2 02/14/17 20:07 69 02/14/17 19:47 98.5 18 124/60 95 02/14/17 15:05 2.0 02/14/17 08:00 Nasal Cannula Intake and Output 02/13/17 02/13/17 02/14/17 15:00 23:00 07:00 Intake Total 500 ml Output Total 1200 ml Balance -700 ml Exam Constitutional: other (No acute distress) Head: atraumatic, normocephalic Eyes: EOMI, PERRL Respiratory: diminished breath sounds Cardiovascular: regular rate and rhythm, systolic murmur Gastrointestinal: other (mild discomfort to deep palpations), soft Extremities: normal pulses Labs Result Diagram: 02/14/1764302/14/17643 Medications Medications Current Medications Ondansetron HCl (Zofran Inj) 4 mg Q6H PRN IV NAUSEA AND/OR VOMITING Last administered on 02/13/17 22:27; Admin Dose 4 MG; Start 02/13/17 at 19:00 Acetaminophen (Tylenol Tab) 650 mg Q6H PRN PO PAIN LEVEL 1-3 OR FEVER; Start at 19:00 Acetaminophen/ Hydrocodone Bitart ([place] (5/325)) 1 tab Q6H PRN PO MODERATE PAIN LEVEL 4-6; Start 02/13/17 at 19:00 Morphine Sulfate (morphine) 2 mg Q4H PRN IV SEVERE PAIN LEVEL 7-10; Start 02/13 at 19:00 Albuterol (Ventolin Hfa) 2 puff Q6H PRN INH WHEEZING AND SOB; Start 02/13/17 at 19:00 Atorvastatin Calcium (Lipitor) 80 mg HS PO Last administered on 02/14/17 21:00 ; Admin Dose 80 MG; Start 02/13/17 at 21:00 Calcitriol (Rocaltrol) 0.25 mcg DAILY PO Last administered on 02/14/17 08:40; Admin Dose 0.25 MCG; Start 02/14/17 at 09:00 Carvedilol (Coreg) 25 mg BID PO Last administered on 02/14/17 21:01; Admin Dose 25 MG; Start 02/13/17 at 21:00 EZETIMIBE (Zetia) 10 mg DAILY PO Last administered on 02/14/17 08:39; Admin Dose 10 MG; Start 02/14/17 at 09:00 Ferrous Sulfate (Ferrous Sulfate (Ec)) 325 mg BID PO Last administered on 21:00; Admin Dose 325 MG; Start 02/13/17 at 21:00 Finasteride (Proscar) 5 mg DAILY PO Last administered on 02/14/17 08:37; Admin Dose 5 MG; Start 02/14/17 at 09:00 Gabapentin (Neurontin) 300 mg QHS PO Last administered on 02/14/17 21:00; Admin Dose 300 MG; Start 02/13/17 at 21:00 Insulin Glargine (Lantus) 40 unit HS SC Last administered on 02/14/17 21:03; Admin Dose 40 UNIT; Start 02/13/17 at 21:00 Lisinopril (Zestril) 2.5 mg DAILY PO Last administered on 02/14/17 08:38; Admin Dose 2.5 MG; Start 02/14/17 at 09:00 Nitroglycerin (Nitroglycerin (Sl Tab) 0.4 Mg) 1 tab [id number] PRN SL CHEST PAIN ; Start 02/13/17 at 19:00 Pantoprazole (Protonix Tab) 40 mg DAILY PO Last administered on 02/14/17 08:39 ; Admin Dose 40 MG; Start 02/14/17 at 09:00 Tamsulosin HCl (Flomax) 0.4 mg DAILY PO Last administered on 02/14/17 08:38; Admin Dose 0.4 MG; Start 02/14/17 at 09:00 Ticagrelor (Brilinta) 90 mg Q12 PO Last administered on 02/14/17 21:02; Admin Dose 90 MG; Start 02/13/17 at 21:00 Miscellaneous Information 1 ea NOTE XX ; Start 02/13/17 at 19:30 Glucose (Glutose) 15 gm Q15M PRN PO DECREASED GLUCOSE; Start 02/13/17 at 19:30 Glucose (Glutose) 22.5 gm Q15M PRN PO DECREASED GLUCOSE; Start 02/13/17 at 19: 30 Dextrose (D50w Syringe) 25 ml Q15M PRN IV DECREASED GLUCOSE; Start 02/13/17 at 19:30 Dextrose (D50w Syringe) 50 ml Q15M PRN IV DECREASED GLUCOSE; Start 02/13/17 at 19:30 Glucagon (Glucagen) 1 mg Q15M PRN IM DECREASED GLUCOSE; Start 02/13/17 at 19:30 Glucose (Glutose) 15 gm Q15M PRN BUCCAL DECREASED GLUCOSE; Start 02/13/17 at 19 :30 Diagnostic Test (Pha) (Accu-Chek) 1 ea 02 XX ; Start 02/15/17 at 02:00 Docusate Sodium (Colace) 100 mg BID PO Last administered on 02/14/17t 21:00; Admin Dose 100 MG; Start 02/14/17 at 21:00 MARVIN YI MD Feb 14, 2017 22:28
[2017-02-15] VITALS (15 sets, daily range): BP systolic 112–131; BP diastolic 56–62; PULSE 60–76; RESP 17–22
[2017-02-15] MEDS ORDERED: ACCU-CHEK XX SCH (02:00)
[2017-02-15] MEDS: ACCU-CHEK XX SCH (02:44)
[2017-02-15] MEDS: FUROSEMIDE 40 MG INJ IV SCH ×2 (06:13→17:24)
[2017-02-15 07:20] LABS: CALCIUM 9.1 mg/dl (8.4-10.2); CREATININE 2.75 mg/dl (0.61-1.24); MAGNESIUM 2.5 mg/dl (1.7-2.5); PHOSPHORUS 4.6 mg/dl (2.5-4.9)
[2017-02-15] MEDS: INSULIN ASPART [NOVOLOG] 3 ML PEN SC SCH ×4 (07:29→20:50)
--- NOTE | 2017-02-15 07:49 | CONS ---
DATE OF ADMISSION: 02/13/2017 DATE OF CONSULTATION: 02/14/2017 REASON FOR CONSULTATION: Chronic kidney disease. REQUESTING PHYSICIAN: . HISTORY OF PRESENT ILLNESS: This is a 71-year-old male with a past medical history of CKD stage 4 with estimated GFR around 20- 25 mL/minute, history of COPD, coronary artery disease, history of CABG, hypertension, neuropathy, BPH, who presents to [facility] with shortness of breath. The patient denies any fevers, chills, nausea, vomiting. Upon arrival to the emergency room, the patient had a chest x-ray, and a CT abdomen which showed findings of gallstones, cardiomegaly, pericardial effusion, bilateral pleural effusions, large prostate, and severe old compression fracture. Chest x-ray shows pulmonary vascular congestion, pleural effusions. In the emergency room patient was given diuretic therapy and admitted to telemetry. In terms of patient's renal history, patient has baseline CKD stage 4, with previous creatinine around 2.3-2.5 mg/dL. The patient's current creatinine is below previous baseline. There has been no reports of hemoptysis, hematemesis, hematochezia. PAST MEDICAL HISTORY: As stated above. History of chronic kidney disease stage 4, history of CHF, coronary artery disease, diabetes and hypertension, peripheral vascular disease. PAST SURGICAL HISTORY: Status post CABG, status post cardiac stent. FAMILY HISTORY: Noncontributory. SOCIAL HISTORY: Does not drink, smoke, or do drugs. MEDICATION: Reviewed. REVIEW OF SYSTEMS: A 14-point review of systems was conducted. Pertinent positives as stated in HPI, otherwise negative. PHYSICAL EXAMINATION: VITAL SIGNS: Blood pressure 118/58, respirations 18, pulse 66, temperature 98.2. HEENT: Head is normocephalic. NECK: Supple. HEART: Regular rate. LUNGS: Show diminished breath sounds at the base. Positive crackles. ABDOMEN: Soft. Nontender to palpation. No rebound or guarding. EXTREMITIES: Negative for clubbing, cyanosis. Positive edema. DERMATOLOGIC: Clean. No rashes. MUSCULOSKELETAL: No joint effusion. NEUROLOGIC: No change in exam. LABORATORY: Showed a white count 8.5, hemoglobin 9.2, hematocrit 29.5, platelet count 199. Sodium 145, potassium 3.8, chloride 105, BUN 62, creatinine 3.01. Imaging studies reviewed. Urinalysis shows +1 hemoglobin. IMPRESSION AND PLAN: This is a 71-year-old male who presents with: 1. Nonoliguric acute kidney injury on top of chronic kidney disease stage 4, with previous EGFR around 20-25 mL/minute. Previous creatinine around 2-2.5 mg/dL. Etiology of current acute kidney injury may be secondary to cardiorenal syndrome. The patient is clinically decompensated with lower extremity edema and pulmonary congestion. Plan at this point is to continue diuretic therapy. We will continue supportive care. Renally dose medications. Avoid nephrotoxins. The patient's urinalysis was reviewed. No evidence of active sediment. Will continue to monitor closely. 2. Acute congestive heart failure exacerbation. Continue current medical management. Continue current diuretic therapy. Follow up with Cardiology. 3. Anemia. Monitor H and H levels. 4. Mineral bone disorder. Monitor calcium and phosphorus levels. 5. History of coronary artery disease status post percutaneous coronary intervention. Continue medical management. 6. Hypertension. Continue current blood pressure regimen. 7. Diabetes. Continue current insulin regimen. 8. Benign prostatic hypertrophy. Continue Flomax, Proscar. 9. Peripheral vascular disease status post bypass. Continue current treatment plan. 10. History of sleep apnea. Thank you, for this interesting consult. It will be a pleasure to follow patient with you throughout the hospital course. Dictated By: Shreyas Farmer DO /masoud/kim /Document#: [id number]
[2017-02-15] MEDS: CALCITRIOL 0.25 MCG CAP PO SCH (08:14)
[2017-02-15] MEDS: EZETIMIBE 10 MG TAB PO SCH (08:15)
[2017-02-15] MEDS: PANTOPRAZOLE (EC) 40 MG TAB PO SCH (08:16)
[2017-02-15] MEDS: FINASTERIDE 5 MG TAB PO SCH (08:16)
[2017-02-15] MEDS: TAMSULOSIN (SR) 0.4 MG CAP PO SCH (08:16)
[2017-02-15] MEDS: FERROUS SULFATE (EC) 325 MG TAB PO SCH ×2 (08:17→20:39)
[2017-02-15] MEDS: LISINOPRIL 5 MG TAB PO SCH (08:18)
[2017-02-15] MEDS: DOCUSATE SODIUM 100 MG CAP PO SCH ×2 (09:00→20:39)
[2017-02-15] MEDS: HEPARIN 5,000 UNIT/0.5 ML VIAL SC SCH ×2 (09:00→20:45)
[2017-02-15] MEDS: TICAGRELOR 90 MG TABLET PO SCH ×2 (09:00→20:45)
--- NOTE | 2017-02-15 10:11 | PN ---
DATE: 02/15/2017 SUBJECTIVE DATA: The patient is stable. No events overnight. No fevers, chills, nausea, vomiting. No shortness of breath. OBJECTIVE DATA: VITAL SIGNS: Blood pressure is 117/62, respirations 20, pulse 64, temperature 98.6. HEENT: Head is normocephalic. NECK: Supple. HEART: Regular rate. LUNGS: Diminished breath sounds at the base. ABDOMEN: Soft. Nontender to palpation. No rebound or guarding. EXTREMITIES: Negative for clubbing, cyanosis. No edema. DERMATOLOGIC: No rashes. MUSCULOSKELETAL: No joint effusion. NEUROLOGIC: Unchanged exam. MEDICATIONS: Reviewed. LABORATORY DATA: Shows sodium 145, potassium 4.0, BUN 64, creatinine 2.75. White count 8.5. Number 9.2, hematocrit 29.5, platelet count is 199. ASSESSMENT AND PLAN: 1. Nonoliguric acute kidney injury on top of chronic kidney disease stage 4. Previous EGFR around 20 to 25 monofilament a previous creatinine 2.5 mg/dL. Etiology of current acute kidney injury secondary to cardiorenal syndrome. The patient's renal function appears to be improving with diuretic therapy. At this point, continue current treatment. Supportive care. Renally dose all medications. 2. Acute congestive heart failure exacerbation. Continue current medical management. Continue current diuretic regimen. 3. Anemia. Monitor H and H levels. 4. Mineral bone disorder. Monitor calcium and phosphorus. 5. History of chronic disease, status post percutaneous coronary intervention. Continue medical management. 6. Hypertension. Continue current blood pressure regimen. 7. Diabetes. Continue current insulin regimen. 8. Benign prostatic hypertrophy. Continue Flomax. 9. Peripheral vascular disease, status post bypass. Continue current treatment plan. 10. History of sleep apnea. Dictated By: Shreyas Farmer DO /masoud/quincy /Document#: [id number]
--- NOTE | 2017-02-15 11:26 | PN ---
Date/Time of Note Date/Time of Note DATE: 02/15/17 TIME: 11:24 Assessment/Plan VTE Prophylaxis VTE Prophylaxis Intervention: SCD's Lines/Catheters IV [facility]from [facility] Saline Lock Urinary Cath still in place: No Assessment/Plan Chief Complaint/Hosp Course 1. Congestive heart failure exacerbation, systolic, acute on chronic, known LVEF 20-25% -Continue diuresis/ACEI/Statin.Hold BB 2/2 heart block 2. Ischemic cardiomyopathy -Continue medical management. 3.Pleural effusion, Moderate. -Attempt US guided thoracentesis if significant amount of fluids present 3. Coronary artery disease, s/p PCI/stents -Continue Brilinta, antihypertensives and statin. 4. Aortic stenosis -Monitor careful afterload reduction - F/u Repeat echo 5. Hypertension, controlled -continue antihypertensives 6. Dyslipidemia -on Zetia 7. Type 2 Diabetes mellitus. A1C 7.9. Stable blood glucose. -Accuchecks,ISS,Lantus 8. Chronic kidney disease, stage 4.Stable renal fxn -Nephrology on board Monitor renal fxn closely-Renally dose meds. 9. Benign prostate hyperplasia - on flomax and proscar 10. Peripheral vascular disease - status post bilateral lower extremity bypass surgery -Continue antiplatelets 11. Carotid stenosis - bilateral 50-69% on carotid Doppler January 2015 -Monitor 12. History of stroke. no present issues 13. Sleep apnea. -Recommend outpt sleep study -CPAP PRN 14.Complete HB,Asymptomatic. -Cardiology consult. -12 lead EKG. PLAN:Continue current medical management. Patient was seen in collaboration with . Problems: Subjective 24 Hr Interval Summary Free Text/Dictation Had episode of complete HB per staff. Patient asymptomatic. Exam/Review of Systems Vital Signs Vitals Vital Signs Date Time Temp Pulse Resp B/P Pulse Ox O2 Delivery O2 Flow Rate FiO2 02/15/17 08:07 68 02/15/17 07:23 98.6 20 117/62 100 02/15/17 06:15 Nasal Cannula 3.0 02/15/17 03:03 30 Intake and Output 02/14/17 02/14/17 02/15/17 15:00 23:00 07:00 Intake Total 450 ml 400 ml Output Total 950 ml 1000 ml Balance -500 ml -600 ml Exam General: Well developed male, not in any acute distress . HEENT: Normocephalic, Atraumatic, No laceration or hematoma; Eyes: PEERL, Conjunctiva clear, Anicteric sclera Neck: Supple without any lymphadenopathy, nontender, no JVD, no carotid bruits, trachea midline, no thyromegaly Cardiac: S1, S2 auscultated, regular rhythm and rate, no mumurs or gallop Pulmonary: Diminished bibasilar. Mildly increased work of breathing. Crackles+ upper lobes GI: Abdomen normal to inspection. Soft, non- distended, no masses, no rebound tenderness or guarding. Bowel sounds active on all four quadrants Genitourinary: Deferred Extremities: No cyanosis, clubbing, or edema. Pulses [2+] bilaterally. Full ROM on all four extremities. No focal weakness appreciated. Neurologic: Alert to person, place, time, and situation. Affect appropriate, intact sensation. Skin: Clean,dry, and intact. No ecchymosis, no rashes, or lesions Results Result Diagram: 02/14/17 0644 02/15/17 0630 Results 24 hrs Laboratory Tests Test 02/14/17 11:57 02/14/17 17:11 02/14/17 19:00 02/14/17 20:59 Bedside Glucose 131 120 163 Urine Color STRAW Urine Clarity CLEAR Urine pH 6.0 Urine Specific [employer] 1.008 Urine Ketones NEGATIVE Urine Nitrite NEGATIVE Urine Bilirubin NEGATIVE Urine Urobilinogen 1+ H Urine Leukocyte Esterase NEGATIVE Urine Hemoglobin NEGATIVE Urine Random Creatinine 29.81 Urine Random Sodium 97 H Urine Glucose NEGATIVE Urine Total Protein 16.0 H Test 02/15/17 02:31 02/15/17 06:30 02/15/17 07:28 Bedside Glucose 134 110 Sodium Level 145 H Potassium Level 4.0 Chloride Level 105 Carbon Dioxide Level 28 Anion Gap 16 Blood Urea Nitrogen 64 H Creatinine 2.75 H Glucose Level 110 Calcium Level 9.1 Phosphorus Level 4.6 Magnesium Level 2.5 Troponin I 0.043 Medications Medications Current Medications Ondansetron HCl (Zofran Inj) 4 mg Q6H PRN IV NAUSEA AND/OR VOMITING Last administered on 02/13/17t 22:27; Admin Dose 4 MG; Start 02/13/17 at 19:00 Acetaminophen (Tylenol Tab) 650 mg Q6H PRN PO PAIN LEVEL 1-3 OR FEVER; Start at 19:00 Acetaminophen/ Hydrocodone Bitart ([place] (5/325)) 1 tab Q6H PRN PO MODERATE PAIN LEVEL 4-6; Start 02/13/17 at 19:00 Morphine Sulfate (morphine) 2 mg Q4H PRN IV SEVERE PAIN LEVEL 7-10; Start 02/13 at 19:00 Albuterol (Ventolin Hfa) 2 puff Q6H PRN INH WHEEZING AND SOB; Start 02/13/17 at 19:00 Atorvastatin Calcium (Lipitor) 80 mg HS PO Last administered on 02/14/17 21:00 ; Admin Dose 80 MG; Start 02/13/17 at 21:00 Calcitriol (Rocaltrol) 0.25 mcg DAILY PO Last administered on 02/15/17 08:14; Admin Dose 0.25 MCG; Start 02/14/17 at 09:00 Carvedilol (Coreg) 25 mg BID PO Last administered on 02/15/17 08:18; Admin Dose 25 MG; Start 02/13/17 at 21:00 EZETIMIBE (Zetia) 10 mg DAILY PO Last administered on 02/15/17 08:15; Admin Dose 10 MG; Start 02/14/17 at 09:00 Ferrous Sulfate (Ferrous Sulfate (Ec)) 325 mg BID PO Last administered on 08:17; Admin Dose 325 MG; Start 02/13/17 at 21:00 Finasteride (Proscar) 5 mg DAILY PO Last administered on 02/15/17 08:16; Admin Dose 5 MG; Start 02/14/17 at 09:00 Gabapentin (Neurontin) 300 mg QHS PO Last administered on 02/14/17 21:00; Admin Dose 300 MG; Start 02/13/17 at 21:00 Insulin Glargine (Lantus) 40 unit HS SC Last administered on 02/14/17 21:03; Admin Dose 40 UNIT; Start 02/13/17 at 21:00 Lisinopril (Zestril) 2.5 mg DAILY PO Last administered on 02/15/17 08:18; Admin Dose 2.5 MG; Start 02/14/17 at 09:00 Nitroglycerin (Nitroglycerin (Sl Tab) 0.4 Mg) 1 tab [id number] PRN SL CHEST PAIN ; Start 02/13/17 at 19:00 Pantoprazole (Protonix Tab) 40 mg DAILY PO Last administered on 02/15/17 08:16 ; Admin Dose 40 MG; Start 02/14/17 at 09:00 Tamsulosin HCl (Flomax) 0.4 mg DAILY PO Last administered on 02/15/17 08:16; Admin Dose 0.4 MG; Start 02/14/17 at 09:00 Ticagrelor (Brilinta) 90 mg Q12 PO Last administered on 02/14/17 21:02; Admin Dose 90 MG; Start 02/13/17 at 21:00 Miscellaneous Information 1 ea NOTE XX ; Start 02/13/17 at 19:30 Glucose (Glutose) 15 gm Q15M PRN PO DECREASED GLUCOSE; Start 02/13/17 at 19:30 Glucose (Glutose) 22.5 gm Q15M PRN PO DECREASED GLUCOSE; Start 02/13/17 at 19: 30 Dextrose (D50w Syringe) 25 ml Q15M PRN IV DECREASED GLUCOSE; Start 02/13/17 at 19:30 Dextrose (D50w Syringe) 50 ml Q15M PRN IV DECREASED GLUCOSE; Start 02/13/17 at 19:30 Glucagon (Glucagen) 1 mg Q15M PRN IM DECREASED GLUCOSE; Start 02/13/17 at 19:30 Glucose (Glutose) 15 gm Q15M PRN BUCCAL DECREASED GLUCOSE; Start 02/13/17 at 19 :30 Diagnostic Test (Pha) (Accu-Chek) 1 ea 02 XX Last administered on 02/15/17 02: 44; Admin Dose 1 EA; Start 02/15/17 at 02:00 Docusate Sodium (Colace) 100 mg BID PO Last administered on 02/14/17 21:00; Admin Dose 100 MG; Start 02/14/17 at 21:00 Heparin Sodium (Porcine) (Heparin (5000 Units/0.5 ml)) 5,000 unit BID SC ; Start 02/15/17 at 09:00 CONCEPCION CLINE NP Feb 15, 2017 11:26
[2017-02-15] MEDS ORDERED: LIDOCAINE 1% (MPF) 5 ML VIAL ONE (11:29)
[2017-02-15 12:09] LABS: FLD MN% 31.5 %; FLD PMN% 68.5 %; FLD RBC 3 /uL; FLD WBC 422 /cmm
[2017-02-15 12:14] LABS: FLUID LD 393 U/L; FLUID TYPE THORACENTESIS FLUID
[2017-02-15 12:15] LABS: FLUID GLUCOSE 106 mg/dl; FLUID TOTAL PROTEIN < 2.0 g/dl; FLUID TYPE THORACENTESIS FLUID
[2017-02-15 12:46] LABS: FLD TYPE THORACENTHESIS
--- NOTE | 2017-02-15 12:46 | RADRPT ---
PROCEDURE: US guided right thoracentesis. CLINICAL INDICATION: Shortness of breath. Right pleural effusion. TECHNIQUE: Prior to the procedure, informed consent was obtained. The risks, benefits, and alternatives were e xplained to the patient or the patient's family, including but not limited to bleeding, infection, p ain, visceral or vascular damage, shock, pneumothorax, chest tube placement, air embolism, and . The patient or the patient's family understood the risks and the alternatives and wished to proce ed with the study. Informed written consent was obtained. A procedural pause was performed. The patient's name, date of , and procedure to be performed were verified. Ultrasound of the right hemithorax was performed in the axial and sagittal planes. A right pleural e ffusion is noted. Utilizing ultrasound guidance, optimal location for entry to the pleural cavity wa s ascertained. The overlying skin was prepped and draped in the usual sterile fashion. Approximate ly 10 ml of 1% Xylocaine was injected locally for pain control. Using ultrasound guidance, a 5-Fren Yueh catheter was introduced into the right pleural space without difficulty. Fluid was aspirated . COMPARISON: None. FINDINGS: Initial ultrasound demonstrates fluid in the right pleural space. Approximately 0.850 liters of ser ous fluid was aspirated and sent to the laboratory. IMPRESSION: 1. Satisfactory ultrasound-guided right thoracentesis. RPTAT: QQ .Camden Verduzco MD, Date Time Electronically viewed and signed by .Camden Verduzco MD, on 02/15/2017 12:45 .R/
[2017-02-15 12:47] LABS: FLD CLARITY SLIGHTLY CLOUDY; FLD COLOR YELLOW
--- NOTE | 2017-02-15 13:41 | RADRPT ---
PROCEDURE: XR Chest. CLINICAL INDICATION: Shortness of breath. Post right thoracentesis. TECHNIQUE: Single frontal view. COMPARISON: 02/13/2017 mendy FINDINGS: The lungs are clear. The heart size is normal. There is no pleural effusion. There is no pneumothorax. IMPRESSION: 1. Normal chest radiograph. 2. No pneumothorax. RPTAT: QQ .Camden Verduzco MD, MD Date Time Electronically viewed and signed by .Camden Verduzco MD, MD on 02/15/2017 13:41 .R/
[2017-02-15 14:12] LABS: MICROALBUMIN 1.8 mg/dL
--- NOTE | 2017-02-15 15:28 | CONS ---
Date/Time of Note Date/Time of Note DATE: 02/15/17 TIME: 15:12 Assessment/Plan Assessment/Plan Chief Complaint/Hosp Course Assessment: Complete heart block and 2:1 AV block - now back in normal sinus rhythm with 1: 1 AV conduction Acute decompensated systolic heart failure Pleural effusion - status post right thoracentesis 02/15/2017 Cardiomyopathy, LVEF 20-25% - likely combination of ischemic and valvular etiologies Severe aortic stenosis Coronary artery disease - history of multiple myocardial infarctions and coronary stents, most recently to the left anterior descending artery ( February 2016, [facility]) Hypertension Dyslipidemia Diabetes mellitus, insulin-dependent Acute kidney injury on chronic kidney disease Benign prostate hyperplasia Peripheral vascular disease - status post bilateral lower extremity bypass surgery Carotid stenosis - bilateral 50-69% on carotid Doppler January 2015 History of stroke Aspirin allergy - patient reports severe reaction with airway compromise Recommendations: -discussed risks and benefits of permanent pacemaker, including risk for syncope or cardiac arrest without a pacemaker - patient understands and declines pacemaker -overall, complex and difficult situation -patient reports being previously determined not to be a candidate for coronary artery bypass graft surgery due to lack of venous grafts -patient not a candidate for percutaneous coronary intervention due to severe aspirin allergy -without option for coronary revascularization, patient is not a candidate for aortic valve replacement -consideration for hospice -discontinue carvedilol, continue lisinopril 2.5mg daily and up titrate as needed/tolerated -continue diuresis with IV Lasix 40mg BID - cautious in setting of severe aortic stenosis -continue ticagrelor 90mg BID -continue atorvastatin 80mg daily Problems: Consultation Date/Type/Reason Admit Date/Time Feb 13, 2017 at 14:15 Type of Consultation: Cardiology Hx of Present Illness The patient is a 71 year-old male with ischemic cardiomyopathy (LVEF 20-25%) and severe aortic stenosis who presents with worsening shortness of breath and hypoxia (home pulse oximetry noted to be in the 80s). He is noted to have pulmonary vascular congestion and pleural effusions on chest x-ray[place] [address], consistent with decompensated heart failure. He had right thoracentesis with removal of 850 cc, and has been diuresing on IV Lasix. His shortness of breath has improved. On telemetry monitoring, he was noted to have an episode of complete heart block with an approximately 1.2 second pause between QRS complexes. He also had a separate episode of 2:1 AV block. He was asymptomatic during these episodes and blood pressures remained stable. He denies any presyncope or syncope. He has a history of coronary artery disease and multiple myocardial infarctions. He was previously recommended to have coronary artery bypass graft surgery, but the patient reports having been evaluated at [facility] and determined not to be a candidate for surgical revascularization due to lack of suitable venous grafts. He has had multiple coronary stent implantations, most recently to the left anterior descending artery in February 2016 at [facility]. However, the patient does report having a severe aspirin allergy with airway compromise, so he is only on ticagrelor. 14 point review of systems negative other than per HPI. Past Medical History Chronic systolic heart failure Cardiomyopathy, LVEF 20-25% - likely combination of ischemic and valvular etiologies Severe aortic stenosis Coronary artery disease - history of multiple myocardial infarctions and coronary stents, most recently to the left anterior descending artery ( February 2016, [facility]) Hypertension Dyslipidemia Diabetes mellitus, insulin-dependent Chronic kidney disease Benign prostate hyperplasia Peripheral vascular disease - status post bilateral lower extremity bypass surgery Carotid stenosis - bilateral 50-69% on carotid Doppler January 2015 History of stroke Aspirin allergy - patient reports severe reaction with airway compromise Past Surgical History Past Surgical Hx: appendectomy, other (bilateral lower extremity bypass surgery , right great toe amputation) Family History Significant Family History: no pertinent family hx Social History Alcohol Use: none Smoking Status: Former smoker (quit over 20 years ago) Drug Use: none Exam/Review of Systems Vital Signs Vitals Vital Signs Date Time Temp Pulse Resp B/P Pulse Ox O2 Delivery O2 Flow Rate FiO2 02/15/17 12:31 60 02/15/17 12:01 97.2 17 112/56 99 02/15/17 12:00 Nasal Cannula 4.0 02/15/17 03:03 30 Intake and Output 02/14/17 02/14/17 02/15/17 15:00 23:00 07:00 Intake Total 450 ml 400 ml Output Total 950 ml 1000 ml Balance -500 ml -600 ml Exam Constitutional: alert, well developed Psych: nl mood/affect, no complaints Head: atraumatic, normocephalic Eyes: nl conjunctiva, nl lids ENMT: nl external ears & nose, nl nasal mucosa & septum Neck: non-tender, supple Respiratory: clear to auscultation Cardiovascular: regular rate and rhythm, systolic murmur Gastrointestinal: non-tender, soft Musculoskeletal: nl extremities to inspection Extremities: No clubbing, No cyanosis, No edema Neurological: nl mental status, nl speech Results Result Diagram: 02/14/17 0644 02/15/17 0630 Results 24 hrs Laboratory Tests Test 02/14/17 17:11 02/14/17 19:00 02/14/17 20:59 02/15/17 02:31 Bedside Glucose 120 163 134 Urine Color STRAW Urine Clarity CLEAR Urine pH 6.0 Urine Specific [place] 1.008 Urine Ketones NEGATIVE Urine Nitrite NEGATIVE Urine Bilirubin NEGATIVE Urine Urobilinogen 1+ H Urine Leukocyte Esterase NEGATIVE Urine Hemoglobin NEGATIVE Urine Random Creatinine 39 Urine Random Sodium 97 H Urine Microalbumin 1.8 Urine Microalbumin/Creatinine Ratio 46 H Urine Glucose NEGATIVE Urine Total Protein 16.0 H Test 02/15/17 06:30 02/15/17 07:28 02/15/17 11:10 02/15/17 12:09 Sodium Level 145 H Potassium Level 4.0 Chloride Level 105 Carbon Dioxide Level 28 Anion Gap 16 Blood Urea Nitrogen 64 H Creatinine 2.75 H Glucose Level 110 Calcium Level 9.1 Phosphorus Level 4.6 Magnesium Level 2.5 Troponin I 0.043 Bedside Glucose 110 107 Body Fluid Type THORACENTESIS FLUID Body Fluid Volume 900.0 Body Fluid Color YELLOW Body Fluid Appearance SLIGHTLY CLOUDY Body Fluid WBC 422 Body Fluid RBC (Auto) 3 Body Fluid Polynuclear WBCs (%) 68.5 Body Fluid Mononuclear Cells % Auto 31.5 Body Fluid Glucose 106 Body Fluid Total Protein < 2.0 Body Fluid Lactate Dehydrogenase 393 Medications Medications Current Medications Ondansetron HCl (Zofran Inj) 4 mg Q6H PRN IV NAUSEA AND/OR VOMITING Last administered on 02/13/17t 22:27; Admin Dose 4 MG; Start 02/13/17 at 19:00 Acetaminophen (Tylenol Tab) 650 mg Q6H PRN PO PAIN LEVEL 1-3 OR FEVER; Start at 19:00 Acetaminophen/ Hydrocodone Bitart ([place] (5/325)) 1 tab Q6H PRN PO MODERATE PAIN LEVEL 4-6; Start 02/13/17 at 19:00 Morphine Sulfate (morphine) 2 mg Q4H PRN IV SEVERE PAIN LEVEL 7-10; Start 02/13 at 19:00 Albuterol (Ventolin Hfa) 2 puff Q6H PRN INH WHEEZING AND SOB; Start 02/13/17 at 19:00 Atorvastatin Calcium (Lipitor) 80 mg HS PO Last administered on 02/14/17 21:00 ; Admin Dose 80 MG; Start 02/13/17 at 21:00 Calcitriol (Rocaltrol) 0.25 mcg DAILY PO Last administered on 02/15/17 08:14; Admin Dose 0.25 MCG; Start 02/14/17 at 09:00 Carvedilol (Coreg) 25 mg BID PO Last administered on 02/15/17 08:18; Admin Dose 25 MG; Start 02/13/17 at 21:00 EZETIMIBE (Zetia) 10 mg DAILY PO Last administered on 02/15/17 08:15; Admin Dose 10 MG; Start 02/14/17 at 09:00 Ferrous Sulfate (Ferrous Sulfate (Ec)) 325 mg BID PO Last administered on 08:17; Admin Dose 325 MG; Start 02/13/17 at 21:00 Finasteride (Proscar) 5 mg DAILY PO Last administered on 02/15/17 08:16; Admin Dose 5 MG; Start 02/14/17 at 09:00 Gabapentin (Neurontin) 300 mg QHS PO Last administered on 02/14/17 21:00; Admin Dose 300 MG; Start 02/13/17 at 21:00 Insulin Glargine (Lantus) 40 unit HS SC Last administered on 02/14/17 21:03; Admin Dose 40 UNIT; Start 02/13/17 at 21:00 Lisinopril (Zestril) 2.5 mg DAILY PO Last administered on 02/15/17 08:18; Admin Dose 2.5 MG; Start 02/14/17 at 09:00 Nitroglycerin (Nitroglycerin (Sl Tab) 0.4 Mg) 1 tab [id number] PRN SL CHEST PAIN ; Start 02/13/17 at 19:00 Pantoprazole (Protonix Tab) 40 mg DAILY PO Last administered on 02/15/17 08:16 ; Admin Dose 40 MG; Start 02/14/17 at 09:00 Tamsulosin HCl (Flomax) 0.4 mg DAILY PO Last administered on 02/15/17 08:16; Admin Dose 0.4 MG; Start 02/14/17 at 09:00 Ticagrelor (Brilinta) 90 mg Q12 PO Last administered on 02/14/17 21:02; Admin Dose 90 MG; Start 02/13/17 at 21:00 Miscellaneous Information 1 ea NOTE XX ; Start 02/13/17 at 19:30 Glucose (Glutose) 15 gm Q15M PRN PO DECREASED GLUCOSE; Start 02/13/17 at 19:30 Glucose (Glutose) 22.5 gm Q15M PRN PO DECREASED GLUCOSE; Start 02/13/17 at 19: 30 Dextrose (D50w Syringe) 25 ml Q15M PRN IV DECREASED GLUCOSE; Start 02/13/17 at 19:30 Dextrose (D50w Syringe) 50 ml Q15M PRN IV DECREASED GLUCOSE; Start 02/13/17 at 19:30 Glucagon (Glucagen) 1 mg Q15M PRN IM DECREASED GLUCOSE; Start 02/13/17 at 19:30 Glucose (Glutose) 15 gm Q15M PRN BUCCAL DECREASED GLUCOSE; Start 02/13/17 at 19 :30 Diagnostic Test (Pha) (Accu-Chek) 1 ea 02 XX Last administered on 02/15/17 02: 44; Admin Dose 1 EA; Start 02/15/17 at 02:00 Docusate Sodium (Colace) 100 mg BID PO Last administered on 02/14/17 21:00; Admin Dose 100 MG; Start 02/14/17 at 21:00 Heparin Sodium (Porcine) (Heparin (5000 Units/0.5 ml)) 5,000 unit BID SC ; Start 02/15/17 at 09:00 MELONY BRITO MD Feb 15, 2017 15:23
[2017-02-15] MEDS: ATORVASTATIN 80 MG TAB PO SCH (20:40)
[2017-02-15] MEDS: GABAPENTIN 300 MG CAP PO SCH (20:40)
[2017-02-15] MEDS: INSULIN GLARGINE [LANtus] 3 ML PEN SC SCH (20:46)
[2017-02-16] VITALS (9 sets, daily range): BP systolic 110–145; BP diastolic 47–76; PULSE 61–68; RESP 18
[2017-02-16] MEDS: ACCU-CHEK XX SCH (02:00)
[2017-02-16] MEDS: FUROSEMIDE 40 MG INJ IV SCH (06:15)
[2017-02-16 07:04] LABS: BASOPHILS % 0.5 % (0.0-2.0); EOSINOPHILS # 0.4 10^3/ul (0.0-0.5); EOSINOPHILS % 5.3 % (0.0-7.0); HEMATOCRIT 31.8 % (42.0-52.0); HEMOGLOBIN 9.8 g/dl (14.0-18.0); LYMPHOCYTES # 1.5 10^3/ul (0.8-2.9); LYMPHOCYTES % 17.4 % (15.0-51.0); MEAN CORPUSCULAR HEMOGLOBIN 27.2 pg (29.0-33.0); MEAN CORPUSCULAR HGB CONC 30.8 g/dl (32.0-37.0); MEAN CORPUSCULAR VOLUME 88.3 fl (82.0-101.0); MEAN PLATELET VOLUME 11.2 fl (7.4-10.4); MONOCYTE # 0.7 10^3/ul (0.3-0.9); MONOCYTES % 8.6 % (0.0-11.0); NEUTROPHIL # 5.7 10^3/ul (1.6-7.5); NEUTROPHILS % 67.8 % (39.0-77.0); PLATELET COUNT 257 10^3/UL (140-415); RED CELL DISTRIBUTION WIDTH 16.2 % (11.5-14.5); WHITE BLOOD COUNT 8.3 10^3/ul (4.8-10.8)
[2017-02-16] MEDS: INSULIN ASPART [NOVOLOG] 3 ML PEN SC SCH ×2 (07:19→11:30)
[2017-02-16 07:23] LABS: CALCIUM 9.2 mg/dl (8.4-10.2); CREATININE 2.78 mg/dl (0.61-1.24); POTASSIUM 3.5 mmol/L (3.5-5.1)
[2017-02-16] MEDS: TICAGRELOR 90 MG TABLET PO SCH (08:14)
[2017-02-16] MEDS: HEPARIN 5,000 UNIT/0.5 ML VIAL SC SCH (08:14)
[2017-02-16] MEDS: CALCITRIOL 0.25 MCG CAP PO SCH (08:15)
[2017-02-16] MEDS: EZETIMIBE 10 MG TAB PO SCH (08:15)
[2017-02-16] MEDS: DOCUSATE SODIUM 100 MG CAP PO SCH (08:15)
[2017-02-16] MEDS: FINASTERIDE 5 MG TAB PO SCH (08:15)
[2017-02-16] MEDS: PANTOPRAZOLE (EC) 40 MG TAB PO SCH (08:15)
[2017-02-16] MEDS: FERROUS SULFATE (EC) 325 MG TAB PO SCH (08:15)
[2017-02-16] MEDS: TAMSULOSIN (SR) 0.4 MG CAP PO SCH (08:15)
[2017-02-16] MEDS: LISINOPRIL 5 MG TAB PO SCH (08:16)
--- NOTE | 2017-02-16 11:12 | RADRPT ---
Vent Rate: 68 bpm RR Interval: 0 msec SC Interval: 150 msec QRS Duration: 92 msec QT Interval: 428 msec QTC Interval: 455 msec P-R-T [place]: 66 - 63 - 150 degrees Normal sinus rhythm Nonspecific T wave abnormality Abnormal ECG Electronically Signed By: Perfecto Atkins [id number]
--- NOTE | 2017-02-16 12:03 | PDOCDIS ---
Discharge Instructions CONDITION Patient Condition: Guarded HOME CARE INSTRUCTIONS: Diet Instructions: Regular FOLLOW UP/APPOINTMENTS Follow-up Plan 1.Follow up with primary care physician in 1 week If you don't have one please let someone know, we can give you resources that may help you pick one. You may also call your insurance company to assign one to you. Review your medication list with your nurse before leaving and if you need new prescriptions please let your nurse know. I may have made changes to your home medications or given you new prescriptions, please let your primary doctor know as well. Stay compliant with your medications and report any side effects to your PCP or pharmacist. Return to the ER if you have any concerns and cannot reach your doctors or call your insurance company, they usually have a nurse that can help you. 2. Call 911 or go to the nearest emergency room if experiencing loss of consciousness, dizziness, chest pain, shortness of breath, vomiting/abdominal pain, speech difficulties, motor weakness or any unusual symptoms. REFERRALS Other Referrals REFER TO PCP FOR POSSIBLE OUTPATIENT HOSPICE CONCEPCION DAN NP Feb 16, 2017 12:03
[2017-02-16] MEDS ORDERED: Furosemide IV (12:13)
[2017-02-16] MEDS ORDERED: FURO-110 PO (12:14)
--- NOTE | 2017-02-16 15:05 | DS ---
Date/Time of Note Date/Time of Note DATE: 02/16/17 TIME: 15:01 Discharge Summary Admission/Discharge Info Admit Date/Time Feb 13, 2017 at 14:15 Discharge Date/Time Discharge Diagnosis Acute decompensated systolic heart failure Complete heart block. Resolved back to normal sinus rhythm. Pleural effusion - status post right thoracentesis 02/15/2017 Cardiomyopathy, LVEF 20-25% -denied pacemaker Severe aortic stenosis, not a candidate for surgery as patient is not a candidate for coronary revascularization. Coronary artery disease Hypertension Dyslipidemia Diabetes mellitus, insulin-dependent Chronic kidney disease, stage IV Benign prostate hyperplasia Peripheral vascular disease - status post bilateral lower extremity bypass surgery Carotid stenosis - bilateral 50-69% on carotid Doppler January 2015 History of stroke Aspirin allergy Patient Condition: Stable Consults , cardiology ,Nephrology Procedures 2016. Ultrasound-guided right sided thoracentesis. Approximately 0.850 liters of serous fluid was aspirated and sent to the laboratory. Hospital Course This is a very unfortunate 71-year-old pleasant male with a past medical history of ischemic cardiomyopathy with known ejection fraction 20-25%, severe aortic stenosis, type 2 diabetes, BPH, chronic kidney disease stage IV, dyslipidemia, hypertension, coronary artery disease with a history of multiple myocardial infarction and coronary stents who is also not a candidate for bypass surgery, systolic heart failure, home oxygen use, carotid stenosis, stroke, peripheral vascular disease with status post bypass, who presented to the emergency room with worsening shortness of breath. In the emergency room, he was noted to have severe pulmonary vascular congestion and pleural effusion with a highly elevated BNP of 15,600. Patient was in decompensated heart failure upon arrival. He was admitted. Patient was resumed on his home medications. He was continued on home medications. Patient had also undergone thoracentesis with removal of 800 mL fluid from the right side. Fluids sent for studies. However, he was found with episode of complete heart block. Patient was not a candidate for continuation of beta-blockers. He was continued on lisinopril and Lasix as tolerated. He was evaluated by cardiology and nephrology. Renal function remained at baseline. Patient's symptoms improved. He was feeling back to his bed. Patient was discussed about risk and benefits of permanent pacemaker as well as the risk of syncope or cardiac arrest without a pacemaker. Patient decided not to proceed with pacemaker. At this time, patient condition appeared overall complex. He also has severe aspirin allergy. Patient was also not a candidate for aortic valve replacement without having an option for coronary revascularization. At this time, conservative medical management was advised. Patient was also an appropriate candidate for hospice. This was addressed to the patient. However, patient was not receptive to hospice at this time. He opted for DNR status. Patient was continued on Tegretol, statin , lisinopril and Lasix as tolerated. Disposition patient will be discharged home. Patient was recommended to follow- up with primary care physician in 1 week. Again, patient appears a good candidate for hospice evaluation and this was recommended for outpatient evaluation. POLST was signed and patient was kept DNR. She has home oxygen available. Approximately 60 minutes was spent in coordinating the discharge on this patient. Patient was seen in collaboration with [facility] Furosemide* (Lasix*) 20 Mg Tablet, 20 MG PO BID, #60 TAB Prov:CONCEPCION CLINE V. [employer] 02/16/17 Reported Medications Albuterol Sulfate* (Proair HFA*) 8.5 Gm Hfa.aer.ad, 2 PUFF INH Q6H Y for WHEEZING AND SOB, #1 INHALER 02/13/17 Mometasone-Formoterol (Dulera) 100-5 Mcg - 13 Gm Hfa.aer.ad, 2 PUFFS INHALATION BID, #1 INHALER 02/13/17 Insulin Lispro (Humalog Kwikpen) 200 Unit/1 Ml Insuln.pen, 0 SQ AC MEALS, EA 02/13/17 Lisinopril* (Lisinopril*) 2.5 Mg Tablet, 2.5 MG PO DAILY, #30 TAB 02/13/17 Ezetimibe* (Zetia*) 10 Mg Tablet, 10 MG PO DAILY, TAB 02/13/17 Ticagrelor* (Brilinta*) 90 Mg Tablet, 90 MG PO Q12, TAB 09/03/16 Pantoprazole* (Protonix*) 40 Mg Tablet.dr, 40 MG PO DAILY, TAB 09/03/16 Gabapentin* (Gabapentin*) 300 Mg Capsule, 300 MG PO QHS, #60 CAP 09/03/16 Finasteride* (Finasteride*) 5 Mg Tablet, 5 MG PO DAILY, TAB 09/03/16 Ferrous Sulfate* (Ferrous Sulfate*) 325 Mg Tabec, 325 MG PO BID, TAB 09/03/16 Insulin Glargine* (Lantus*) 100 Unit/Ml Soln, 40 UNIT SC HS, EA 01/24/15 Atorvastatin* (Atorvastatin*) 80 Mg Tablet, 80 MG PO HS, TAB 01/24/15 Calcitriol* (Rocaltrol*) 0.25 Mcg Capsule, 0.25 MCG PO DAILY, CAP 01/24/15 Tamsulosin Hcl* (Flomax*) 0.4 Mg Cap.er.24h, 0.4 MG PO DAILY, CAP 01/24/15 Nitroglycerin* (Nitrostat*) 0.4 Mg Tab.subl, 0.4 MG SL Q5MIN Y for CHEST PAIN, BOTTLE 01/24/15 Discontinued Reported Medications Furosemide* (Furosemide*) 20 Mg Tablet, 60 MG PO DAILY, #60 TAB 02/13/17 Carvedilol* (Coreg*) 25 Mg Tablet, 25 MG PO BID, TAB 01/24/15 Isosorbide Mononitrate* (Isosorbide Mononitrate*) 30 Mg Tab.er.24h, 30 MG PO DAILY, TAB 09/03/16 Insulin Lispro (Humalog) 100 Unit/1 Ml Cartridge, 5 UNIT SQ AC MEALS 09/03/16 Furosemide* (Lasix*) 40 Mg Tablet, 40 MG PO DAILY, TAB 09/03/16 Docusate Sodium* (Docusate Sodium*) 100 Mg Capsule, 100 MG PO BID, #60 CAP 09/03/16 Follow-up Plan HOME CARE INSTRUCTIONS: Diet Instructions: Regular FOLLOW UP/APPOINTMENTS Follow-up Plan 1.Follow up with primary care physician in 1 week If you don't have one please let someone know, we can give you resources that may help you pick one. You may also call your insurance company to assign one to you. Review your medication list with your nurse before leaving and if you need new prescriptions please let your nurse know. I may have made changes to your home medications or given you new prescriptions, please let your primary doctor know as well. Stay compliant with your medications and report any side effects to your PCP or pharmacist. Return to the ER if you have any concerns and cannot reach your doctors or call your insurance company, they usually have a nurse that can help you. 2. Call 911 or go to the nearest emergency room if experiencing loss of consciousness, dizziness, chest pain, shortness of breath, vomiting/abdominal pain, speech difficulties, motor weakness or any unusual symptoms. REFERRALS Other Referrals REFER TO PCP FOR POSSIBLE OUTPATIENT HOSPICE EVAL Primary Care Provider Not On Staff Doctor Pending Labs Laboratory Tests Test 02/15/17 17:18 02/15/17 20:39 02/16/17 06:01 02/16/17 07:18 Bedside Glucose 145mg/dL (70-220) 153mg/dL (70-220) 106mg/dL (70-220) White Blood Count 8.310^3/ul (4.8-10.8) Red Blood Count 3.6010^6/ul (4.70-6.10) Hemoglobin 9.8g/dl (14.0-18.0) Hematocrit 31.8% (42.0-52.0) Mean Corpuscular Volume 88.3fl (82.0-101.0) Mean Corpuscular Hemoglobin 27.2pg (29.0-33.0) Mean Corpuscular Hemoglobin Concent 30.8g/dl (32.0-37.0) Red Cell Distribution Width 16.2% (11.5-14.5) Platelet Count 79173^3/UL (140-415) Mean Platelet Volume 11.2fl (7.4-10.4) Neutrophils % 67.8% (39.0-77.0) Lymphocytes % 17.4% (15.0-51.0) Monocytes % 8.6% (0.0-11.0) Eosinophils % 5.3% (0.0-7.0) Basophils % 0.5% (0.0-2.0) Nucleated Red Blood Cells % 0.0/100WBC (0.0-0.0) Neutrophils # 5.710^3/ul (1.6-7.5) Lymphocytes # 1.510^3/ul (0.8-2.9) Monocytes # 0.710^3/ul (0.3-0.9) Eosinophils # 0.410^3/ul (0.0-0.5) Basophils # 0.010^3/ul (0.0-0.1) Nucleated Red Blood Cells # 0.010^3/ul (0.0-0.0) Sodium Level 146mmol/L (135-144) Potassium Level 3.5mmol/L (3.5-5.1) Chloride Level 105mmol/L (97-110) Carbon Dioxide Level 31mmol/L (21-31) Anion Gap 14 (8-16) Blood Urea Nitrogen 61mg/dl (7-20) Creatinine 2.78mg/dl (0.61-1.24) Glucose Level 106mg/dl (70-220) Calcium Level 9.2mg/dl (8.4-10.2) Test 02/16/17 11:28 Bedside Glucose 152mg/dL (70-220) CONCEPCION CLINE NP Feb 16, 2017 15:05
--- NOTE | 2017-02-16 15:44 | CONS ---
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 - now back in normal sinus rhythm with 1: 1 AV conduction Acute decompensated systolic heart failure - improved Pleural effusion - status post right thoracentesis 02/15/2017 Cardiomyopathy, LVEF 20-25% - likely combination of ischemic and valvular etiologies Severe aortic stenosis Coronary artery disease - history of multiple myocardial infarctions and coronary stents, most recently to the left anterior descending artery ( February 2016, [facility]) Hypertension Dyslipidemia Diabetes mellitus, insulin-dependent Acute kidney injury on chronic kidney disease Benign prostate hyperplasia Peripheral vascular disease - status post bilateral lower extremity bypass surgery Carotid stenosis - bilateral 50-69% on carotid Doppler January 2015 History of stroke Aspirin allergy - patient reports severe reaction with airway compromise Recommendations: -discussed risks and benefits of permanent pacemaker, including risk for syncope or cardiac arrest without a pacemaker - patient understands and declines pacemaker -overall, complex and difficult situation -patient reports being previously determined not to be a candidate for coronary artery bypass graft surgery due to lack of venous grafts -patient not a candidate for percutaneous coronary intervention due to severe aspirin allergy -without option for coronary revascularization, patient is not a candidate for aortic valve replacement -consideration for hospice -change back to outpatient PO Lasix upon discharge -carvedilol discontinued, continue lisinopril 2.5mg daily and up titrate as needed/tolerated -continue ticagrelor 90mg BID -continue atorvastatin 80mg daily Problems: Consultation Date/Type/Reason Admit Date/Time Feb 13, 2017 at 14:15 Initial Consult Date Type of Consultation: Cardiology 24 HR Interval Summary Free Text/Dictation No acute events. Breathing comfortably on room air. Detailed Summary Additional Comments 14 point review of systems without changes. Exam/Review of Systems Vital Signs Vitals Vital Signs Date Time Temp Pulse Resp B/P Pulse Ox O2 Delivery O2 Flow Rate FiO2 02/16/17 15:33 98.3 68 18 110/47 98 02/16/17 07:45 Nasal Cannula 4.0 02/15/17 03:03 30 Intake and Output 02/15/17 02/15/17 02/16/17 15:00 23:00 07:00 Intake Total 440 ml Output Total 1100 ml Balance -660 ml Exam Constitutional: alert, well developed Psych: nl mood/affect, no complaints Head: atraumatic, normocephalic Eyes: nl conjunctiva, nl lids ENMT: nl external ears & nose, nl nasal mucosa & septum Neck: non-tender, supple Respiratory: clear to auscultation Cardiovascular: regular rate and rhythm, systolic murmur Gastrointestinal: non-tender, soft Musculoskeletal: nl extremities to inspection Extremities: No clubbing, No cyanosis, No edema Neurological: nl mental status, nl speech Results Result Diagram: 02/16/17 0601 02/16/17 0601 Results 24 hrs Laboratory Tests Test 02/15/17 17:18 02/15/17 20:39 02/16/17 06:01 02/16/17 07:18 Bedside Glucose 145 153 106 White Blood Count 8.3 Red Blood Count 3.60 L Hemoglobin 9.8 L Hematocrit 31.8 L Mean Corpuscular Volume 88.3 Mean Corpuscular Hemoglobin 27.2 L Mean Corpuscular Hemoglobin Concent 30.8 L Red Cell Distribution Width 16.2 H Platelet Count 257 # Mean Platelet Volume 11.2 H Neutrophils % 67.8 Lymphocytes % 17.4 Monocytes % 8.6 Eosinophils % 5.3 Basophils % 0.5 Nucleated Red Blood Cells % 0.0 Neutrophils # 5.7 Lymphocytes # 1.5 Monocytes # 0.7 Eosinophils # 0.4 Basophils # 0.0 Nucleated Red Blood Cells # 0.0 Sodium Level 146 H Potassium Level 3.5 Chloride Level 105 Carbon Dioxide Level 31 Anion Gap 14 Blood Urea Nitrogen 61 H Creatinine 2.78 H Glucose Level 106 Calcium Level 9.2 Test 02/16/17 11:28 Bedside Glucose 152 Medications Medications Current Medications Ondansetron HCl (Zofran Inj) 4 mg Q6H PRN IV NAUSEA AND/OR VOMITING Last administered on 02/13/17t 22:27; Admin Dose 4 MG; Start 02/13/17 at 19:00 Acetaminophen (Tylenol Tab) 650 mg Q6H PRN PO PAIN LEVEL 1-3 OR FEVER; Start at 19:00 Acetaminophen/ Hydrocodone Bitart ([place] (5/325)) 1 tab Q6H PRN PO MODERATE PAIN LEVEL 4-6; Start 02/13/17 at 19:00 Morphine Sulfate (morphine) 2 mg Q4H PRN IV SEVERE PAIN LEVEL 7-10; Start 02/13 at 19:00 Albuterol (Ventolin Hfa) 2 puff Q6H PRN INH WHEEZING AND SOB; Start 02/13/17 at 19:00 Atorvastatin Calcium (Lipitor) 80 mg HS PO Last administered on 02/15/17 20:40 ; Admin Dose 80 MG; Start 02/13/17 at 21:00 Calcitriol (Rocaltrol) 0.25 mcg DAILY PO Last administered on 02/16/17 08:15; Admin Dose 0.25 MCG; Start 02/14/17 at 09:00 EZETIMIBE (Zetia) 10 mg DAILY PO Last administered on 02/16/17 08:15; Admin Dose 10 MG; Start 02/14/17 at 09:00 Ferrous Sulfate (Ferrous Sulfate (Ec)) 325 mg BID PO Last administered on 08:15; Admin Dose 325 MG; Start 02/13/17 at 21:00 Finasteride (Proscar) 5 mg DAILY PO Last administered on 02/16/17 08:15; Admin Dose 5 MG; Start 02/14/17 at 09:00 Gabapentin (Neurontin) 300 mg QHS PO Last administered on 02/15/17 20:40; Admin Dose 300 MG; Start 02/13/17 at 21:00 Insulin Glargine (Lantus) 40 unit HS SC Last administered on 02/15/17 20:46; Admin Dose 40 UNIT; Start 02/13/17 at 21:00 Lisinopril (Zestril) 2.5 mg DAILY PO Last administered on 02/16/17 08:16; Admin Dose 2.5 MG; Start 02/14/17 at 09:00 Nitroglycerin (Nitroglycerin (Sl Tab) 0.4 Mg) 1 tab [id number] PRN SL CHEST PAIN ; Start 02/13/17 at 19:00 Pantoprazole (Protonix Tab) 40 mg DAILY PO Last administered on 02/16/17 08:15 ; Admin Dose 40 MG; Start 02/14/17 at 09:00 Tamsulosin HCl (Flomax) 0.4 mg DAILY PO Last administered on 02/16/17 08:15; Admin Dose 0.4 MG; Start 02/14/17 at 09:00 Ticagrelor (Brilinta) 90 mg Q12 PO Last administered on 02/16/17 08:14; Admin Dose 90 MG; Start 02/13/17 at 21:00 Miscellaneous Information 1 ea NOTE XX ; Start 02/13/17 at 19:30 Glucose (Glutose) 15 gm Q15M PRN PO DECREASED GLUCOSE; Start 02/13/17 at 19:30 Glucose (Glutose) 22.5 gm Q15M PRN PO DECREASED GLUCOSE; Start 02/13/17 at 19: 30 Dextrose (D50w Syringe) 25 ml Q15M PRN IV DECREASED GLUCOSE; Start 02/13/17 at 19:30 Dextrose (D50w Syringe) 50 ml Q15M PRN IV DECREASED GLUCOSE; Start 02/13/17 at 19:30 Glucagon (Glucagen) 1 mg Q15M PRN IM DECREASED GLUCOSE; Start 02/13/17 at 19:30 Glucose (Glutose) 15 gm Q15M PRN BUCCAL DECREASED GLUCOSE; Start 02/13/17 at 19 :30 Diagnostic Test (Pha) (Accu-Chek) 1 ea 02 XX Last administered on 02/15/17 02: 44; Admin Dose 1 EA; Start 02/15/17 at 02:00 Docusate Sodium (Colace) 100 mg BID PO Last administered on 02/16/17 08:15; Admin Dose 100 MG; Start 02/14/17 at 21:00 Heparin Sodium (Porcine) (Heparin (5000 Units/0.5 ml)) 5,000 unit BID SC Last administered on 02/16/17 08:14; Admin Dose 5,000 UNIT; Start 02/15/17 at 09:00 MELONY BRITO MD Feb 16, 2017 15:44
== END 2017-02-16 16:00 | disposition home or self-care (01) | DRG 291 ==
LOC: E/R 12:35 → TEL 14:15
PROVIDERS: ADMIT Internal Medicine; ATTEND Internal Medicine
PROC: 0W993ZZ Drainage of Right Pleural Cavity, Percutaneous Approach (ICD-10-PCS; principal; 2017-02-15)
DX: I13.0 Hypertensive heart and chronic kidney disease with heart failure and stage 1 through stage 4 chronic kidney disease, or unspecified chronic kidney disease (principal); I50.23 Acute on chronic systolic (congestive) heart failure; I44.2 Atrioventricular block, complete; N17.9 Acute kidney failure, unspecified; N18.4 Chronic kidney disease, stage 4 (severe); J90 Pleural effusion, not elsewhere classified; E11.22 Type 2 diabetes mellitus with diabetic chronic kidney disease; E11.51 Type 2 diabetes mellitus with diabetic peripheral angiopathy without gangrene; I25.5 Ischemic cardiomyopathy; I35.0 Nonrheumatic aortic (valve) stenosis; I25.10 Atherosclerotic heart disease of native coronary artery without angina pectoris; I25.2 Old myocardial infarction; D64.9 Anemia, unspecified; N40.0 Benign prostatic hyperplasia without lower urinary tract symptoms; G47.30 Sleep apnea, unspecified; I65.23 Occlusion and stenosis of bilateral carotid arteries; Z95.1 Presence of aortocoronary bypass graft; E78.5 Hyperlipidemia, unspecified; Z86.73 Personal history of transient ischemic attack (TIA), and cerebral infarction without residual deficits; Z89.411 Acquired absence of right great toe; Z95.5 Presence of coronary angioplasty implant and graft; Z79.4 Long term (current) use of insulin; Z88.0 Allergy status to penicillin; Z88.6 Allergy status to analgesic agent; Z87.891 Personal history of nicotine dependence
CPT/HCPCS: 32555; 36415; 71010; 74176; 80048; 80053; 81001; 81003; 82043; 82945; 82962; 83036; 83615; 83690; 83735; 83880; 84100; 84155; 84157; 84300; 84484; 85025; 85610; 85730; 87070; 87102; 87116; 89051; 93005; 94660; 96374; J1644; J1815; J1940; J2405

== ENCOUNTER 2017-11-30 22:39 | Inpatient (IN) | END 2017-12-05 16:43 | disposition home health service (06) | DRG 291 ==